=== PATIENT | male | born 1940 | race Caucasian/White ===

== ENCOUNTER 2023-07-23 10:38 | Emergency (ER) | payer OTHER, SELFPAY ==
[2023-07-23 10:42] VITALS: BP 151/62; PULSE 104; RESP 18; TEMP 36.2; O2SAT 94; BMI 27.4
[2023-07-23 11:00] VITALS: O2SAT 95
--- NOTE | 2023-07-23 11:00 | XR_ITS ---
Patient: PAULO DUBOIS Facility:?[facility] Patient ID:?[id number] Site Patient ID:?[id number]. Site :?[id number] Study:?XRay-Chest CHEST XR 2 VIEWS-07/23/2023 11:23:29 AM Ordering Physician:CORY Final Report: Indication: Shortness of breath Technique: Chest 2 views Comparison: None Findings/Impression: Cardiovascular and mediastinum: Borderline heart size with atherosclerotic calcification. Lungs and pleural spaces: No pleural effusion or pneumothorax. Mild hyperinflation with basilar discoid atelectasis, greater on the left. Bones and soft tissues: No significant findings. Dictated by Yohan Rocha MD @ 07/23/2023 11:47:05 AM Signed by:?Yohan Rocha MD @07/23/2023 11:47:05 AM (Electronic Signature)
[2023-07-23 11:17] LABS: Lactate* 1.7 mmol/L (0.5-1.9)
[2023-07-23 11:23] LABS: Basophils Absolute Auto 0.03 K/uL (0.00-0.30); Basophils Percent Auto 0.4 % (0.0-3.0); Eosinophils Absolute Auto 0.09 K/uL (0.00-0.50); Eosinophils Percent Auto 1.2 % (0.0-7.0); Hematocrit 47.9 % (37.0-53.0); Hemoglobin* 15.7 gm/dL (13.5-17.5); Immature Granulocytes Abs Auto 0.02 K/uL (0.00-0.30); Immature Granulocytes Pct Auto 0.3 %; Lymphocytes Percent Auto 19.9 % (20-44); Mean Corpuscular HGB Conc 33 gm/dL (32-36); Mean Corpuscular Hemoglobin 31 pg (26-34); Mean Corpuscular Volume 94 fL (80-100); Monocytes Percent Auto 7.9 % (0.0-11.0); Neutrophils Absolute Auto 5.49 K/uL (1.7-7.0); Neutrophils Percent Auto 70.3 % (42.0-72.0); Platelet Count* 233 K/uL (140-440); RDW Coefficient of Variation % 14.5 % (11.5-15.5); Red Blood Count 5.08 m/uL (4.30-5.90)
[2023-07-23 11:26] LABS: Slide Review Reflex No
[2023-07-23] MEDS: METOPROLOL TARTRATE 1 MG/ML inj 5 MG IVP (11:33)
--- NOTE | 2023-07-23 11:35 | ED_ITS ---
HPI - General Adult General Chief complaint: Arrhythmia/Palpitations Stated complaint: afib Time Seen by Provider: 07/23/23 10:44 Source: patient Mode of arrival: ambulatory Limitations: no limitations History of Present Illness HPI narrative: 82-year-old male coming in today or shortness of breath. Patient was diagnosed with atrial fibrillation about a week ago. He was placed on Eliquis and metoprolol 12.5 mg p.o. b.i.d.. He is not sure what his pulse has been but he does state that he has been short of breath for several weeks now and in the last 1 week or so it has gotten worse. He feels short of breath at rest and with activity. He denies any chest pain, nausea or vomiting. No fevers or chills. No dizziness or diaphoresis. He was getting an echocardiogram today when he mentioned that he felt short of breath and he was sent to the ER for evaluation. Per the reproduction technician, pulse ranged between 110 and 150. Patient denies any chest pain. 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 - Carcinoma in situ of bladder (ICD-10) Surgical History History of bladder surgery ?Z98.890 - Other specified postprocedural states (ICD-10) History of prostatectomy ?Z90.79 - Acquired absence of other genital organ(s) (ICD-10) History of tonsillectomy (02/04/13) ?Z90.89 - Acquired absence of other organs (ICD-10) History of colonoscopy ?Z98.890 - Other specified postprocedural states (ICD-10) History of appendectomy ?Z90.49 - Acquired absence of other specified parts of digestive tract (ICD- 10) Family History Mother Breast cancer Endogenous hypertriglyceridemia Other Stroke Social History Narrative: Has 3 children Smoking Status: Never smoker Do you use any of these nicotine containing products: None How often do you have a drink containing alcohol: never AUDIT-C Alcohol total score: 0 Exam Narrative: Exam Narrative: Well-nourished well-developed patient in no acute distress. Alert and oriented. Answers questions appropriately. Mood and affect are appropriate. Thoughts are goal oriented and rational. No tangential or magical thinking noted. Patient speaks in full sentences without needing to catch his breath. HEENT: Normocephalic atraumatic. Pupils are equally round reactive to light. Extraocular muscles are intact. Conjunctivae are moist without any icterus noted. Moist mucous membranes. Neck is soft. Cardiovascular: Tachycardic, irregularly irregular. Lungs: Clear to auscultation bilaterally no wheezes rhonchi or rales are appreciated. Patient takes deep breaths without any discomfort. Abdomen: Soft and nontender nondistended with normal bowel sounds. No guarding or rebound. Extremities: Bilateral lower extremities are without edema. Skin: Well perfused without any obvious rashes. Const: Vital Signs, click to edit/add: Vital Signs - 24 hr 07/23/23 10:42 Temperature 97.2 F L Pulse Rate [Pulse Oximeter] 104 H Respiratory Rate 18 Blood Pressure [Le ft Upper Arm] 151/62 H Pulse Oximetry 94 Oxygen Delivery Me thod Room Air Course Course ED Course: EKG, read by me, shows atrial fibrillation with RVR, pulse is 124. IV is established patient received 5 mg of IV metoprolol. Pulse came down to the 90s. Oxygen saturation remained around 95% at rest, 94 95% with ambulation. Blood work was unremarkable, including troponin and D-dimer. Chest x-ray, read by me, did not show any concerning pathology. Patient is given another 12.5 mg of oral metoprolol prior to discharge. Will increase his daily doses 25 mg p.o. b.i.d.. Vital Signs Vital signs: Initial Vital Signs Respiratory Effort Normal, Spontaneous, Labored, SOB at Exertion 07/23/23 10:40 Respiratory Depth Normal 07/23/23 10:40 Vital Signs Temperature 97.2 F L 07/23/23 10:42 Pulse Rate 104 H 07/23/23 10:42 Respiratory Rate 18 07/23/23 10:42 Blood Pressure 151/62 H 07/23/23 10:42 Pulse Oximetry 94 07/23/23 10:42 Oxygen Delivery Method Room Air 07/23/23 10:42 Temperature 97.2 F L 07/23/23 10:42 Pulse Rate 104 H 07/23/23 10:42 Respiratory Rate 18 07/23/23 10:42 Blood Pressure 151/62 H 07/23/23 10:42 Pulse Oximetry 94 07/23/23 10:42 Oxygen Delivery Method Room Air 07/23/23 10:42 Medications Administered Medications: Discontinued Medications Generic Name Dose Route Start Last Admin Trade Name Freq PRN Reason Stop Dose Admin Metoprolol Tartrate 5 mg 07/23/23 11:00 07/23/23 11:33 Metoprolol Tartrate 1 Mg/Ml Inj IVP 07/23/23 11:01 5 mg ONCE ONE Administration Medical Decision Making MDM Narrative Medical decision making narrative: 82-year-old male with shortness of breath for several weeks, new onset atrial fibrillation not properly rate controlled at this time. He is anticoagulated. We will increase his metoprolol to 25 mg p.o. b.i.d.. Recommend follow-up with his primary care provider this week. Medical Records Medical records reviewed: Yes I reviewed the patient's medical records Lab Data Lab results reviewed: Yes I reviewed the patient's lab results Labs: Lab Results 07/23/23 07/23/23 Range/Units 11:01 11:08 WBC 7.80 (4.50-11.00) K/uL RBC 5.08 (4.30-5.90) m/uL Hgb 15.7 (13.5-17.5) gm/dL Hct 47.9 (37.0-53.0) % MCV 94 (80-100) fL MCH 31 (26-34) pg MCHC 33 (32-36) gm/dL RDW Coeff of Mima 14.5 (11.5-15.5) % Plt Count 233 (140-440) K/uL Neut % (Auto) 70.3 (42.0-72.0) % Lymph % (Auto) 19.9 L (20-44) % [place] % (Auto) 7.9 (0.0-11.0) % Eos % (Auto) 1.2 (0.0-7.0) % Baso % (Auto) 0.4 (0.0-3.0) % Neut # (Auto) 5.49 (1.7-7.0) K/uL Lymph # (Auto) 1.60 (0.90-2.90) K/uL [place] # (Auto) 0.60 (0.00-0.90) K/UL Eos # (Auto) 0.09 (0.00-0.50) K/uL Baso # (Auto) 0.03 (0.00-0.30) K/uL Abs Immat Gran (auto) 0.02 (0.00-0.30) K/uL Imm/Tot Granulo (auto) 0.3 % D-Dimer Quant (PE/DVT) 0.44 (0.00-0.50) ug/ml Sodium 141 (135-149) mmol/L Potassium 4.3 (3.6-5.1) mmol/L Chloride 109 (96-114) mmol/L Carbon Dioxide 23 (20-32) mmol/L Anion Gap 9 (7-15) mEq/L BUN 23 (7-30) mg/dL Creatinine 1.0 (0.5-1.5) mg/dL Estimated Creat Clear 55.08 Estimated GFR 76 ml/min Glucose 115 (60-115) mg/dL Lactate 1.7 (0.5-1.9) mmol/L Calcium 9.4 (8.4-10.6) mg/dL Magnesium 2.0 (1.5-2.6) mg/dL Total Bilirubin 1.0 (0.1-1.5) mg/dL Direct Bilirubin 0.3 (0.0-0.5) mg/dL AST 35 (12-35) U/L ALT 25 (4-50) U/L Alkaline Phosphatase 74 (40-150) U/L Troponin I 0.02 (0.01-0.04) ng/mL C-Reactive Protein < 0.5 L (0.5-1.0) mg/dL Total Protein 7.9 (6.0-8.3) g/dL Albumin 4.4 (3.3-5.0) g/dL POC Troponin I 0.00 L (0.01-0.04) ng/ml Imaging Data Chest x-ray: Attestation: I have reviewed the pertinent imaging results. Radiologist's impression: Shortness of breath Technique: Chest 2 views Comparison: None Findings/Impression: Cardiovascular and mediastinum: Borderline heart size with atherosclerotic calcification. Lungs and pleural spaces: No pleural effusion or pneumothorax. Mild hyperinflation with basilar discoid atelectasis, greater on the left. Bones and soft tissues: No significant findings. Discharge Plan Discharge Clinical Impression: Atrial fibrillation with rapid ventricular response Patient Disposition: Home, Self-Care Condition: Stable Additional Instructions: Increase metoprolol to 25 mg twice daily. Follow-up with your primary care provider in the next 48-72 hours. Prescriptions: No Action metoprolol succinate 25 mg tablet extended release 24 hr 12.5 mg PO QDAY Qty: 30 0RF Eliquis 2.5 mg tablet 2.5 mg PO BID Qty: 60 1RF Follow Up/Referrals: Sara Laureano PA-C [Primary Care Provider] - Stand Alone Forms: Datapipe Info Instructions
[2023-07-23 11:37] LABS: Albumin* 4.4 g/dL (3.3-5.0)
[2023-07-23 11:38] LABS: Chloride* 109 mmol/L (96-114); Potassium* 4.3 mmol/L (3.6-5.1); Sodium* 141 mmol/L (135-149)
[2023-07-23 11:40] LABS: Aspartate Amino Transferase* 35 U/L (12-35); Bilirubin Direct* 0.3 mg/dL (0.0-0.5); Total Protein* 7.9 g/dL (6.0-8.3)
[2023-07-23 11:41] LABS: Alanine Aminotransferase* 25 U/L (4-50); Alkaline Phosphatase* 74 U/L (40-150); Est. Creatinine Clearance* 55.08; Estimated Glomerular Filt Rate 76 ml/min
[2023-07-23 11:42] LABS: Anion Gap 9 mEq/L (7-15); Blood Urea Nitrogen* 23 mg/dL (7-30); Calcium* 9.4 mg/dL (8.4-10.6); Carbon Dioxide* 23 mmol/L (20-32); Glucose* 115 mg/dL (60-115)
[2023-07-23 11:44] LABS: D Dimer Quantitative* 0.44 ug/ml (0.00-0.50)
[2023-07-23 11:53] LABS: Troponin I* 0.02 ng/mL (0.01-0.04)
[2023-07-23 11:56] LABS: C Reactive Protein* < 0.5 mg/dL (0.5-1.0)
[2023-07-23 12:45] VITALS: BP 122/80; PULSE 89; RESP 18; O2SAT 95
== END 2023-07-23 12:48 | disposition home or self-care (01) ==
PROVIDERS: Emergency Provider Family Medicine; PCP Physician Assistant Medical
DX: I48.20 Chronic atrial fibrillation, unspecified (principal)
CPT/HCPCS: 36415; 71046; 80048; 80076; 83605; 83735; 84484; 85025; 85379; 86140; 93005; 93306; 94761; 99284; 99285

== ENCOUNTER 2023-08-07 09:59 | Outpatient (CLI) | payer OTHER, SELFPAY | END 2023-08-07 10:00 | disposition home or self-care (01) | LOC: FRMREF 09:59 | PROVIDERS: PCP Physician Assistant Medical; Visit Provider Physician Assistant Medical | DX: I50.20 Unspecified systolic (congestive) heart failure (principal) | CPT/HCPCS: 80061 ==

== ENCOUNTER 2023-08-13 09:35 | Outpatient (CLI) | payer OTHER, SELFPAY ==
--- NOTE | 2023-08-13 10:00 | CT_ITS ---
Patient: PAULO DUBOIS Facility:?[facility] Patient ID:?[id number] Site Patient ID:?[id number]. Site :?1940 Study:?CT-Chest LUNG SCREENING-08/13/2023 11:09:35 AM Ordering Physician:?SEBASTIÁN CRAWFORD Final Report: INDICATION: Lung cancer screening. Significant smoking history. TECHNIQUE: Low-dose volumetric helical scanning of the thorax was performed without IV contrast material. Coronal and sagittal reconstructions were obtained. COMPARISON: Chest x-ray of 07/23/2023 FINDINGS: A noncalcified 7 mm right lower lobe base nodule is noted on image 103 of series 3 and a noncalcified 6 mm right upper lobe nodule is demonstrated on image 40. Centrilobular emphysema is demonstrated. No infiltrate is noted. There is no significant airway abnormality. No pleural effusion is demonstrated. Several mildly enlarged mediastinal lymph nodes are demonstrated. No hilar adenopathy is demonstrated. The heart size is normal. Calcified coronary arterial plaque is demonstrated. Images of the upper abdomen demonstrate a 1.5 cm left renal cyst. IMPRESSION: 1. Noncalcified 7 mm right lower lobe nodule and 6 mm right upper lobe nodule. Lung-RADS CATEGORY 3: PROBABLY BENIGN: 6-month follow up low-dose chest CT recommended. 2. Centrilobular emphysema. Please note that all CT scans at this facility use dose modulation, iterative reconstruction, and/or weight-based dosing when appropriate to reduce radiation dose to as low as reasonably achievable. Dictated by Harshad Pino MD @ 08/13/2023 4:47:03 PM Signed by:?Harshad Pino MD @08/13/2023 4:47:03 PM (Electronic Signature)
--- NOTE | 2023-08-13 11:00 | US_ITS ---
Patient: PAULO DUBOIS Facility:?[facility] Patient ID:?[id number] Site Patient ID:?[id number] Site :?[id number] Study:?US-Abdomen AAA SCREENING-08/13/2023 10:16:21 AM Ordering Physician:MARGI LOWERY Final Report: INDICATION: Screening for abdominal aortic aneurysm. History of nicotine dependence. TECHNIQUE: Conventional two-dimensional grayscale, color-flow and pulsed Doppler ultrasound examination of the abdominal aorta and the common iliac arteries. COMPARISON: None. FINDINGS: Mild atherosclerotic disease is demonstrated, but the abdominal aorta is normal in caliber at 2.4 cm in maximal cross-sectional dimension above the level of the renal artery origins and 2.6 cm below the level of the renal arteries. The common iliac arteries are also normal in caliber. The right measures 1.4 cm in maximal cross-sectional dimension and the left 1.3 cm. IMPRESSION: Negative abdominal aortic ultrasound except for mild atherosclerosis. Dictated by Harshad Pino MD @ 08/13/2023 2:58:54 PM Signed by:?Harshad Pino MD @08/13/2023 2:58:54 PM (Electronic Signature)
== END 2023-08-13 09:36 | disposition home or self-care (01) ==
LOC: CT 09:36
PROVIDERS: PCP Physician Assistant Medical; Visit Provider Family Medicine
DX: Z12.2 Encounter for screening for malignant neoplasm of respiratory organs (principal); R91.8 Other nonspecific abnormal finding of lung field; J43.8 Other emphysema; Z87.891 Personal history of nicotine dependence
CPT/HCPCS: 71271; 76706

== ENCOUNTER 2023-09-25 09:22 | Outpatient (CLI) | payer OTHER, SELFPAY ==
--- NOTE | 2023-10-10 08:26 | W.PM.SLEEP ---
Sleep Study Details Details Interpreting Provider: Viktoriya Date of Sleep Study: 09/25/23 Sleep Study Details: STUDY TYPE:? Home unattended ? BMI: Not recorded ORDERING PROVIDER:? Viktoriya INDICATION:? Concerns about sleep apnea ? SLEEP SUMMARY:? 177 minutes monitored RESPIRATORY SUMMARY:? AHI 21.4 per CMS guideline nearly 1/2 of the apneas were central Low oxygen 87 19.7% of study oxygen less than 90% snoring 336 minutes PERIODIC LIMB MOVEMENTS OF SLEEP:? Not recorded CARDIAC:? Range 43-61, mean 50.5 IMPRESSION:? 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 Patient may require ASV. If possible an echocardiogram should be done prior to determine ejection fraction.
== END 2023-09-25 09:23 | disposition home or self-care (01) ==
LOC: SLEEP 09:23
PROVIDERS: PCP Physician Assistant Medical; Visit Provider Otolaryngology
DX: G47.33 Obstructive sleep apnea (adult) (pediatric) (principal)
CPT/HCPCS: 95806

== ENCOUNTER 2023-11-13 19:55 | Outpatient (CLI) | payer OTHER, SELFPAY ==
--- OUTSIDE RECORDS SUMMARY | 2023-11-13 19:58 | XMS_ITS ---
Author Organization [facility] Address [address] [place] [id number] Care Team Providers Care Watch Dial Printer Name Role Phone Pilo Cameron Primary Care Provider + [phone] Weight, Kiran Valdes MD Unavailable Active Problems Problem Noted Date Diagnosed Date Ventral hernia 12/02/2015 Vitamin B12 deficiency without anemia 10/07/2014 Overview: Diagnosis updated by automated process. Provider to review and confirm. Bladder cancer 01/24/2013 CA - bladder cancer 09/23/2012 Overview: Problem list name updated by automated process. Provider to review and confirm Bladder tumor 08/14/2012 Gross hematuria 08/14/2012 Current Oncology Plans No current plan information found. Past Plans INFUSION Plan Name Start Date Discontinue Date Treatment Medications Discontinue Reason Plan Provider VASCULAR ACCESS DEVICE MANAGEMENT - ADULT 12/26/2018 06/28/2020 No medications scheduled. Therapy Complete Manoj Bee MD GENERIC INFUSION 12/31/2017 12/26/2018 No medications scheduled. Therapy Complete - GENERIC INFUSION 11/26/2017 11/29/2017 No medications scheduled. Change in Level of Care - GENERIC INFUSION 06/03/2015 11/15/2017 No medications scheduled. Change in Level of Care - ONCOLOGY TREATMENT Plan Name Start Date Discontinue Date Treatment Medications Discontinue Reason Plan Provider Cycles OP ONC Bladder Cancer Gemcitabine / CISplatin 3 12/29/2016 CISplatin (PLATINOL) infusiongemcitabine (GEMZAR) infusion Therapy Complete Chris Armstrong MD 4 of 4 cycles started Radiation Treatments * No radiation treatments are documented for this patient in [facility]. Treatments may have been administered in another system.
--- OUTSIDE RECORDS SUMMARY | 2023-11-13 19:58 | XMS_ITS | Clinical Summary ---
Author Organization [facility] Address [address] [place] [address] Care Team Providers Care Operational Assistant Name Role Phone Pilo Cameron Primary Care Provider + [phone] Weight, Kiran Valdes MD Unavailable Allergies Active Allergy Reactions Criticality Noted Date Comments Menthol (Topical Analgesic) Rash Low 08/13/19 13 Medications Medication Sig Dispensed Refills Start Date End Date Status Cyanocobalamin (VITAMIN B-12) 2500 MCG tabletIndication s:Malignant neoplasm of urinary bladder, unspecified site (H),Vitamin B12 deficiency (non anaemic) Place 2,500 mcg under the tongue daily 30 tablet 6 10/07/2014 Active Additional Information Patient taking differently: 5,000 mcgSublingual DAILY, Reported on 08/07/2016 NO ACTIVE MEDICATIONS 12/12/19 13 Discontinued( Stopped Prior to Admission or erroneus entry) Active Problems Problem Noted Date Diagnosed Date Ventral hernia 12/02/2015 Vitamin B12 deficiency without anemia 10/07/2014 Overview: Diagnosis updated by automated process. Provider to review and confirm. Bladder cancer 01/24/2013 CA - bladder cancer 09/23/2012 Overview: Problem list name updated by automated process. Provider to review and confirm Bladder tumor 08/14/2012 Gross hematuria 08/14/2012 Immunizations Name Administration Dates Next Due COVID-19 Monovalent 18+ (Moderna) 07/27/2020 Family History Medical History Relation Comments Cancer Brother Cerebrovascular Disease Father Breast Cancer Mother Cerebrovascular Disease Mother Colon Cancer No family hx of Relation Status Comments Brother Father Mother Social History Tobacco Use Types Packs/Day Years Used Date Smoking Tobacco: Former Cigarettes 0.5 50 0 10/22/1962 - 10/22/2012 Smokeless Tobacco: Never Alcohol Use Standard Drinks/Week Comments Yes 0 (1 standard drink = 0.6 oz pur e alcohol) 4 beers daily PHQ-2 Answer Date Recorded PHQ-2 Score 0 02/10/2021 Adolescent Education Answer Date Record ed Getting School Help Needed Not on file 01/22 Sex and Gender Information Value Date Recorded Sex Assigned at Not on file Gender Identity Not on file Sexual Orientation Not on file Last Filed Vital Signs Vital Sign Reading Time Taken Comments Blood Pressure 165/91 02/10/2021 9:50 AM CDT Pulse 90 02/10/2021 9:50 AM CDT Temperature 36.4 ??C (97.5 ??F) 05/21/2019 10:[address] Respiratory Rate 16 05/21/2019 10:56 AM SKIDDER OPERATOR Oxygen Saturation 95% 05/21/2019 10:56 AM SKIDDER OPERATOR Inhaled Oxygen Concentration - - Weight 79.4 kg (175 lb) 02/10/2021 9:50 AM CDT Height 170.2 cm (5' 7) 02/10/2021 9:50 AM CDT Body Mass Index 27.41 02/10/2021 9:50 AM CDT Plan of Treatment Health Maintenance Due Date Last Done Comments ADVANCE CARE PLANNING 1940 ANNUAL REVIEW OF HM ORDERS 1940 DTAP/TDAP/TD IMMUNIZATION (1 - Tdap) 10/14/1967 ZOSTER IMMUNIZATION (1 of 2) 1992 RSV VACCINE ( & 60+) (1 - 1-dose 60+ series) 2002 FALL RISK ASSESSMENT 10/14/2007 MEDICARE ANNUAL WELLNESS VISIT 10/14/2007 Pneumococcal Vaccine: 65+ Years (1 of 1 - PCV) 10/14/2007 COVID-19 Vaccine (3 - season) 2022 07/27/2020, 06/30/2020 PHQ-2 (once per calendar year) 2023 02/10/2021, 08/07/2016, 02/07/2016, Additional history exists INFLUENZA VACCINE (#1) 2023 COLONOSCOPY Discontinued 03/29/2017, 11/21, 09/18/2012, Additional history exists COLORECTAL CANCER SCREENING Discontinued LUNG CANCER SCREENING Discontinued 02/04/2018 , 02/05/2017, 08/02/2015, Additional history exists CT COLONOGRAPHY Discontinued FIT Discontinued FLEX SIG Discontinued HPV IMMUNIZATION Aged Out No longer e ligible based on patient's age to complete this topic IPV IMMUNIZATION Aged Out No longer e ligible based on patient's age to complete this topic MENINGITIS IMMUNIZATION Aged Out No l onger eligible based on patient's age to complete this topic RSV MONOCLONAL ANTIBODY Aged Out No l onger eligible based on patient's age to complete this topic sDNA (Cologuard) Discontinued Medical Devices Implanted Type Area Operations Expert Device Identifier Shelf Expiration Date Model / Serial / Lot Parietex Composite Parastomal Mesh Implanted:Qty: 1 on 12/02/2015 by Rocky Sands MD at [facility] Mesh N/A: Abdomen COVIDIEN 08/20/2018 [id number] / / [id number] Stent Ureteral Dbl Pigtail Inlay [id number] Implanted:Qty: 1 on 08/14/2012 by Salvador Yoo MD at [facility] Left: Ureter [employer] 04/21/2017 [id number] / / [id number] Stent Urinary Diversion Percflex Set [id number] W/Gw Implanted:Qty: 1 on 01/24/2013 by Ana Madrid MD at [facility] [employer] 10/20/2016 160-210 / / [id number] Mesh Symbotex Composite Stex Round 12cm Sym12 Implanted:Qty: 1 on 12/02/2015 by Rocky Sands MD at [facility] N/A: Abdomen COVIDIEN 01/21/2020 [id number] / / [id number] Description:RInsed mesh impl ant per Covidien Rep recommendations: sterile 0.9% normal saline from 1177-5544 hours. Saline lot: [id number], expiration date: 10/20/2018. This implant is NOT tissue. Procedures Procedure Name Priority Date/Time Associated Diagnosis Comments CT CHEST ABDOMEN PELVIS W/O CONTRAST Routine 02/04/2018 9:22 AM CDT Bladder tumor COLONOSCOPY Routine 03/29/2017 12:52 PM SKIDDER OPERATOR from Last 3 Months or Most Recently Relevant to Health Maintenance Results * CT Chest Abdomen Pelvis w/o Contrast (02/04/2018 9:22 AM CDT) Anatomical Region Laterality Modality Abdomen/Pelvis, SUBRAD CT ZULEMA DY, UMP CT CHEST, UMP CT ABDOMEN PELVIS, Chest, RAD CT Computed Tomography Impressions 02/04/2018 9:51 AM CDT IMPRESSION: 1. No significant interval change. No evidence of recurrent or metastatic disease. 2. Stable bilateral adrenal gland nodularity. 3. Stable small lung nodules. ANAM DIAZ MD Narrative 02/04/2018 9:[address] CHEST, ABDOMEN AND PELVIS WITHOUT CONTRAST ??02/04/2018 9:22 AM HISTORY: ??Follow up bladder cancer. Bladder tumor. TECHNIQUE: CT scan obtained of the chest, abdomen, and pelvis without IV contrast. Radiation dose for this scan was reduced using automated exposure control, adjustment of the mA and/or kV according to patient size, or iterative reconstruction technique. COMPARISON: ??02/05/2017. FINDINGS: Chest: There is again a 0.3 cm nodule in the right upper lobe posteriorly. 0.5 cm nodule at the right lung base laterally is stable. Slight nodularity along the right major and minor fissures is stable and of doubtful significance. Mild scarring in the inferior lingula and right middle lobe. Mild scarring in the posterior lung bases. No pneumothorax or pleural effusion. No lymph node enlargement. The heart size is normal. Right chest wall port. Abdomen: Evaluation of the solid abdominal organs is limited by the lack of intravenous contrast. The liver, spleen, gallbladder, pancreas and kidneys are normal in appearance. A 1.2 cm left adrenal gland nodule and nodular thickening of both adrenal glands is stable. There is no abdominal or pelvic lymph node enlargement. There is atherosclerotic calcification of the aorta and its branches. No aneurysm. Pelvis: The urinary bladder is absent. There is a right lower quadrant ileal loop. There are colonic diverticula without acute diverticulitis. No bowel obstruction or inflammation. No free intraperitoneal gas or fluid. Degenerative disease in the spine. Procedure Note Anam Diaz MD - 02/04/2018 CT CHEST, ABDOMEN AND PELVIS WITHOUT CONTRAST 02/04/2018 9:22 AM HISTORY: Follow up bladder cancer. Bladder tumor. TECHNIQUE: CT scan obtained of the chest, abdomen, and pelvis without IV contrast. Radiation dose for this scan was reduced using automated exposure control, adjustment of the mA and/or kV according to patient size, or iterative reconstruction technique. COMPARISON: 02/05/2017. FINDINGS: Chest: There is again a 0.3 cm nodule in the right upper lobe posteriorly. 0.5 cm nodule at the right lung base laterally is stable. Slight nodularity along the right major and minor fissures is stable and of doubtful significance. Mild scarring in the inferior lingula and right middle lobe. Mild scarring in the posterior lung bases. No pneumothorax or pleural effusion. No lymph node enlargement. The heart size is normal. Right chest wall port. Abdomen: Evaluation of the solid abdominal organs is limited by the lack of intravenous contrast. The liver, spleen, gallbladder, pancreas and kidneys are normal in appearance. A 1.2 cm left adrenal gland nodule and nodular thickening of both adrenal glands is stable. There is no abdominal or pelvic lymph node enlargement. There is atherosclerotic calcification of the aorta and its branches. No aneurysm. Pelvis: The urinary bladder is absent. There is a right lower quadrant ileal loop. There are colonic diverticula without acute diverticulitis. No bowel obstruction or inflammation. No free intraperitoneal gas or fluid. Degenerative disease in the spine. IMPRESSION: 1. No significant interval change. No evidence of recurrent or metastatic disease. 2. Stable bilateral adrenal gland nodularity. 3. Stable small lung nodules. ANAM DIAZ MD Elder Thorpe MD [facility] [place]LES * COLONOSCOPY (03/29/2017 12:52 PM SKIDDER OPERATOR) COLONOSCOPY [facility] Patient Name: Alis Greg Mcguire ?Procedure Date: 03/29/2017 12:52 PM ? Date of : 1940 ?Admit Type: Outpatient Age: 76 ? Gender: Male Attending MD: Ever Motley MD ?Total Sedation Time: Instrument Name: 122 ? Procedure: ?Colonoscopy Indications: ?High risk colon cancer surveillance: Personal ?history of colonic polyps Providers: ?Ever Motley MD (Doctor) Referring MD: ? Pilo Cameron MD (Referring MD) Medicines: ?Midazolam 2 mg IV, Fentanyl 150 micrograms IV. The ?MD provided 19 minutes of 1:1 continuous bedside ?monitoring. Complications: ?No immediate complications. Procedure: ?Pre-Anesthesia Assessment: ?- Prior to the procedure, a History and Physical ?was performed, and patient medications and ?allergies were reviewed. The patient is competent. ?The risks and benefits of the procedure and the ?sedation options and risks were discussed with the ?patient. All questions were answered and informed ?consent was obtained. Patient identification and ?proposed procedure were verified by the physician ?in the endoscopy suite. Mental Status Examination: ?alert and oriented. Airway Examination: normal ?oropharyngeal airway and neck mobility. Respiratory ?Examination: clear to auscultation. CV Examination: ?normal. Prophylactic Antibiotics: The patient does ?not require prophylactic antibiotics. Prior ?Anticoagulants: The patient has taken no previous ?anticoagulant or antiplatelet agents. ASA Grade ?Assessment: II - A patient with mild systemic ?disease. After reviewing the risks and benefits, ?the patient was deemed in satisfactory condition to ?undergo the procedure. The anesthesia plan was to ?use moderate sedation / analgesia (conscious ?sedation). Immediately prior to administration of ?medications, the patient was re-assessed for ?adequacy to receive sedatives. The heart rate, ?respiratory rate, oxygen saturations, blood ?pressure, adequacy of pulmonary ventilation, and ?response to care were monitored throughout the ?procedure. The physical status of the patient was ?re-assessed after the procedure. ?After obtaining informed consent, the colonoscope ?was passed under direct vision. Throughout the ?procedure, the patient's blood pressure, pulse, and ?oxygen saturations were monitored continuously. The ?Olympus Adult Colonoscope Model #CF-BO054C, ?Endora#122, SN#[id number] was introduced through the ?anus and advanced to the cecum, identified by ?appendiceal orifice and ileocecal valve. The ?colonoscopy was performed with difficulty due to ?restricted mobility of the colon. Successful ?completion of the procedure was aided by increasing ?the dose of sedation medication and applying ?abdominal pressure. The patient tolerated the ?procedure well. The quality of the bowel ?preparation was good. ? Findings: ? The perianal and digital rectal examinations were normal. Pertinent ? negatives include normal sphincter tone and no palpable rectal lesions. ? A 5 mm polyp was found in the transverse colon. The polyp was sessile. ? The polyp was removed with a cold snare. Resection and retrieval were ? complete. ? Multiple small and large-mouthed diverticula were found in the sigmoid ? colon and descending colon. There was no evidence of diverticular ? bleeding. ? The exam was otherwise without abnormality on direct and retroflexion ? views. ? Impression: ? - One 5 mm polyp in the transverse colon, removed ?with a cold snare. Resected and retrieved. ?- Diverticulosis in the sigmoid colon and in the ?descending colon. There was no evidence of ?diverticular bleeding. ?- The examination was otherwise normal on direct ?and retroflexion views. Recommendation: ? - Await pathology results. ?- Repeat colonoscopy in 5 years for surveillance. ? Procedure Code(s): ? --- Professional --- ? 66603, Colonoscopy, flexible; with removal of tumor(s), polyp(s), or ? other lesion(s) by snare technique Diagnosis Code(s): ? --- Professional --- ? 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 Z86.010, Personal history of colonic polyps ? K57.30, Diverticulosis of large intestine without perforation or abscess ? without bleeding CPT copyright 2016 [employer]. All rights reserved. The codes documented in this report are preliminary and upon lead business systems analyst review may be revised to meet current compliance requirements. _ Ever Motley MD 03/29/2017 2:35:40 PM I was physically present for the entire viewing portion of the exam. Ever Motley MD Number of Addenda: 0 Note Initiated On: 03/29/2017 12:52 PM MRN: ?[id number] Procedure Date: ? 03/29/2017 12:52:56 PM Scope Withdrawal Time: 0 hours 7 minutes 45 seconds Total Procedure Duration: 0 hours 17 minutes 46 seconds Estimated Blood Loss: ? Scope In: 2:06:33 PM Scope Out: 2:24:19 PM RADIOLOGY RESULTS 03/29/2017 12:5 2 PM SKIDDER OPERATOR Pilo Cameron PROCEDURES RADIOLOGY RESULTS from Last 3 Months or Most Recently Relevant to Health Maintenance Advance Directives For more information, please contact: [phone] * Full Code (Latest Code Status on File) Date Activated Date Inactivated Comments 01/24/2013 7:26 PM 01/30/2013 9:10 PM * Full Code Date Activated Date Inactivated Comments 08/14/2012 6:44 PM 08/16/2012 3:20 PM * Full Code Date Activated Date Inactivated Comments 08/14/2012 5:40 PM 08/14/2012 6:44 PM Care Teams Operational Assistant Relationship Specialty Start Date End Date Pilo Cameron [address] [address] PCP - General Family Practice 02/05/13 Weight, Kiran Valdes MD [address] [place] [address] Urology 10/13/14
--- OUTSIDE RECORDS SUMMARY | 2023-11-13 19:58 | XMS_ITS | Referral Summary ---
Author Organization [facility] Address [address] [place] [address] Care Team Providers Care Nitric Acid Concentrator Operator Name Role Phone Pilo Cameron Primary Care Provider + [phone] Weight, Kiran Valdes MD Unavailable Allergies Active [...] Next Due COVID-19 Monovalent 18+ (Moderna) 07/27/2020 Social History Tobacco Use Types Packs/Day Years [...] ST Respiratory Rate 16 05/21/2019 10:56 AM MAILING SECTION CLERK Oxygen Saturation 95% 05/21/2019 10:56 AM MAILING SECTION CLERK Inhaled Oxygen Concentration - - Weight 79.4 kg (175 lb) 02/10/2021 9:50 AM CDT Height 170.2 cm (5' 7) 02/10/2021 9:50 AM CDT Body Mass Index 27.41 02/10/2021 9:50 AM CDT Plan of Treatment Not on file Medical Devices Implanted Type Area Boat Hoist Operator Device Identifier Shelf Expiration Date Model / Serial / Lot Parietex Composite Parastomal Mesh Implanted:Qty: 1 on 12/02/2015 by Rocky Sands MD at [facility] Mesh N/A: Abdomen COVIDIEN 08/20/2018 PCOPM20 / / [id number] Stent Ureteral Dbl Pigtail Inlay [id number] Implanted:Qty: 1 on 08/14/2012 by Salvador Yoo MD at [facility] Left: Ureter [employer] 04/21/2017 [id number] / / [id number] Stent Urinary Diversion Percflex Set [id number] W/Gw Implanted:Qty: 1 on 01/24/2013 by Ana Madrid MD at [facility] [employer] 10/20/2016 160-210 / / [id number] Mesh Symbotex Composite Stex Round 12cm Sym12 Implanted:Qty: 1 on 12/02/2015 by Rocky Sands MD at [facility] N/A: Abdomen COVIDIEN 01/21/2020 SYM12 / / [id number] Description:RInsed mesh impl ant per Covidien Rep recommendations: sterile 0.9% normal saline from 0624-6738 hours. Saline lot: [id number], expiration date: 10/20/2018. This implant is NOT tissue. Procedures Procedure Name Priority Date/Time Associated Diagnosis Comments CT CHEST ABDOMEN PELVIS W/O CONTRAST Routine 02/04/2018 9:22 AM CDT Bladder tumor COLONOSCOPY Routine 03/29/2017 12:52 PM MAILING SECTION CLERK from Last 3 Months or Most Recently [...] nodules. ANAM DIAZ MD Elder Thorpe MD IMG CT ORDERABLES * COLONOSCOPY (03/29/2017 12:52 PM MAILING SECTION CLERK) COLONOSCOPY [facility] Patient Name: Alis Mcguire ?Procedure Date: 03/29/2017 12:52 PM ? [...] monitored continuously. The ?Olympus Adult Colonoscope Model #CF-LU217V, ?Endora#122, SN#[id number] was introduced through the ?anus and advanced [...] Procedure Code(s): ? --- Professional --- ? 48007, Colonoscopy, flexible; with removal of tumor(s), polyp(s), or ? other lesion(s) by snare technique Diagnosis Code(s): ? --- Professional --- ? 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 Z86.010, Personal history of colonic polyps ? K57.30, Diverticulosis of large intestine without perforation or abscess ? without bleeding CPT copyright 2016 [employer]. All rights reserved. The codes documented in this report are preliminary and upon sampler radioactive waste review may be revised to meet current compliance requirements. _ Ever Motley MD 03/29/2017 2:35:40 PM I was physically present for the entire viewing portion of the exam. Ever Motley MD Number of Addenda: 0 Note Initiated On: 03/29/2017 12:52 PM MRN: [id number] Procedure Date: ? 03/29/2017 12:52:56 PM Scope Withdrawal Time: 0 hours 7 minutes 45 seconds Total Procedure Duration: 0 hours 17 minutes 46 seconds Estimated Blood Loss: ? Scope In: 2:06:33 PM Scope Out: 2:24:19 PM RADIOLOGY RESULTS 03/29/2017 12:5 2 PM MAILING SECTION CLERK Pilo Cameron PROCEDURES RADIOLOGY RESULTS from Last 3 Months or Most Recently Relevant to Health Maintenance Advance Directives For more information, please contact: [phone] * Full Code (Latest Code Status on File) Date Activated Date Inactivated Comments 01/24/2013 7:26 PM 01/30/2013 9:10 PM * Full Code Date Activated Date Inactivated Comments 08/14/2012 6:44 PM 08/16/2012 3:20 PM * Full Code Date Activated Date Inactivated Comments 08/14/2012 5:40 PM 08/14/2012 6:44 PM Care Teams Nitric Acid Concentrator Operator Relationship Specialty Start Date End Date Pilo Cameron [address] [address] PCP - General Family Practice 02/05/13 Weight, Kiran Valdes MD [address] [place] [address] Urology 10/13/14
--- OUTSIDE RECORDS SUMMARY | 2023-11-13 19:59 | XMS_ITS | Encounter Summary ---
Author Organization [facility] Address [address] [place] [address] Care Team Providers Care Ice Cream Vendor Name Role Phone Pilo Cameron Primary Care Provider + [phone] Elder Thorpe MD Unavailable Unavailable Weight, Kiran Valdes MD Unavailable Duyen Santoro Unavailable [phone] Encounter Details Date Type Department Care Team (Late st Contact Info) Description 07/28/2020 Documentation Only INTERFACED REPORT Unknown, Provider Social History Tobacco Use Types Packs/Day Years Used Date Smoking Tobacco: Former Cigarettes 0.5 50 0 10/22/1962 - 10/22/2012 Smokeless Tobacco: Never Alcohol Use Standard Drinks/Week Comments Yes 0 (1 standard drink = 0.6 oz pur e alcohol) 4 beers daily PHQ-2 Answer Date Recorded PHQ-2 Score 0 05/07/2018 Sex and Gender Information Value Date Recorded Sex Assigned at Not on file Gender Identity Not on file Sexual Orientation Not on file documented as of this encounter Plan of Treatment Not on file documented as of this encounter Visit Diagnoses Not on filedocumented in this encounter Care Teams Ice Cream Vendor Relationship Specialty Start Date End Date Pilo Cameron [place] [address] [employer] [place], [place] [id number] PCP - General Family Practice 02/05/13 Elder Thorpe MD [address] [address] Referring Physician Oncology 10/13/14 08/04/20 Weight, Kiran Valdes MD [address] [place], [place] [address] Urology 10/13/14 Duyen Santoro PA 9 [facility] [place], [place] [address] Assigned Surgical Provider 02/20/21 08/11/22 documented as of this encounter
--- OUTSIDE RECORDS SUMMARY | 2023-11-13 19:59 | XMS_ITS | Encounter Summary ---
Author Organization [facility] Address [address] [place] [address] Care Team Providers Care Email Designer Name Role Phone [facility], [place] Primary Care Provider Pilo Cameron Primary Care Provider [phone] Kristel Hull RN Unavailable Unavailable Elder Thorpe MD Unavailable Unavailable Weight, Kiran Valdes MD Unavailable Maggy Lindsey RN Unavailable Eliecer Aceves RN Unavailable [phone] Elder Thorpe MD Unavailable Unavailable Elder Thorpe MD Unavailable Unavailable Duyen Santoro Unavailable [phone] Encounter Details Date Type Department Care Team (Late st Contact Info) Description 09/19/2012 External Order Results [address] [place] [id number] Abstract, Provider Social History Tobacco Use Types Packs/Day Years Used Date Smoking Tobacco: Every Day Cigarettes 0.5 50 Smokeless Tobacco: Never Alcohol Use Standard Drinks/Week Comments Yes 0 (1 standard drink = 0.6 oz pur e alcohol) 4 beers daily Sex and Gender Information Value Date Recorded Sex Assigned at Not on file Gender Identity Not on file Sexual Orientation Not on file documented as of this encounter Plan of Treatment Not on file documented as of this encounter Procedures Procedure Name Priority Date/Time Associated Diagnosis Comments COLONOSCOPY Routine 08/22/2012 documented in this encounter Results * COLONOSCOPY (08/22/2012) Provider Abstract PROCEDURES documented in this encounter Visit Diagnoses Not on filedocumented in this encounter Care Teams Email Designer Relationship Specialty Start Date End Date [facility], [facility] [address] [place] [address] PCP - General 01/24/13 02/04/13 Pilo Cameron [facility] [address] [place] [id number] PCP - General Family Practice 02/05/13 Elder Thorpe MD NO INFO AVAILABLE 03/13/2022 PCP - Assigned PCP 03/29/14 06/25/18 Kristel Hull RN [employer] F[employer] Tool Operator 10/09/14 11/09/15 Elder Thorpe MD Referring Physician Oncology 10/13/14 08/04/20 Kiran Lee MD [address] [place] [id number] Urology 10/13/14 Maggy Lindsey, RN Registered Nurse 11/10/15 03/28/17 Eliecer Aceves, RN Registered Nurse 03/29/17 06/19/18 Elder Thorpe MD NO INFO AVAILABLE 03/13/2022 Assigned PCP 03/29/14 11/09/18 Duyen Santoro PA 9 [facility] [place] [address] Assigned Surgical Provider 02/20/21 08/11/22 documented as of this encounter
--- OUTSIDE RECORDS SUMMARY | 2023-11-13 19:59 | XMS_ITS | Encounter Summary ---
Author Organization [facility] Address [address] [place] [address] Care Team Providers Care Seconds Grader Name Role Phone [facility], Lupillo Colby Primary Care Provider Pilo Cameron Primary Care Provider [phone] Kristel Hull RN Unavailable Unavailable Elder Thrope MD Unavailable Unavailable Weight, Kiran Valdes MD Unavailable Maggy Lindsey RN Unavailable [phone] Eliecer Aceves RN Unavailable [phone] Elder Thorpe MD Unavailable Unavailable Elder Thorpe MD Unavailable Unavailable Duyen Santoro Unavailable Encounter Details Date Type Department Care Team (Late st Contact Info) Description 09/24/2012 External Order Results [address] [place] [id number] Abstract, Provider Social History Tobacco Use Types [...] Procedure Name Priority Date/Time Associated Diagnosis Comments [facility] HEARING SCREENING Routine 09/24/2012 documented in this encounter Results * HEARING SCREENING (09/24/2012) Provider Abstract PROCEDURES documented in this encounter Visit Diagnoses Not on filedocumented in this encounter Care Teams Seconds Grader Relationship Specialty Start Date End Date Clinic, [facility] [address] [place], [place] [id number] PCP - General 01/24/13 02/04/13 Pilo Cameron [facility] [address] [place] [address] PCP - General Family Practice 02/05/13 Elder Thorpe MD NO INFO AVAILABLE 03/13/2022 PCP - Assigned PCP 03/29/14 06/25/18 Kristel Hull RN Continuity Burling And Joining Supervisor 10/09/14 11/09/15 Elder Thorpe MD Referring Physician Oncology 10/13/14 08/04/20 Kiran Lee MD [address] [place], [place] [id number] Urology 10/13/14 Maggy Lindsey, RN Registered Nurse 11/10/15 03/28/17 Eliecer Acevse, RN Registered Nurse 03/29/17 06/19/18 Elder Thorpe MD NO INFO AVAILABLE 03/13/2022 Assigned PCP 03/29/14 11/09/18 Duyen Santoro PA [address] [place] [address] Urology [place], [place] [address] Assigned Surgical Provider 02/20/21 08/11/22 documented as of this encounter
--- OUTSIDE RECORDS SUMMARY | 2023-11-13 19:59 | XMS_ITS | Encounter Summary ---
Author Organization [facility] Address [address] [place] [address]. [place] [address] Care Team Providers Care Guest Service Supervisor Name Role Phone Pilo Cameron Primary Care Provider [phone] Kristel Hull RN Unavailable Unavailable Elder Thorpe MD Unavailable Unavailable Weight, Kiran Valdes MD Unavailable [phone] Maggy Lindsey RN Unavailable [phone] Eliecer Aceves RN Unavailable [phone] Elder Thorpe MD Unavailable Unavailable Elder Thorpe MD Unavailable Unavailable Duyen Santoro Unavailable Encounter Details Date Type Department Care Team (Late st Contact Info) Description 09/26/2013 External Order Results [facility] [place] [address], [address] [facility] [place] [id number] Shaista Farr MD [address] [place] [address] Social History Tobacco Use Types Packs/Day Years [...] on filedocumented in this encounter Care Teams Guest Service Supervisor Relationship Specialty Start Date End Date Pilo Cameron [address] [place] [address] PCP - General Family Practice 02/05/13 Elder Thorpe MD NO INFO AVAILABLE 03/13/2022 PCP - Assigned PCP 03/29/14 06/25/18 Kristel Hull RN Continuity Cut Out Worker 10/09/14 11/09/15 Elder Thorpe MD Referring Physician Oncology 10/13/14 08/04/20 Jesus, Kiran Valdes MD [address] [place] [id number] Urology 10/13/14 Maggy Lindsey, RN Registered Nurse 11/10/15 03/28/17 Eliecer Aceves, RN Registered Nurse 03/29/17 06/19/18 Elder Thorpe MD NO INFO AVAILABLE 03/13/2022 Assigned PCP 03/29/14 11/09/18 Duyen Santoro PA [address] [facility] Urology [place], [place] [id number] Assigned Surgical Provider 02/20/21 08/11/22 documented as of this encounter
--- OUTSIDE RECORDS SUMMARY | 2023-11-13 19:59 | XMS_ITS | Encounter Summary ---
Author Organization [facility] Address [address] [place] [address]. [place] [address] Care Team Providers Care Cheese Pancake Roller Name Role Phone [facility], Lupillo Sapphire Primary Care Provider Pilo Cameron Primary Care Provider [phone] Kristel Hull RN Unavailable Unavailable Elder Thorpe MD Unavailable Unavailable Weight, Kiran Valdes MD Unavailable Maggy Linsdey RN Unavailable Eliecer Aceves RN Unavailable Elder Thorpe MD Unavailable Unavailable Elder Thorpe MD Unavailable Unavailable Duyen Santoro Unavailable Reason for Visit * Reason Onset Date Comments Other 09/12/2012 Encounter Details Date Type Department Care Team ([facility] st Contact Info) Description 09/12/2012 Telephone [id number] [facility] [address] [place] [id number] Chris Armstrong MD [address] [place] [address] Other Social History Tobacco Use Types Packs/Day Years [...] on file documented as of this encounter Miscellaneous Notes * Telephone Encounter - Chris Armstrong MD - 09/24/2012 12:48 PM CDT hes done with is colo * Telephone Encounter - Erika España RN - 09/23/2012 11:00 AM CDT This is [facility] patient. Message routed to Jolene Retana RN. * Telephone Encounter - Noreen Salinas RN - 09/12/2012 12:57 PM CDT Will route to Dr. Armstrong. * Telephone Encounter - Nicole Rocha - 09/12/2012 12:[address] Grewal called to say that the Colonoscopy might not get done as soon as she would like would like to talk to her about that.[phone] documented in this encounter Plan of Treatment Not on file documented as of this encounter Visit Diagnoses Not on filedocumented in this encounter Care Teams Cheese Pancake Roller Relationship Specialty Start Date End Date [facility], [facility] [address] [place] [address] PCP - General 01/24/13 02/04/13 Pilo Cameron [address] [address] PCP - General Family Practice 02/05/13 Elder Thorpe MD NO INFO AVAILABLE 03/13/2022 PCP - Assigned PCP 03/29/14 06/25/18 Kristel Hull, RN Continuity Reservations Agent 10/09/14 11/09/15 Elder Thorpe MD Referring Physician Oncology 10/13/14 08/04/20 Jesus, Kiran Valdes MD [address] [place] [address] Urology 10/13/14 Maggy Lindsey, RN Registered Nurse 11/10/15 03/28/17 Eliecer Aceves, RN Registered Nurse 03/29/17 06/19/18 Elder Thorpe MD NO INFO AVAILABLE 03/13/2022 Assigned PCP 03/29/14 11/09/18 Duyen Santoro PA [address] [facility] Urology [place], [place] [address] Assigned Surgical Provider 02/20/21 08/11/22 documented as of this encounter
--- OUTSIDE RECORDS SUMMARY | 2023-11-13 19:59 | XMS_ITS | Clinical Summary ---
Author Organization [facility] Address [place], [place] [address] Care Team Providers Care Journeyman Press Operator Name Role Phone Sara Laureano PA-C Primary Care Provider [phone] Allergies Active Allergy Reactions Criticality Noted Date Comments Cyclobenzaprine *Unknown 08/30/2023 Menthol Rash Low 08/12/2012 Topical Medications Medication Sig Dispensed Refills Start Date End Date Status cyanocobalamin, vitamin B-12, (VITAMIN B-12 ORAL) Take 1 Tablet by mouth once daily if needed (when remembers). Active amiodarone (CORDARONE) 200 mg tabletIndications: Atrial flutter with rapid ventricular response (HC),HFrEF (heart failure with reduced ejection fraction) (HC) Take 1 Tablet (200 mg) by mouth once daily. 180 Tablet 09/25/2023 Active metoprolol succinate (TOPROL XL) 50 mg sustained-release tabletIndications: Persistent atrial fibrillation (HC),Essential hypertension,Chron ic systolic heart failure (HC) Take 1 Tablet (50 mg) by mouth once daily. 90 Tablet 1 10/22/2023 Active sacubitril-valsart an (ENTRESTO) 24-26 mg tabletIndications: HFrEF (heart failure with reduced ejection fraction) (HC) Take 1 Tablet by mouth two times daily. 180 Tablet 1 10/22/2023 Active spironolactone (ALDACTONE) 25 mg tabletIndications: HFrEF (heart failure with reduced ejection fraction) (HC) Take 0.5 Tablets (12.5 mg) by mouth once daily in the morning. 45 Tablet 1 10/22/2023 Active apixaban (Eliquis) 5 mg tabletIndications: Atrial flutter with rapid ventricular response (HC) Take 1 Tablet (5 mg) by mouth two times daily. 180 Tablet 1 10/22/2023 Active metoprolol succinate (TOPROL XL) 50 mg sustained-release tabletIndications: Persistent atrial fibrillation (HC),Essential hypertension,Chron ic systolic heart failure (HC) Take 1 Tablet (50 mg) by mouth once daily. 90 Tablet 09/13/2023 10/22/2023 Discontinued (Reorder (E-cancel not sent)) apixaban (Eliquis) 5 mg tabletIndications: Atrial flutter with rapid ventricular response (HC) Take 1 Tablet (5 mg) by mouth two times daily. 60 Tablet 2 09/25/2023 10/22/2023 Discontinued (Reorder (E-cancel not sent)) spironolactone (ALDACTONE) 25 mg tabletIndications: HFrEF (heart failure with reduced ejection fraction) (HC) Take 0.5 Tablets (12.5 mg) by mouth once daily in the morning. 30 Tablet 09/25/2023 10/22/2023 Discontinued (Reorder (E-cancel not sent)) sacubitril-valsart an (ENTRESTO) 24-26 mg tabletIndications: HFrEF (heart failure with reduced ejection fraction) (HC) Take 1 Tablet by mouth two times daily. 60 Tablet 09/25/2023 10/22/2023 Discontinued (Reorder (E-cancel not sent)) Active Problems Problem Noted Date Diagnosed Date Atrial fibrillation with RVR 08/30/2023 HFrEF (heart failure with reduced ejection fract ion) 08/30/2023 History of bladder cancer 08/30/2023 Encounters Date Type Department Care Team Description 10/22/2023 Telephone [facility] [address] [facility] [address] [phone] Arturo Acosta MD Refill Request 10/04/2023 3:00 PM CDT Office Visit [facility] [address] [place] [address] Arturo Acosta MD 10/01/2023 Telephone [facility] [address] [phone] Cordell Aceves MD Refill Request 09/24/2023 Telephone [facility] [address] [phone] Cordell Aceves MD Medication Management 09/20/2023 Orders Only [address] Castillo [address] [place] [address] Maria Del Carmen Jacobson 1 scan: (1-Ord) ekg 09/13/2023 3:00 PM CDT Office Visit [address] Castillo [address] [place] [address] Cordell Aceves MD Consult (Initial consult , STAT referral for Afib w/ RVR in hospital , ) 09/13/2023 Telephone [facility] [address] [phone] Cordell Aceves MD Medication Management (Test Claim Dronedarone) 09/07/2023 Orders Only [facility] [address] [place] [address] Paty Jimenes 1 scan: (1-Ord) Final 09/05/2023 12:38 PM CDT - 09/05/2023 4:43 PM CDT Emergency [facility] [address] [place] [address] aHyes Ramirez MD Urinary tract infection without hematuria, site unspecified (Primary Dx); Flank pain Discharge Disposition: Home Self Care 09/05/2023 Travel 08/31/2023 3:17 PM CDT Anesthesia Event [facility] [address] [place] [address] Charly Bo MD 08/30/2023 1:19 PM CDT - 09/02/2023 1:15 PM CDT Hospital Encounter [facility] [address] [place] [address] Lucio Dillard MD Awnuur-Ibrahim, Hodan, RN [facility], [facility] Of Brent Rios MD Residents, [address], MD Arvind Marrero Samantha K, MD Atrial flutter with rapid ventricular response (HC) (Primary Dx); HFrEF (heart failure with reduced ejection fraction) (HC); Shortness of breath; On apixaban therapy; Elevated blood pressure reading; Hypoxia; Atrial fibrillation with RVR (HC); History of cardioversion Discharge Disposition: Home Self Care 08/30/2023 10:30 AM CDT Office Visit [facility] [address] [address] Rios Flood MD 08/30/2023 Travel 08/30/2023 [facility] [address] [place] [address] [address] [place] [address] Rios Flood MD Health Maintenance Update 08/27/2023 Orders Only [facility] Scanner 1 scan: (1-Ord) FEMIStarr AMRIKO XT FINAL REPORT, 08/27/2023 from Last 3 Months Family History Medical History Relation Name Comments Arrhythmia Daughter Hypertension Father Relation Name Status Comments Daughter Alive Father Mother Son 1 Alive Son 2 Alive Social History Tobacco Use Types Packs/Day Years Used Date Smoking Tobacco: Former Cigarettes Smokeless Tobacco: Never Tobacco Cessation:Counseling Given: Not Answered Alcohol Use Standard Drinks/Week Comments Not Currently 0 (1 standard drink = 0.6 oz pur e alcohol) None currently Social Connections Answer Date Recorded Frequency of Communication with Friends and Fami ly 0 08/30/2023 Financial Resource Strain Answer Date R ecorded Difficulty of Paying Living Expenses 3 08/31/2023 Difficulty of Paying Living Expenses Not on file 08/31/2023 Food Insecurity Answer Date Recorded Worried About Running Out of Food in the Last Ye ar 1 08/30/2023 Transportation Needs Answer Date Record ed Lack of Transportation (Medical) 1 08/30/2023 Housing Stability Answer Date Recorded Unable to Pay for Housing in the Last Year 1 08/30/2023 Sex and Gender Information Value Date Recorded Sex Assigned at Not on file Gender Identity Not on file Sexual Orientation Not on file Obstetrics History Last Filed Vital Signs Vital Sign Reading Time Taken Comments Blood Pressure 138/80 09/13/2023 2:52 PM CDT Pulse 49 09/13/2023 2:52 PM CDT Temperature 36.4 ??C (97.6 ??F) 09/05/2023 12:30 PM C DT Respiratory Rate 18 09/05/2023 3:30 PM CDT Oxygen Saturation 96% 09/13/2023 2:52 PM CDT Inhaled Oxygen Concentration - - Weight 81.6 kg (180 lb) 09/13/2023 2:52 PM CDT Height 170.2 cm (5' 7) 09/13/2023 2:52 PM CDT Body Mass Index 28.19 09/13/2023 2:52 PM CDT Plan of Treatment Upcoming Encounters Date Type Department Care Team (Late st Contact Info) Description 11/21/2023 1:00 PM CDT Orders Only [address] Castillo [address] [place] [phone] 11/21/2023 2:00 PM CDT Office Visit [address] Castillo [address] [place] [address] Faye Vasquez PA [address] [facility] [address] [place] [address] Health Maintenance Due Date Last Done Comments Pneumococcal series for age 65+ (1 of 2 - PCV) 1948 Tdap 1953 Depression screening for age 12+ 1954 Tetanus booster 1962 Zoster (shingles) series for age 50+ (1 of 2) 1992 Medicare Wellness for age 65+ 10/14/2007 COVID-19 vaccine series ( season) 2022 03/23/2021, 07/27/2020, 06/30/2020 Influenza for age 65+ 12/23/2023 BMI (ht and wt on same day) for age 18+ 09/12/2024 09/13/2023 Procedures Procedure Name Priority Date/Time Associated Diagnosis Comments EKG 12 LEAD Routine 09/20/2023 Persistent atrial fibrillation (HC) Essential hypertension Chronic systolic heart failure (HC) EKG 12 LEAD Routine 09/13/2023 Persistent atrial fibrillation (HC) EXTENDED HOLTER Routine 09/07/2023 Other persistent atrial fibrillation (HC) TROPONIN T (HS) ONE TIME Timed 09/05/2023 3:22 PM CDT CTA CHEST ABDOMEN PELVIS AORTIC DISSECTION W STAT 09/05/2023 2:22 PM CDT URINALYSIS MICROSCOPIC STAT 09/05/2023 1:43 PM CDT UA W/ SEDIMENT EXAM REFLEXED PER CRITERIA STAT 09/05/2023 1:43 PM CDT CBC WITH AUTO DIFFERENTIAL STAT 09/05/2023 12:56 PM CDT CBC WITH AUTO DIFFERENTIAL STAT 09/05/2023 12:56 PM CDT EXTRA TUBE BLUE Today 09/05/2023 12:55 PM CDT PRO-BNP MATTHEW 09/05/2023 12:55 PM CDT BASIC METABOLIC PANEL STAT 09/05/2023 12:55 PM CDT TROPONIN T (HS) ACUTE W/2HR REFLEX STAT 09/05/2023 12:55 PM CDT EKG 12 LEAD STAT 09/05/2023 12:[address] CARDIAC CORONARY ARTERIES DUAL READ Routine 09/02/2023 9:04 AM CDT POTASSIUM Timed 09/01/2023 8:21 PM CDT SCAN-CARDIAC STRIP 09/01/2023 7: 50 PM CDT EKG 12 LEAD Routine 09/01/2023 10:36 AM CDT SCAN-CARDIAC STRIP 09/01/2023 7: 24 AM CDT CREATININE Early AM 09/01/2023 6:12 AM CDT POTASSIUM Early AM 09/01/2023 6:12 AM CDT MAGNESIUM Early AM 09/01/2023 6:12 AM CDT SCAN-CARDIAC STRIP 08/31/2023 8: 10 PM CDT SCAN-CARDIAC STRIP 08/31/2023 5: 30 PM CDT ECHO KAMAR WO CONTRAST W COLOR W LTD DOPPLER Routine 08/31/2023 3:35 PM CDT EP OTHER PROCEDURE Routine 08/31/2023 3: 30 PM CDT EKG 12 LEAD Routine 08/31/2023 3:17 PM CDT Persistent atrial fibrillation (HC) SCAN-CARDIAC STRIP 08/31/2023 10 :44 AM CDT SCAN-CARDIAC STRIP 08/31/2023 10 :44 AM CDT HEPATIC FUNCTION PANEL MATTHEW 08/31/2023 6:40 AM CDT MAGNESIUM Early AM 08/31/2023 6:40 AM CDT CREATININE Early AM 08/31/2023 6:40 AM CDT ELECTROLYTE PANEL Early AM 08/31/2023 6:4 0 AM CDT SCAN-CARDIAC STRIP 08/30/2023 5: 21 PM CDT POTASSIUM STAT 08/30/2023 3:08 PM CDT XR CHEST 2 VIEWS PA AND LATERAL STAT 08/30/2023 2:18 PM CDT PRO-BNP MATTHEW 08/30/2023 1:46 PM CDT CBC W PLT NO DIFF STAT 08/30/2023 1:4 6 PM CDT TSH STAT 08/30/2023 1:46 PM CDT MAGNESIUM STAT 08/30/2023 1:46 PM CDT BASIC METABOLIC PANEL STAT 08/30/2023 1:46 PM CDT EKG 12 LEAD STAT 08/30/2023 1:17 PM CDT SCAN-CARDIAC STRIP 08/30/2023 12 :00 AM CDT SCAN-EVENT MONITOR 08/27/2023 12 :00 AM CDT from Last 3 Months Results * EKG 12 LEAD (09/20/2023) Only the most recent of6 resultswithin the time period is included. Cordell Aceves MD EKG ORD * EXTENDED HOLTER (09/07/2023) Paty Jimenes [facility] ORD * TROPONIN T (HS) ONE TIME (09/05/2023 3:22 PM CDT) TROPONIN T HS 14 6-15 ng/L ng/L 09/05/2023 4:31 PM CDT [facility] Blood BLOOD SPECIMEN / Unknown Venipuncture / Unknown 09/05/2023 3:22 PM CDT 09/05/2023 3:52 PM CDT Anw Ed T[facility] [address] [place] [id number], * CTA CHEST ABDOMEN PELVIS AORTIC DISSECTION W (09/05/2023 2:22 PM CDT) Anatomical Region Laterality Modality CHEST, Abdomen, Pelvis, AORTA, THORAX, HEART Computed Tomography 09/05/2023 3:06 PM CDT Impressions 09/05/2023 3:06 PM CDT 1. No evidence of acute aortic syndrome (aortic dissection, intramural hematoma or penetrating atherosclerotic ulcer) to explain the patient`s symptoms. 2. Diffuse atherosclerotic disease of the aorta and its branches in the chest, abdomen and pelvis including mild to moderate stenosis of the proximal left subclavian artery just beyond its origin associated with an ulcerated noncalcified atherosclerotic plaque, a small infrarenal abdominal aortic ulcerated atherosclerotic plaque or small penetrating ulcer (described in detail above) and moderate stenosis of the proximal SMA due to noncalcified atherosclerotic plaque. 3. Incidental findings described above including chronic obstructive airways disease and moderate emphysema. Please note that all CT scans at this facility use dose modulation, iterative reconstruction, and/or weight-based dosing when appropriate to reduce radiation dose to as low as reasonably achievable. Dictated by Arturo Mclean MD @ 09/05/2023 3:06:36 PM (Electronically Signed) Narrative 09/05/2023 3:06 PM CDT For Patients: ??As a result of the Century Cures Act, medical imaging exams and procedure reports are released immediately into your electronic medical record. ??You may view this report before your referring provider. ??If you have questions, please contact your health care provider. INDICATION: Severe mid back pain. COMPARISON: None available. TECHNIQUE: CT of the chest prior to and following IV contrast administration, with post contrast imaging of the abdomen and pelvis following administration of 100 cc of Omnipaque 350 intravenous contrast. ?? Please note that all CT scans at this facility use dose modulation, iterative reconstruction, and/or weight-based dosing when appropriate to reduce radiation dose to as low as reasonably achievable. FINDINGS: CHEST Thoracic Aorta: No aneurysm, intramural hematoma, penetrating atherosclerotic ulcer, or dissection. [id number] stenosis of the proximal left subclavian artery is noted, measuring on the order of 45 percent. Narrowing is due to an ulcerated noncalcified atherosclerotic plaque (series 606; image 69). Visualized Lower Neck: No lower cervical adenopathy. Mediastinum: Thoracic aorta and pulmonary trunk are normal in caliber. Cardiomegaly. Trachea and esophagus are normal in appearance. There is no mediastinal lymphadenopathy. Lungs and Pleura: Increased lung volumes consistent with chronic obstructive airways disease. Moderate emphysema. Bibasilar pleural-based band opacities consistent with nonspecific fibrosis. No pleural effusion. No pneumothorax. ABDOMEN NB: Timing of imaging relative to contrast bolus administration limits assessment of the abdominopelvic viscera and venous vasculature on this arterial phase CT angiogram. Abdominal Aorta: No aneurysm, intramural hematoma or dissection. Ulcerated atherosclerotic plaque or small incidental penetrating atherosclerotic ulcer of the left lateral infra-abdominal aorta (series 6; image 311) measuring 5 mm in depth and 10 mm in craniocaudad length (606; 62). Caliber of the abdominal aorta at this level is 2.4 cm (transverse on series 6; image 310). Otherwise, there is moderate diffuse calcified and noncalcified atherosclerotic mural plaque of the abdominal aorta and its branches. Moderate stenosis on the order of 60 percent is noted involving the proximal SMA (6; 251). Liver: Normal hepatic attenuation. ??No suspicious focal hepatic lesion. No intrahepatic biliary ductal dilatation. Gallbladder: Normal gallbladder size. Normal common duct caliber. No pericholecystic inflammatory changes. Pancreas: Normal pancreatic attenuation. No focal lesion. Normal duct caliber. No peripancreatic inflammatory changes. Spleen: Normal splenic attenuation. No suspicious focal lesion. Adrenal Glands: Symmetrical adrenal glands. No focal lesion of significance. Kidneys: Normal bilateral renal attenuation. No suspicious focal lesion. No obstructing nephrolith or dilatation of the upper urinary tracts. Right lower quadrant ileal conduit. Gastrointestinal tract: No acute findings. 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 Sigmoid diverticulosis without associated inflammatory changes. Normal mesentery. Vascular: Limited assessment of the venous vasculature on this arterial phase CT angiogram. Additional findings: No incidental adenopathy. No significant ascites, free fluid or pneumoperitoneum. PELVIS Cystoprostatectomy. No abnormal free fluid. No incidental adenopathy. SKELETON AND BODY WALL No acute or suspicious incidental findings. Procedure Note Arturo Mclean MD - 09/05/2023 For Patients: As a result of the Cures Act, medical imagingexams and procedure reports are released immediately into your electronicmedical record. You may view this report before your referring provider.If you have questions, please contact your health care provider. INDICATION: Severe mid back pain. COMPARISON: None available. TECHNIQUE: CT of the chest prior to and following IV contrast administration, withpost contrast imaging of the abdomen and pelvis following administrationof 100 cc of Omnipaque 350 intravenous contrast. Please note that all CTscans at this facility use dose modulation, iterative reconstruction,and/or weight-based dosing when appropriate to reduce radiation dose to aslow as reasonably achievable. FINDINGS: CHEST Thoracic Aorta: No aneurysm, intramural hematoma, penetratingatherosclerotic ulcer, or dissection. Nque-fa-frlmezgn stenosis of theproximal left subclavian artery is noted, measuring on the order of 45percent. Narrowing is due to an ulcerated noncalcified atheroscleroticplaque (series 606; image 69). Visualized Lower Neck: No lower cervical adenopathy. Mediastinum: Thoracic aorta and pulmonary trunk are normal in caliber.Cardiomegaly. Trachea and esophagus are normal in appearance. There is nomediastinal lymphadenopathy. Lungs and Pleura: Increased lung volumes consistent with chronicobstructive airways disease. Moderate emphysema. Bibasilar pleural-basedband opacities consistent with nonspecific fibrosis. No pleural effusion.No pneumothorax. ABDOMEN NB: Timing of imaging relative to contrast bolus administration limitsassessment of the abdominopelvic viscera and venous vasculature on thisarterial phase CT angiogram. Abdominal Aorta: No aneurysm, intramural hematoma or dissection. Ulceratedatherosclerotic plaque or small incidental penetrating atheroscleroticulcer of the left lateral infra-abdominal aorta (series 6; image 311)measuring 5 mm in depth and 10 mm in craniocaudad length (606; 62).Caliber of the abdominal aorta at this level is 2.4 cm (transverse onseries 6; image 310). Otherwise, there is moderate diffuse calcified and noncalcifiedatherosclerotic mural plaque of the abdominal aorta and its branches.Moderate stenosis on the order of 60 percent is noted involving theproximal SMA (6; 251). Liver: Normal hepatic attenuation. No suspicious focal hepatic lesion. Nointrahepatic biliary ductal dilatation. Gallbladder: Normal gallbladder size. Normal common duct caliber. Nopericholecystic inflammatory changes. Pancreas: Normal pancreatic attenuation. No focal lesion. Normal ductcaliber. No peripancreatic inflammatory changes. Spleen: Normal splenic attenuation. No suspicious focal lesion. Adrenal Glands: Symmetrical adrenal glands. No focal lesion ofsignificance. Kidneys: Normal bilateral renal attenuation. No suspicious focal lesion.No obstructing nephrolith or dilatation of the upper urinary tracts. Rightlower quadrant ileal conduit. Gastrointestinal tract: No acute findings. Dilatation of the small bowelat the enteroenteric anastomosis in this patient who is status post ilealconduit urinary diversion is consistent with a surgical blind pouch.Sigmoid diverticulosis without associated inflammatory changes. Normalmesentery. Vascular: Limited assessment of the venous vasculature on this arterialphase CT angiogram. Additional findings: No incidental adenopathy. No significant ascites,free fluid or pneumoperitoneum. PELVIS Cystoprostatectomy. No abnormal free fluid. No incidental adenopathy. SKELETON AND BODY WALL No acute or suspicious incidental findings. IMPRESSION: 1. No evidence of acute aortic syndrome (aortic dissection, intramuralhematoma or penetrating atherosclerotic ulcer) to explain the patient`ssymptoms. 2. Diffuse atherosclerotic disease of the aorta and its branches in thechest, abdomen and pelvis including mild to moderate stenosis of theproximal left subclavian artery just beyond its origin associated with anulcerated noncalcified atherosclerotic plaque, a small infrarenalabdominal aortic ulcerated atherosclerotic plaque or small penetratingulcer (described in detail above) and moderate stenosis of the proximalSMA due to noncalcified atherosclerotic plaque. 3. Incidental findings described above including chronic obstructiveairways disease and moderate emphysema. Please note that all CT scans at this facility use dose modulation,iterative reconstruction, and/or weight-based dosing when appropriate toreduce radiation dose to as low as reasonably achievable. Dictated by Arturo Mclean MD @ 09/05/2023 3:06:36 PM (Electronically Signed) Hayes Ramirez MD CT * (ABNORMAL) URINALYSIS MICROSCOPIC (09/05/2023 1:43 PM CDT) RBC 03-17(A) 0-2, None Seen /HPF 09/05/2023 2:56 PM CDT [facility] WBC 11-25(A) 0-2, 3-5, None Seen /HPF 09/05/2023 2:56 PM CDT [facility] BACTERIA Many(A) None Seen, Rare, Few Bacteria/ HPF 09/05/2023 2:56 PM CDT [facility] EPITHELIAL CELLS None Seen None Seen, Few Epi/HPF 09/05/2023 2:56 PM CDT [facility] HYALINE CASTS 3-5 0-2, 3-5 /LPF 09/05/2023 2:56 PM CDT [facility] Urine URINE SPECIMEN / Unknown Non-Blood / Unknown 09/05/2023 1:43 PM CDT 09/05/2023 1:52 PM CDT Hayes Ramirez MD URINE [facility] [address] [place] [address], [place] * (ABNORMAL) URINALYSIS W REFLEX MICROSCOPIC IF POSITIVE (09/05/2023 1:43 PM CDT) COLOR Yellow Yellow Color 09/05/2023 2:56 PM CDT [facility] CLARITY Clear Clear Clarity 09/05/2023 2:56 PM CDT [facility] SPECIFIC GRAVITY,URINE 1.010 1.010, 1.015, 1.020, 1.025 09/05/2023 2:56 PM CDT [facility] PH,URINE 6.5 6.0, 7.0, 8.0, 5.5, 6.5, 7.5, 8.5 09/05/2023 2:56 PM CDT [facility] UROBILINOGEN, QUALITATIVE Normal Normal EU/dl 09/05/2023 2:56 PM CDT [facility] PROTEIN, URINE Negative Negative mg/dL 09/05/2023 2:56 PM CDT [facility] GLUCOSE, URINE Negative Negative mg/dL 09/05/2023 2:56 PM CDT [facility] KETONES,URINE Negative Negative mg/dL 09/05/2023 2:56 PM CDT [facility] BILIRUBIN,URI NE Negative Negative 09/05/2023 2:56 PM CDT [facility] OCCULT BLOOD,URINE Moderate(A) Negative 09/05/2023 2:56 PM CDT [facility] NITRITE Positive(A) Negative 09/05/2023 2:56 PM CDT [facility] LEUKOCYTE ESTERASE Moderate(A) Negative 09/05/2023 2:56 PM CDT [facility] Urine URINE SPECIMEN / Unknown Non-Blood / Unknown 09/05/2023 1:43 PM CDT 09/05/2023 1:52 PM CDT Hayes Ramirez MD URINE [facility] [address] [place] [address], [place] * CBC WITH AUTO DIFFERENTIAL (09/05/2023 12:56 PM CDT) WHITE BLOOD COUNT 8.7 4.5 - 11.0 thou/cu mm 09/05/2023 1:20 PM CDT [facility] RED BLOOD COUNT 5.46 4.30 - 5.90 mil/cu mm 09/05/2023 1:20 PM CDT [facility] HEMOGLOBIN 17.0 13.5 - 17.5 g/dL 09/05/2023 1:20 PM CDT [facility] HEMATOCRIT 49.7 37.0 - 53.0 % 09/05/2023 1:20 PM CDT [facility] MCV 91 80 - 100 fL 09/05/2023 1:20 PM CDT [facility] MCH 31.1 26.0 - 34.0 pg 09/05/2023 1:20 PM CDT [facility] MCHC 34.2 32.0 - 36.0 g/dL 09/05/2023 1:20 PM CDT [facility] RDW 13.2 11.5 - 15.5 % 09/05/2023 1:20 PM [facility] PLATELET COUNT 276 140 - 440 thou/cu mm 09/05/2023 1:20 PM [facility] MPV 10.0 6.5 - 11.0 fL 09/05/2023 1:20 PM [facility] NRBC 0.0 % 09/05/2023 [facility] ABS NRBC 0.0 thou /cu mm 09/05/2023 1:20 PM T [facility] TRAL LABORATORY % NEUT 69.5 % 09/05/2023 1:20 PM [facility] % LYMPH 19.5 % 09/05/2023 1:20 PM [facility] % MONO 8.2 % 09/05/2023 1:20 PM [facility] % EOS 1.8 % 09/05/2023 1:20 PM [facility] % BASO 0.5 % 09/05/2023 1:20 PM [facility] % IMMATURE GRAN (METAS,MYELOS,DE OS) 0.5 % 09/05/2023 1:20 PM CDT [facility] TRAL LABORATORY ABSOLUTE NEUTROPHILS 6.0 1.7 - 7.0 thou/cu mm 09/05/2023 1:20 PM [facility] ABSOLUTE LYMPHOCYTES 1.7 0.9 - 2.9 thou/cu mm 09/05/2023 1:20 PM T [facility] TRAL LABORATORY ABSOLUTE MONOCYTES 0.7 <0.9 thou/cu mm 09/05/2023 1:20 PM [facility] ABSOLUTE EOSINOPHILS 0.2 <0.5 thou/cu mm 09/05/2023 1:20 PM [facility] ABSOLUTE BASOPHILS 0.0 <0.3 thou/cu mm 09/05/2023 1:20 PM T [facility] TRAL LABORATORY ABSOLUTE IMMATURE GRANULOCYTES(MET ,MYELOS,PROS) 0.0 <0.3 thou/cu mm 09/05/2023 1:20 PM CDT [facility] TRAL LABORATORY Blood BLOOD SPECIMEN / Unknown Non-Lab Venipuncture / Unknown 09/05/2023 12:56 PM CDT 09/05/2023 1:06 PM CDT Anw Ed Triage [facility] [address] [place] [address], * (ABNORMAL) TROPONIN T (HS) ACUTE W/2HR REFLEX (09/05/2023 12:55 PM CDT) TROPONIN T HS 16(H) 6-15 ng/L ng/L 09/05/2023 1:47 PM CDT [facility] Blood BLOOD SPECIMEN / Unknown Butterfly / Unknown 09/05/2023 12:55 PM CDT 09/05/2023 1:06 PM CDT Narrative [facility] - 09/05/2023 1:47 PM CDT hs-cTnT (Elecsys Troponin T Gen 5) concentration (s) above the sex-specific 99th percentile (16 ng/L or greater for males or 11 ng/L or greater for females) are indicative of myocardial injury. If initial hs-cTnT <=100 ng/L at presentation, a 0h/2h ABSOLUTE (ng/L) delta change (rising or falling) of >=10 ng/L suggests a significant change, whereas a 0h/2h delta change <=3 ng/L suggests no significant change. If initial hs-cTnT >100 ng/L at presentation, a 0h/2h/ RELATIVE (percent, %) delta change of 20% is suggested to distinguish patients with acute vs. chronic myocardial injury. There are multiple etiologies that can cause hs-cTnT increases above the 99th percentile (myocardial injury) other than acute myocardial infarction. Clinical context and careful clinical evaluation are critical for diagnosis and risk-stratification. The diagnosis of acute myocardial infarction requires a rising and/or falling pattern in hs-cTnT concentrations with at least one value above the sex-specific 99th percentile PLUS at least one of the following clinical criteria: ischemic symptoms, new or presumed new significant ST-T wave changes or new LBBB, development of pathological Q waves, imaging evidence of new loss of viable myocardium or new regional wall motion abnormality, or identification of intracoronary atherothrombosis or an acute angiographic culprit on coronary angiography. In appropriate low-risk patients with a non-ischemic electrocardiogram without active chest pain with a symptom onset >3-hours without recurrence, a single initial hs-cTnT<6 ng/L identifies patient with a very low risk in emergency department patient population. Anw Ed Triage CHEMISTRY Performing Organization Address [facility] de Phone Number [facility] [employer] [address] [address], [place] * EXTRA TUBE BLUE (09/05/2023 12:55 PM CDT) Blood BLOOD SPECIMEN / Unknown Non-Lab Venipuncture / Unknown 09/05/2023 12:55 PM CDT 09/05/2023 1:07 PM CDT Doctor Unknown LABORATORY Performing Organization Address [facility] de Phone Number [facility] [employer] [address] [address], [place] * (ABNORMAL) PRO-BNP (09/05/2023 12:55 PM CDT) Only the most recent of2 resultswithin the time period is included. [facility] Signature PRO-BNP 838(H) <450 pg/mL 09/05/2023 1:48 PM CDT [facility] [employer] LABORAT[facility] Blood BLOOD SPECIMEN / Unknown Butterfly / Unknown 09/05/2023 12:55 PM CDT 09/05/2023 1:06 PM CDT Narrative [facility] [employer] - 09/05/2023 1:48 PM CDT The following cut-points have been suggested for the use of proBNP for the diagnostic evaluation of heart failure (HF) in patient with acute dyspnea. Patients with eGFR >= 60 Diagnosis (rule in CHF) ? <50 Years Old ?450 pg/mL 50 - 75 Years Old ?900 pg/mL >75 Years Old ? 1800 pg/mL Exclusion (rule out CHF) Age Independent ?300 pg/mL A cutoff of 1200 pg/mL for patients with an eGFR <60 yields a diagnostic sensitivity of 89% and specificity of 72% for acute congestive heart failure. ? Hayes Ramirez MD SEND OU TS [facility] LABORATORY [address] [place] [address], * (ABNORMAL) BASIC METABOLIC PANEL (09/05/2023 12:55 PM CDT) Only the most recent of2 resultswithin the time period is included. SODIUM 137 136 - 145 mmol/L 09/05/2023 1:48 PM CDT [facility] TRAL LABORATORY POTASSIUM 5.1 3.5 - 5.1 mmol/L 09/05/2023 1:48 PM CDT [facility] TRAL LABORATORY CHLORIDE 107 98 - 107 mmol/L 09/05/2023 1:48 PM CDT [facility] TRAL LABORATORY CO2,TOTAL 19(L) 22 - 29 mmol/L 09/05/2023 1:48 PM CDT [facility] TRAL LABORATORY ANION GAP 11 5 - 18 09/05/2023 1:48 PM CDT [facility] TRAL LABORATORY GLUCOSE 103(H) 70 - 99 mg/dL 09/05/2023 1:48 PM CDT [facility] TRAL LABORATORY CALCIUM 9.1 8.8 - 10.2 mg/dL 09/05/2023 1:48 PM CDT [facility] BUN 30(H) 8 - 23 mg/dL 09/05/2023 1:48 PM CDT [facility] CREATININE 1.17 0.70 - 1.20 mg/dL 09/05/2023 1:48 PM CDT [facility] TR[facility] BUN/CREAT RATIO 26(H) 10 - 20 1:48 PM CDT [facility] eGFR 63(L) >90 mL/min/1.7 3m2 09/05/2023 1:48 PM CDT [facility] Comment:As of 2021, eG FR is calculated by the CKD-EPI creatinine equation without race adjustment. ??eGFR can be influenced by muscle mass, exercise, and diet. ??The reported eGFR is an estimation only and is only applicable if the renal function is stable. Blood BLOOD SPECIMEN / Unknown Butterfly / Unknown 09/05/2023 12:55 PM CDT 09/05/2023 1:06 PM CDT Anw Ed Triage CHEMISTRY [facility]ORY[facility]AL LABORATORY [address] [place] [address], * CT CARDIAC CORONARY ARTERIES DUAL READ (09/02/2023 9:04 AM CDT) Anatomical Region Laterality Modality HEART Computed Tomogra phy 09/02/2023 9:06 AM CDT Narrative 09/03/2023 11:19 AM CDT ?[facility] ? Cardiac CT Report ??MRN: ? [id number] ?Name: ? ALIS MCGUIRE ?: ?1940- ?Scan Date: ?Accession Number: ? [id number] ?Status: ? Final ? Electronically signed by Mary Kate Liu 09:53:27 VITALS HEIGHT: 67 in ?(170 cm) WEIGHT: 173 lbs ?(78 kgs) BSA: 1.90 m^2 BMI: 27 kg/m^2 BP: 106 / 63 mmHg BASELINE HR: 54 BPM HEART RHYTHM: Normal Sinus Rhythm FINAL IMPRESSION 1. 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 2. Total coronary artery calcium score 137. TURNER percentile based on age, gender, and race is 29. No evidence of epicardial coronary artery disease to explain patient's symptoms/cardiomyopathy. Please see radiology section at end of report for noncardiac findings. RECOMMENDATIONS: Consider potential noncoronary causes of patient? s symptoms/cardiomyopathy. STUDY QUALITY: Study quality is good. CAD-RADS: CAD-RADS Classification 1 (<25% stenosis). CALCIUM SCORING: Total coronary artery calcium score 137. TURNER percentile based on age, gender, and race is 29. DOMINANCE: Right dominant coronary artery system. LM: The LM has calcified atherosclerosis. There is a <25% LM stenosis. LAD: The LAD is normal. D1: The first diagonal is normal. D2: The second diagonal is normal. D3: The third diagonal is normal. LCX: The LCx is normal. OM1: The first obtuse marginal is normal. OM2: The second obtuse marginal is normal. LEFT PLB: The left posterolateral branch is normal. RCA: The RCA is normal. RIGHT PDA: The right PDA is normal. OTHER FINDINGS: Thoracic aorta: ??Aortic sinus maximum cusp-cusp: 38 x 37 x 36 mm. ??Ascending aorta maximum diameters: 34 x 34 mm. Pericardium: No effusion. Left atrium: Incomplete contrast opacification. Atrial septum: No evidence of shunt. Pulmonary veins: Normal anatomy. Pulmonary trunk: 29 x 27 mm. CALCIUM SCORING TABLE . . ? Number of Lesions Pattern of Calcium Volume Total Score +-------+ + +--------+ + LM ? 0 ? 137 LAD ? 0 ? 0 LCx ? 0 ? 0 RCA ? 0 ? 0 Ramus ? 0 ? 0 '-------+ + +--------+ ' SCAN INFO TEST TYPE: ??Calcium score, Coronary CT Angiography SCANNER CARBIDE OPERATOR: ??Indicative Software SCANNER MODEL: ??Appurify DOSE REDUCTION ALGORITHM: ??Helical with dose modulation PHASE UNITS: ??% START PHASE: ??65 % END PHASE: ??75 % EKG GATED: ??Yes PRE-CONTRAST: ??Yes POST-CONTRAST: ??Yes 3D RECONSTRUCTION: ??Yes GENERAL ?CONTRAST AGENT ?CONTRAST AGENT USED?: ??Yes ?TYPE: ??Omnipaque 350 ?DOSE: ??100 ml ?RATE: ??6.5 ml/s ?ROUTE: ??IV ?ARM: ??Right ?BOLUS TECHNIQUE: ??Biphasic ?SERUM CREATININE: ??1.1 mg/dL ?CREATININE DATE: ??2023- ?CT CONTRAST REACTION: ??None ?MEDICATION ADMINISTERED DURING SCAN ?TYPE: ??Nitroglycerin, sublingual ?NITROGLYCERIN, TOTAL DOSE: ??0.4 mg ?RADIATION DOSE ?DLP: ??363 ?KV: ??100 ?SETUP ?PATIENT TYPE: ??Inpatient ?REASON(S) FOR SCAN: ??Other... ?OTHER, SPECIFY:: ??HF workup ?ATTENDING PHYSICIAN: ??BRENT RIOS ?TECHNOLOGIST: ??Jen Abel BILLMARTIN Patient Account ?[id number] Report generated by [employer], a product of [employer] For Patients: As a result of the Century Cures Act, medical imaging exams and procedure reports are released immediately into your electronic medical record. ??You may view this report before your referring provider. ?? If you have questions, please contact your health care provider. OVER-READ ??OVER-READ ??OVER-READ OVER-READ: DETAILED RADIOLOGY EXTRACARDIAC OVER-READ OF CARDIAC CT 09/02/2023 TECHNIQUE: ??Please see cardiology report for technical information. ??100 cc Omnipaque-350 intravenous contrast. ?? This exam is being performed in conjunction with the services provided by the [facility] ([facility]). CLINICAL HISTORY: ??Cardiac over-read. FINDINGS: Extracardiac findings: Visualized lungs and pleural spaces: Unremarkable. Visualized mediastinum: Unremarkable. Other abnormalities: None. Impression: No acute or significant extracardiac findings. Please note that all CT scans at this facility use dose modulation, iterative reconstruction, and/or weight-based dosing when appropriate to reduce radiation dose to as low as reasonably achievable. Dictated by: Harpreet Sue MD @ 09/02/2023 09:54:15 Vito Nuñez MD CT * POTASSIUM (09/01/2023 8:21 PM CDT) Only the most recent of3 resultswithin the time period is included. Pathologist [facility] POTASSIUM 3.8 3.5 - 5.1 mmol/L 09/01/2023 8:54 PM CDT [facility] [employer] LABORATORY-[facility] LABORAT[facility] Blood BLOOD SPECIMEN / Unknown Venipuncture / Unknown 09/01/2023 8:21 PM CDT 09/01/2023 8:30 PM CDT Brent Riso MD [facility] [address] [place] [address], * SCAN-CARDIAC STRIP (09/01/2023 7:50 PM CDT) Scanner OTHER * SCAN-CARDIAC STRIP (09/01/2023 7:24 AM CDT) Scanner OTHER * (ABNORMAL) Creatinine AM (09/01/2023 6:12 AM CDT) Only the most recent of2 resultswithin the time period is included. eGFR 68(L) >90 mL/min/1.7 3m2 09/01/2023 6:57 AM CDT [facility] Comment:As of 2021, eG FR is calculated by the CKD-EPI creatinine equation without race adjustment. ??eGFR can be influenced by muscle mass, exercise, and diet. ??The reported eGFR is an estimation only and is only applicable if the renal function is stable. CREATININE 1.10 0.70 - 1.20 mg/dL 09/01/2023 6:57 AM CDT [facility] LAB[facility] Blood BLOOD SPECIMEN / Unknown Venipuncture / Unknown 09/01/2023 6:12 AM CDT 09/01/2023 6:26 AM CDT Agustina Valero MD CHEMISTRY Performing Organization Address City/[facility]/ZIP Co de Phone Number [facility] [address] [place] [address], * Magnesium AM (09/01/2023 6:12 AM CDT) Only the most recent of3 resultswithin the time period is included. MAGNESIUM 1.9 1.6 - 2.4 mg/dL 09/01/2023 6:57 AM CDT [facility] LABORATORY Blood BLOOD SPECIMEN / Unknown Venipuncture / Unknown 09/01/2023 6:12 AM CDT 09/01/2023 6:26 AM CDT Agustina Valero MD CHEMISTRY Performing Organization Address City/[facility]/ZIP Co de Phone Number [facility] [address] [place] [address], * SCAN-CARDIAC STRIP (08/31/2023 8:10 PM CDT) Scanner OTHER * SCAN-CARDIAC STRIP (08/31/2023 5:30 PM CDT) Scanner OTHER * ECHO KAMAR WO CONTRAST W COLOR W LTD DOPPLER (08/31/2023 3:35 PM CDT) EJECTION FRACTION 30 - 35% Anatomical Region Laterality Modality Ultrasound 08/31/2023 2:17 PM CDT Narrative 08/31/2023 4:17 PM CDT TRANSESOPHAGEAL ECHOCARDIOGRAM ARVID Mer MCGUIRE ? Accession#: ?? [id number] : ?1940 82 years Study Date: ?? 08/31/2023 2:17:05 PM Gender: M ?BP: ? 143/98 mmHg Height: 170.00 cm ?BSA: ?1.94 m? ? ? Weight: 82.00 kg ? Tech: ? MKS ? Referring MD: VITO NUÑEZ Site: ? [facility] Reading Location: [facility] Patient Location: Inpatient. Procedure: KAMAR, Color Doppler and Limited Spectral Doppler. Indication for study: DCCV Cardiac Rhythm: Atrial fibrillation.Study quality: Excellent. Final Impressions: 1. No evidence of thrombus present in the left atrial appendage. 2. Normal left ventricular size, moderate decreased global systolic function with an estimated EF of 30 - 35%. 3. Right ventricular cavity size is not well visualized, global systolic RV function is not well visualized. 4. Moderately enlarged left atrium. 5. The mitral valve is normal, mild mitral regurgitation. 6. Moderate plaque in the throacic aorta. Procedure comments: Indications, goals, risks and alternatives of the procedure were discussed with the patient and informed consent was obtained. The patient received oral Lidocaine to anesthetized the posterior oropharynx, sedation of intravenous Propofol and general anesthesia. See procedural record for anesthesia details. Prior to performance of procedure, time out was called to accurately identify the patient and procedure. The Delta probe was passed without difficulty. KAMAR, Color Doppler and Limited Spectral Doppler was performed. The patient developed no apparent complications during the procedure. Estimated Blood Loss: 0 ml Versed: Specimen Collected: ?Proceduralist: Rios Flood MD Chamber Sizes and Function Normal left ventricular size, moderate decreased global systolic function with an estimated EF of 30 - 35%. No definite resting regional wall motion abnormality seen. Left atrial size is moderately enlarged. The left atrial appendage is well visualized and there is no evidence of thrombus present. Decreased left atrial appendage flow velocities. Right ventricular cavity size is not well visualized, global systolic RV function is not well visualized. The right atrium is not well visualized. The pulmonary artery is not well visualized. The sinus of Valsalva is normal sized. The ascending aorta is not well visualized. Aortic arch is normal sized with moderate plaque visualized. Descending aorta is normal sized with moderate plaque visualized. Valves, RV Pressures and Diastolic Function The aortic valve is normal in structure and trileaflet, no stenosis and no regurgitation. The mitral valve is normal in structure, mild mitral regurgitation. The tricuspid valve is normal in structure. Tricuspid regurgitation is trace regurgitation. The pulmonic valve is normal. No pulmonary regurgitation. Masses, Effusion, Shunts There is no pericardial effusion. Atrial septum is intact. Agitated saline injection not done. MEASUREMENTS AND CALCULATIONS 2-D Measurements and LV Function: HR 160 bpm . This study was interpreted by an [facility] accredited facility. ??Final ?? Procedure Note Rios Flood MD - 08/31/2023 TRANSESOPHAGEAL ECHOCARDIOGRAM ALIS MCGUIRE : 1940 82 years Study Date: 08/31/2023 2:17:05 PM Gender: M BP: 143/98 mmHg Height: 170.00 cm BSA: 1.94 m? ? ? Weight: 82.00 kg Tech: Leroy Referring MD: VITO NUÑEZ Site: [facility] Reading Location: [facility] Patient Location: Inpatient. Procedure: KAMAR, Color Doppler and Limited Spectral Doppler. Indication for study: DCCV Cardiac Rhythm: Atrial fibrillation.Study quality: Excellent. Final Impressions: 1. No evidence of thrombus present in the left atrial appendage. 2. Normal left ventricular size, moderate decreased global systolicfunction with an estimated EF of 30 - 35%. 3. Right ventricular cavity size is not well visualized, global systolicRV function is not well visualized. 4. Moderately enlarged left atrium. 5. The mitral valve is normal, mild mitral regurgitation. 6. Moderate plaque in the throacic aorta. Procedure comments: Indications, goals, risks and alternatives of theprocedure were discussed with the patient and informed consent wasobtained. The patient received oral Lidocaine to anesthetized theposterior oropharynx, sedation of intravenous Propofol and generalanesthesia. See procedural record for anesthesia details. Prior toperformance of procedure, time out was called to accurately identify thepatient and procedure. The Delta probe was passed without difficulty. KAMAR,Color Doppler and Limited Spectral Doppler was performed. The patientdeveloped no apparent complications during the procedure. Estimated Blood Loss: 0 ml Versed: Specimen Collected: Proceduralist: Rios Flood MD Chamber Sizes and Function Normal left ventricular size, moderate decreased global systolic functionwith an estimated EF of 30 - 35%. No definite resting regional wall motionabnormality seen. Left atrial size is moderately enlarged. The left atrialappendage is well visualized and there is no evidence of thrombus present.Decreased left atrial appendage flow velocities. Right ventricular cavitysize is not well visualized, global systolic RV function is not wellvisualized. The right atrium is not well visualized. The pulmonary arteryis not well visualized. The sinus of Valsalva is normal sized. Theascending aorta is not well visualized. Aortic arch is normal sized withmoderate plaque visualized. Descending aorta is normal sized with moderateplaque visualized. Valves, RV Pressures and Diastolic Function The aortic valve is normal in structure and trileaflet, no stenosis and noregurgitation. The mitral valve is normal in structure, mild mitralregurgitation. The tricuspid valve is normal in structure. Tricuspidregurgitation is trace regurgitation. The pulmonic valve is normal. Nopulmonary regurgitation. Masses, Effusion, Shunts There is no pericardial effusion. Atrial septum is intact. Agitated salineinjection not done. MEASUREMENTS AND CALCULATIONS 2-D Measurements and LV Function: HR 160 bpm . This study was interpreted by an [facility] accredited facility. Final Vito Nuñez MD ECHO ORD * EP OTHER PROCEDURE (08/31/2023 3:30 PM CDT) Anatomical Region Laterality Modality Other Narrative 08/31/2023 3:30 PM CDT Rios Flood MD ? 08/31/2023 ??3:30 PM [facility] Cardiac Electrophysiology Procedure Note DOS: 08/31/2023 Procedure type: cardioversion Preoperative diagnosis: AFRVR Indications, goals, risks, and alternatives of transesophageal echocardiography and cardioversion were reviewed with the patient and informed consent obtained. The patient is therapeutically anticoagulated on apixaban. Procedure Description: ??Time out was called. ??Brief general anesthesia by anesthesia service. ??Cardioversion patches were placed in an anterior/posterior position. ??KAMAR 08/31/2023 without evidence of left atrial appendage thrombus. ??See separate KAMAR report for details of findings. ??One 200 joules synchronized shock delivered with no change in underlying rhythm. A second synchronized shock at 360 J was delivered with return to SR. ?? Complications: ??No acute complications. ?? Rios Flood MD Vasyl Mao MD CV IMAGING * SCAN-CARDIAC STRIP (08/31/2023 10:44 AM CDT) Scanner OTHER * SCAN-CARDIAC STRIP (08/31/2023 10:44 AM CDT) Scanner OTHER * HEPATIC FUNCTION PANEL (08/31/2023 6:40 AM CDT) ALBUMIN 4.4 4.0 - 4.9 g/dL 08/31/2023 7:37 AM CDT [facility] TRAL LABORATORY PROTEIN,TOTAL 7.9 6.0 - 8.0 g/dL 08/31/2023 7:37 AM CDT [facility] TRA LABORATORY BILIRUBIN,TOTAL 0.6 0.0 - 1.2 mg/dL 08/31/2023 7:37 AM CDT [facility] LABORAT[facility] BILIRUBIN,DIRECT <0.2 0.0 - 0.3 mg/dL 08/31/2023 7:37 AM CDT [facility] LABORAT[facility] BILIRUBIN,INDIRE CT 08/31/2023 7:37 AM CDT [facility] TRA LABORATORY Comment:Unable to calculate, Direct Bili <0.2 ALK PHOSPHATASE 81 40 - 129 IU/L 08/31/2023 7:37 AM CDT [facility] ALT (SGPT) 19 10 - 50 IU/L 08/31/2023 7:37 AM CDT [facility] AST (SGOT) 24 10 - 50 IU/L 08/31/2023 7:37 AM T [facility] Blood BLOOD SPECIMEN / Unknown Non-Lab Venipuncture / Unknown 08/31/2023 6:40 AM CDT 08/31/2023 6:57 AM CDT Vito Nuñez MD CHEMISTRY [facility] [address] [place] [address], * (ABNORMAL) Electrolyte panel AM (08/31/2023 6:40 AM CDT) SODIUM 142 136 - 145 mmol/L 08/31/2023 7:37 AM CDT [facility] POTASSIUM 4.1 3.5 - 5.1 mmol/L 08/31/2023 7:37 AM CDT [facility] CHLORIDE 108(H) 98 - 107 mmol/L 08/31/2023 7:37 AM CDT [facility] CO2,TOTAL 22 22 - 29 mmol/L 08/31/2023 7:37 AM CDT [facility] ANION GAP 12 5 - 18 08/31/2023 7:37 AM CDT [facility] Blood BLOOD SPECIMEN / Unknown Non-Lab Venipuncture / Unknown 08/31/2023 6:40 AM CDT 08/31/2023 6:57 AM CDT Agustina Valero MD CHEMISTRY [facility] LAB[facility]ATORY [address] [place] [address], * SCAN-CARDIAC STRIP (08/30/2023 5:21 PM CDT) Scanner OTHER * XR CHEST 2 VIEWS PA AND LATERAL (08/30/2023 2:18 PM CDT) Anatomical Region Laterality Modality CHEST, THORAX, Lung, HEART Digit al Radiography 08/30/2023 2:36 PM CDT Narrative 08/30/2023 2:36 PM CDT For Patients: ??As a result of the Cures Act, medical imaging exams and procedure reports are released immediately into your electronic medical record. ??You may view this report before your referring provider. ??If you have questions, please contact your health care provider. Indication: Shortness of breath Technique: Chest 2 views Comparison: None Findings/Impression: Cardiovascular and mediastinum: Borderline heart size with atherosclerotic calcification. Lungs and pleural spaces: ??No pleural effusion or pneumothorax. Mild flattening of the hemidiaphragms suggesting hyperinflation. Trace basilar discoid atelectasis. Bones and soft tissues: ??No significant findings. Dictated by Yohan Rocha MD @ May ??2023 ??2:36PM (Electronically Signed) [email or web address] Procedure Note Yohan Rocha MD - 08/30/2023 For Patients: As a result of the Cures Act, medical imagingexams and procedure reports are released immediately into your electronicmedical record. You may view this report before your referring provider.If you have questions, please contact your health care provider. Indication: Shortness of breath Technique: Chest 2 views Comparison: None Findings/Impression: Cardiovascular and mediastinum: Borderline heart size with atheroscleroticcalcification. Lungs and pleural spaces: No pleural effusion or pneumothorax. Mildflattening of the hemidiaphragms suggesting hyperinflation. Trace basilardiscoid atelectasis. Bones and soft tissues: No significant findings. Dictated by Yohan Rocha MD @ Aug 30 2023 2:36PM (Electronically Signed) [email or web address] Lucio Dillard MD GENERAL IMAGI NG * TSH (08/30/2023 1:46 PM CDT) Pathologist [facility] TSH 2.36 0.27 - 4.20 uIU/mL 08/30/2023 2:40 PM CDT [facility] Blood BLOOD SPECIMEN / Unknown Venipuncture / Unknown 08/30/2023 1:46 PM CDT 08/30/2023 1:53 PM CDT [facility] - 08/30/2023 2:40 PM CDT In Adults, TSH values between 5.00 and 10.00 uIU/ml do not necessarily indicate the presence of Hypothyroidism. Correlation with clinical findings such as presence of goiter and/or Thyroperoxidase (TPO) Antibody may be helpful. For more information please refer to HOWARD 2004; 291: 228-238. Lucio Dillard MD CHEMISTRY [facility] [address] [place] [address], * CBC W PLT NO DIFF (08/30/2023 1:46 PM CDT) WHITE BLOOD COUNT 6.9 4.5 - 11.0 thou/cu mm 08/30/2023 2:14 PM CDT [facility] RED BLOOD COUNT 5.25 4.30 - 5.90 mil/cu mm 08/30/2023 2:14 PM CDT [facility] HEMOGLOBIN 16.1 13.5 - 17.5 g/dL 08/30/2023 2:14 PM CDT [facility] HEMATOCRIT 48.0 37.0 - 53.0 % 08/30/2023 2:14 PM CDT [facility] MCV 91 80 - 100 fL 08/30/2023 2:14 PM CDT [facility] MCH 30.7 26.0 - 34.0 pg 08/30/2023 2:14 PM CDT [facility] MCHC 33.5 32.0 - 36.0 g/dL 08/30/2023 2:14 PM CDT [facility] RDW 13.1 11.5 - 15.5 % 08/30/2023 2:14 PM CDT [facility] PLATELET COUNT 238 140 - 440 thou/cu mm 08/30/2023 2:14 PM CDT [facility] MPV 9.9 6.5 - 11.0 fL 08/30/2023 2:14 PM CDT [facility] NRBC 0.0 % 08/30/2023 2:14 PM CDT [facility] ABS NRBC 0.0 thou /cu mm 08/30/2023 2:14 PM CDT [facility] Blood BLOOD SPECIMEN / Unknown Venipuncture / Unknown 08/30/2023 1:46 PM CDT 08/30/2023 1:53 PM CDT Lucio Dillard MD HEMATOLOGY Performing Organization Address City/State/[facility] Co de Phone Number [facility] [address] [place] [id number] * SCAN-CARDIAC STRIP (08/30/2023 12:00 AM CDT) Narrative 08/30/2023 12:00 AM CDT Ordered by an unspecified provider. Other Clinical Staff OTHER * SCAN-EVENT MONITOR (08/27/2023 12:00 AM CDT) Scanner OTHER from Last 3 Months Advance Directives * Full Code (Latest Code Status on File) Date Activated Date Inactivated Comments 08/30/2023 3:14 PM 09/02/2023 3:34 PM Question Answer Comments Code Status Discussion: Reviewed Preferences Care Teams Journeyman Press Operator Relationship Specialty Start Date End Date Sara Laureano, LETICIA [address] [place] [address] PCP - General Physician Cell Efficiency Supervisor 08/30/23
--- OUTSIDE RECORDS SUMMARY | 2023-11-13 19:59 | XMS_ITS | Encounter Summary ---
Author Organization [place] Address [address] [place] [address] Care Team Providers Care Fur Operator Name Role Phone [facility], Lupillo [place] Primary Care Provider Pilo Cameron Primary Care Provider [phone] Kristel Hull RN Unavailable Unavailable Elder Thorpe MD Unavailable Unavailable Weight, Kiran Valdes MD Unavailable Maggy Lindsey RN Unavailable [phone] Eliecer Aceves RN Unavailable [phone] Elder Thorpe MD Unavailable Unavailable Elder Thorpe MD Unavailable Unavailable Duyen Santoro Unavailable [phone] Encounter Details Date Type Department Care Team (Late st Contact Info) Description 10/02/2012 External Order Results [address] [place] [id number] Abstract, Provider Social History Tobacco Use Types [...] Procedure Name Priority Date/Time Associated Diagnosis Comments [facility] GROUP AUDIOMETRIC TESTING Routine 09/24/2012 documented in this encounter Results * GROUP AUDIOMETRIC TESTING (09/24/2012) Provider Abstract PROCEDURES documented in this encounter Visit Diagnoses Not on filedocumented in this encounter Care Teams Fur Operator Relationship Specialty Start Date End Date Clinic, [facility] [address] [place] [address] PCP - General 01/24/13 02/04/13 Pilo Cameron [address] [address] PCP - General Family Practice 02/05/13 Elder Thorpe MD NO INFO AVAILABLE 03/13/2022 PCP - Assigned PCP 03/29/14 06/25/18 Kristel Hull RN Continuity Student Union Consultant 10/09/14 11/09/15 Elder Thorpe MD Referring Physician Oncology 10/13/14 08/04/20 Kiran Lee MD [address] [place] [id number] Urology 10/13/14 Maggy Lindsey, RN Registered Nurse 11/10/15 03/28/17 Eliecer Aceves, RN Registered Nurse 03/29/17 06/19/18 Elder Thorpe MD NO INFO AVAILABLE 03/13/2022 Assigned PCP 03/29/14 11/09/18 Duyen Santoro PA [address] [place] [address] [place] [address] Assigned Surgical Provider 02/20/21 08/11/22 documented as of this encounter
--- OUTSIDE RECORDS SUMMARY | 2023-11-13 19:59 | XMS_ITS | Encounter Summary ---
Author Organization [place] Address [address] [place] [address] Care Team Providers Care Social Security Benefits Interviewer Name Role Phone [facility], Lupillo [place] Primary Care Provider Pilo Cameron Primary Care Provider [phone] Kristel Hull RN Unavailable Unavailable Elder Thorpe MD Unavailable Unavailable Weight, Kiran Valdes MD Unavailable Maggy Lindsey RN Unavailable Eliecer Aceves RN Unavailable Elder Thorpe MD Unavailable Unavailable Elder Thorpe MD Unavailable Unavailable Duyen Santoro Unavailable [phone] Encounter Details Date Type Department Care Team (Late st Contact Info) Description 09/13/[address] [place] [address] Chris Armstrong MD [address] [place] [address] Social History Tobacco Use Types Packs/Day Years [...] encounter Miscellaneous Notes * Telephone Encounter - Justine Swain - 09/13/2012 12:59 PM CDT Pts was able to get Arvid in for a audiogram test on September 24. She will have them fax results to me . documented in this encounter Plan of Treatment Not on file documented as of this encounter Visit Diagnoses Not on filedocumented in this encounter Care Teams Social Security Benefits Interviewer Relationship Specialty Start Date End Date Clinic, [facility] [address] [place] [address] PCP - General 01/24/13 02/04/13 Pilo Cameron [address] [id number] PCP - General Family Practice 02/05/13 Elder Thorpe MD NO INFO AVAILABLE 03/13/2022 PCP - Assigned PCP 03/29/14 06/25/18 Kristel Hull RN Continuity Roofing Applicator 10/09/14 11/09/15 Elder Thorpe MD Referring Physician Oncology 10/13/14 08/04/20 Jesus, Kiran Valdes MD [address] [place] [address] Urology 10/13/14 Maggy Lindsey, RN Registered Nurse 11/10/15 03/28/17 Eliecer Aceves, RN Registered Nurse 03/29/17 06/19/18 Elder Thorpe MD NO INFO AVAILABLE 03/13/2022 Assigned PCP 03/29/14 11/09/18 Duyen Santoro PA [address] [facility] [place] [address] Assigned Surgical Provider 02/20/21 08/11/22 documented as of this encounter
--- NOTE | 2023-12-18 08:56 | W.PM.SLEEP ---
Sleep Study Details Details Interpreting Provider: Viktoriya Date of Sleep Study: 11/13/23 Sleep Study Details: STUDY TYPE:? Hospital-based, attended with CPAP titration ? BMI:? 28.5 ORDERING PROVIDER:? Viktoriya INDICATION:? Previous positive sleep study ? SLEEP SUMMARY:? And 248 minutes total sleep time RESPIRATORY SUMMARY:? Overall AHI during this study was 24.9 per CMS guideline. Patient was titrated on CPAP up to a pressure of 9 decreasing AHI to 16.2 and including REM stage sleep in the nonsupine position. The titration was marred by frequent central apneas. PERIODIC LIMB MOVEMENTS OF SLEEP:? Index 35.3, index with arousal 2.7 CARDIAC:? Awake 56, asleep 54. No arrhythmias noted IMPRESSION:? Obstructive sleep apnea with incomplete titration due to emergence of central apneas. RECOMMENDATION: Would recommend a repeat titration for bilevel. If that is not effective he will need an echocardiogram an ASV titration.
== END 2023-11-13 19:56 | disposition home or self-care (01) ==
LOC: SLEEP 19:56
PROVIDERS: PCP Physician Assistant Medical; Visit Provider Otolaryngology
DX: G47.33 Obstructive sleep apnea (adult) (pediatric) (principal)
CPT/HCPCS: 95811

== ENCOUNTER 2023-12-20 22:37 | Outpatient (REF) | payer OTHER, SELFPAY ==
--- OUTSIDE RECORDS SUMMARY | 2023-12-20 22:40 | XMS_ITS | Encounter Summary ---
Author Organization [place] Address [address] [place] [address] Care Team Providers Care Metallurgical Or Materials Technician Name Role Phone Pilo Cameron Primary Care Provider [phone] Elder Thorpe MD Unavailable Unavailable Weight, Kiran Valdes MD Unavailable Duyen Santoro Unavailable [phone] Encounter Details Date Type Department Care Team [...] on filedocumented in this encounter Care Teams Metallurgical Or Materials Technician Relationship Specialty Start Date End Date Pilo Cameron [place] [address] [employer] [place], [place] [id number] PCP - General Family Practice 02/05/13 Elder Thorpe MD [address] [address] Referring Physician Oncology 10/13/14 08/04/20 Weight, Kiran Valdes MD [address] [place], [place] [address] Urology 10/13/14 Duyen Santoro PA [address] [facility] [place] [place], [place] [address] Assigned Surgical Provider 02/20/21 08/11/22 documented as of this encounter
--- OUTSIDE RECORDS SUMMARY | 2023-12-20 22:40 | XMS_ITS | Referral Summary ---
Author Organization [place] Address [address] [place] [address] Care Team Providers Care Aircraft Armorer Name Role Phone Pilo Cameron Primary Care Provider + [phone] Weight, Kiran Valdes MD Unavailable Allergies Active [...] ST Respiratory Rate 16 05/21/2019 10:56 AM PREVENTION COORDINATOR Oxygen Saturation 95% 05/21/2019 10:56 AM PREVENTION COORDINATOR Inhaled Oxygen Concentration - - Weight 79.4 kg (175 lb) 02/10/2021 9:50 AM CDT Height 170.2 cm (5' 7) 02/10/2021 9:50 AM CDT Body Mass Index 27.41 02/10/2021 9:50 AM CDT Plan of Treatment Not on file Medical Devices Implanted Type Area Lumber Driver Device Identifier Shelf Expiration Date Model / Serial / Lot Parietex Composite Parastomal Mesh Implanted:Qty: 1 on 12/02/2015 by Rocky Sands MD at [facility] Mesh N/A: Abdomen COVIDIEN 08/20/2018 PCOPM20 / / [id number] Stent Ureteral Dbl Pigtail Inlay [id number] Implanted:Qty: 1 on 08/14/2012 by Salvador Yoo MD at [facility] Left: Ureter [employer] 04/21/2017 [id number] / / [id number] Stent Urinary Diversion Percflex Set [id number] W/Gw Implanted:Qty: 1 on 01/24/2013 by Ana Madrid MD at [facility] [employer] 10/20/2016 160-210 / / [id number] Mesh Symbotex Composite Stex Round 12cm Sym12 Implanted:Qty: 1 on 12/02/2015 by Rocky Sands MD at [facility] N/A: Abdomen COVIDIEN 01/21/2020 [id number] / / [id number] Description:RInsed mesh impl ant per Covidien Rep recommendations: sterile 0.9% normal saline from 5480-2403 hours. Saline lot: [id number], expiration date: 10/20/2018. This implant is NOT tissue. Procedures Procedure Name Priority Date/Time Associated Diagnosis Comments CT CHEST ABDOMEN PELVIS W/O CONTRAST Routine 02/04/2018 9:22 AM CDT Bladder tumor COLONOSCOPY Routine 03/29/2017 12:52 PM PREVENTION COORDINATOR from Last 3 Months or Most Recently [...] CT ORDERABLES * COLONOSCOPY (03/29/2017 12:52 PM PREVENTION COORDINATOR) COLONOSCOPY [facility] Patient Name: Alis Mcguire ?Procedure Date: [...] monitored continuously. The ?Olympus Adult Colonoscope Model #CF-VG627S, ?Endora#122, SN#[id number] was introduced through the ?anus and advanced [...] Procedure Code(s): ? --- Professional --- ? 87463, Colonoscopy, flexible; with removal of tumor(s), polyp(s), or ? other lesion(s) by snare technique Diagnosis Code(s): ? --- Professional --- ? 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 Z86.010, Personal history of colonic polyps ? K57.30, Diverticulosis of large intestine without perforation or abscess ? without bleeding CPT copyright 2016 [employer]. All rights reserved. The codes documented in this report are preliminary and upon death surveys coder review may be revised to meet current compliance requirements. _ Ever Motley MD 03/29/2017 2:35:40 PM I was physically present for the entire viewing portion of the exam. Ever Motley MD Number of Addenda: 0 Note Initiated On: 03/29/2017 12:52 PM MRN: ?[id number] Procedure Date: ? 03/29/2017 12:52:56 PM Scope Withdrawal Time: 0 hours 7 minutes 45 seconds Total Procedure Duration: 0 hours 17 minutes 46 seconds Estimated Blood Loss: ? Scope In: 2:06:33 PM Scope Out: 2:24:19 PM RADIOLOGY RESULTS 03/29/2017 12:5 2 PM PREVENTION COORDINATOR Pilo Cameron PROCEDURES RADIOLOGY RESULTS from Last 3 Months or Most Recently Relevant to Health Maintenance Advance Directives For more information, please contact: [phone] * Full Code (Latest Code Status on File) Date Activated Date Inactivated Comments 01/24/2013 7:26 PM 01/30/2013 9:10 PM * Full Code Date Activated Date Inactivated Comments 08/14/2012 6:44 PM 08/16/2012 3:20 PM * Full Code Date Activated Date Inactivated Comments 08/14/2012 5:40 PM 08/14/2012 6:44 PM Care Teams Aircraft Armorer Relationship Specialty Start Date End Date Pilo Cameron [address] [address] PCP - General Family Practice 02/05/13 Weight, Kiran Valdes MD [address] [place] [address] Urology 10/13/14
--- OUTSIDE RECORDS SUMMARY | 2023-12-20 22:40 | XMS_ITS | Clinical Summary ---
Author Organization [place] Address [address] [place] [address] Care Team Providers Care Appeals Court Associate Justice Name Role Phone Pilo Cameron Primary Care Provider + [phone] Weight, Kiran Valdes MD Unavailable Allergies Active [...] ST Respiratory Rate 16 05/21/2019 10:56 AM PULP HOUSE SUPERVISOR Oxygen Saturation 95% 05/21/2019 10:56 AM PULP HOUSE SUPERVISOR Inhaled Oxygen Concentration - - Weight 79.4 [...] IMMUNIZATION (1 of 2) 1992 RSV VACCINE (1 - 1-dose 60+ series) 2002 FALL RISK ASSESSMENT 10/14/2007 MEDICARE ANNUAL WELLNESS VISIT 10/14/2007 Pneumococcal Vaccine: 65+ Years (1 of 1 - PCV) 10/14/2007 COVID-19 Vaccine (3 - 2022- season) 2022 07/27/2020, 06/30/2020 PHQ-2 (once per [...] (Cologuard) Discontinued Medical Devices Implanted Type Area Director Of Safety And Security Device Identifier Shelf Expiration Date Model / Serial / Lot Parietex Composite Parastomal Mesh Implanted:Qty: 1 on 12/02/2015 by Rocky Sands MD at [facility] Mesh N/A: Abdomen COVIDIEN 08/20/2018 PCOPM20 / / [id number] Stent Ureteral Dbl Pigtail Inlay [id number] Implanted:Qty: 1 on 08/14/2012 by Salvador Yoo MD at [facility] Left: Ureter [employer] 04/21/2017 [id number] / / [id number] Stent Urinary Diversion Percflex Set [id number] W/Gw Implanted:Qty: 1 on 01/24/2013 by Ana Madrid MD at [facility] [employer] 10/20/2016 160-210 / / [id number] Mesh Symbotex Composite Stex Round 12cm Sym12 Implanted:Qty: 1 on 12/02/2015 by Rocky Sands MD at [facility] N/A: Abdomen COVIDIEN 01/21/2020 SYM12 / / [id number] Description:RInsed mesh impl ant per Covidien Rep recommendations: sterile 0.9% normal saline from 2796-2141 hours. Saline lot: [id number], expiration date: 10/20/2018. This implant is NOT tissue. Procedures Procedure Name Priority Date/Time Associated Diagnosis Comments CT CHEST ABDOMEN PELVIS W/O CONTRAST Routine 02/04/2018 9:22 AM CDT Bladder tumor COLONOSCOPY Routine 03/29/2017 12:52 PM PULP HOUSE SUPERVISOR from Last 3 Months or Most Recently [...] nodules. ANAM DIAZ MD Elder Thorpe MD [facility] CT ORDERABLES * COLONOSCOPY (03/29/2017 12:52 PM PULP HOUSE SUPERVISOR) COLONOSCOPY [facility] Patient Name: Alis Garza Maynor ?Procedure Date: 03/29/2017 12:52 PM ? Date [...] monitored continuously. The ?Olympus Adult Colonoscope Model #CF-MH674O, ?Endora#122, SN#[id number] was introduced through the ?anus and advanced [...] Procedure Code(s): ? --- Professional --- ? 57836, Colonoscopy, flexible; with removal of tumor(s), polyp(s), or ? other lesion(s) by snare technique Diagnosis Code(s): ? --- Professional --- ? 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 Z86.010, Personal history of colonic polyps ? K57.30, Diverticulosis of large intestine without perforation or abscess ? without bleeding CPT copyright 2016 [employer]. All rights reserved. The codes documented in this report are preliminary and upon electric powerline examiner review may be revised to meet current compliance requirements. _ Ever Motley MD 03/29/2017 2:35:40 PM I was physically present for the entire viewing portion of the exam. Ever Motley MD Number of Addenda: 0 Note Initiated On: 03/29/2017 12:52 PM MRN: ?[id number] Procedure Date: ? 03/29/2017 12:52:56 PM Scope Withdrawal Time: 0 hours 7 minutes 45 seconds Total Procedure Duration: 0 hours 17 minutes 46 seconds Estimated Blood Loss: ? Scope In: 2:06:33 PM Scope Out: 2:24:19 PM RADIOLOGY RESULTS 03/29/2017 12:5 2 PM PULP HOUSE SUPERVISOR Pilo Cameron PROCEDURES RADIOLOGY RESULTS from Last 3 Months or Most Recently Relevant to Health Maintenance Advance Directives For more information, please contact: [phone] * Full Code (Latest Code Status on File) Date Activated Date Inactivated Comments 01/24/2013 7:26 PM 01/30/2013 9:10 PM * Full Code Date Activated Date Inactivated Comments 08/14/2012 6:44 PM 08/16/2012 3:20 PM * Full Code Date Activated Date Inactivated Comments 08/14/2012 5:40 PM 08/14/2012 6:[address] Associate Justice Relationship Specialty Start Date End Date Pilo Cameron [address] [address] PCP - General Family Practice 02/05/13 Weight, Kiran Valdes MD [address] [place], [place] [address] Urology 10/13/14
--- OUTSIDE RECORDS SUMMARY | 2023-12-20 22:40 | XMS_ITS | Encounter Summary ---
Author Organization [place] Address [address] [place] [address] Care Team Providers Care Sales Incentive Analyst Name Role Phone [facility], Lupillo [place] Primary Care Provider Pilo Cameron Primary Care Provider [phone] Kristel Hull RN Unavailable Unavailable Elder Thorpe MD Unavailable Unavailable Weight, Kiran Valdes MD Unavailable [phone] Maggy Lindsey RN Unavailable Eliecer Aceves RN Unavailable [phone] Elder Thorpe MD Unavailable Unavailable Elder Thorpe MD Unavailable Unavailable Duyen Santoro Unavailable [phone] Encounter Details Date Type Department Care Team (Late st Contact Info) Description 10/02/2012 External Order Results [address] [place] [address] Abstract, Provider Social History Tobacco Use Types [...] Procedure Name Priority Date/Time Associated Diagnosis Comments [facility] GROUP AUDIOMETRIC TESTING Routine 09/24/2012 documented in this encounter Results * GROUP AUDIOMETRIC TESTING (09/24/2012) Provider Abstract PROCEDURES documented in this encounter Visit Diagnoses Not on filedocumented in this encounter Care Teams Sales Incentive Analyst Relationship Specialty Start Date End Date Clinic, [facility] [address] [place] [address] PCP - General 01/24/13 02/04/13 Pilo Cameron [address] [address] PCP - General Family Practice 02/05/13 Elder Thorpe MD NO INFO AVAILABLE 03/13/2022 PCP - Assigned PCP 03/29/14 06/25/18 Kristel Hull RN Continuity Open Hearth Furnace Laborer 10/09/14 11/09/15 Elder Thorpe MD Referring Physician Oncology 10/13/14 08/04/20 Kiran Lee MD [address] [place] [address] Urology 10/13/14 Maggy Lnidsey, RN Registered Nurse 11/10/15 03/28/17 Eliecer Aceves, RN Registered Nurse 03/29/17 06/19/18 Elder Thorpe MD NO INFO AVAILABLE 03/13/2022 Assigned PCP 03/29/14 11/09/18 Duyen Santoro PA [address] [place] [address] [place] [address] Assigned Surgical Provider 02/20/21 08/11/22 documented as of this encounter
--- OUTSIDE RECORDS SUMMARY | 2023-12-20 22:40 | XMS_ITS | Encounter Summary ---
Author Organization [place] Address [address] [place] [address] Care Team Providers Care Asphalt Spreader Name Role Phone [facility], Lupillo [place] Primary Care Provider Pilo Cameron Primary Care Provider [phone] Kristel Hull RN Unavailable Unavailable Elder Thorpe MD Unavailable Unavailable Weight, Kiran Valdes MD Unavailable Maggy Lindsey RN Unavailable Eliecer Aceves RN Unavailable [phone] Elder Thorpe MD Unavailable Unavailable Elder Thorpe MD Unavailable Unavailable Duyen Santoro Unavailable Encounter Details Date Type Department Care Team (Late st Contact Info) Description 09/24/2012 External Order Results [address] [place] [address] Abstract, Provider Social History Tobacco Use Types [...] Procedure Name Priority Date/Time Associated Diagnosis Comments [facility] HEARING SCREENING Routine 09/24/2012 documented in this encounter Results * HEARING SCREENING (09/24/2012) Provider Abstract PROCEDURES documented in this encounter Visit Diagnoses Not on filedocumented in this encounter Care Teams Asphalt Spreader Relationship Specialty Start Date End Date Clinic, [facility] [address] [place], [place] [phone] PCP - General 01/24/13 02/04/13 Pilo Cameron [facility] [address] [place] [address] PCP - General Family Practice 02/05/13 Elder Thorpe MD NO INFO AVAILABLE 03/13/2022 PCP - Assigned PCP 03/29/14 06/25/18 Kristel Hull RN Continuity Day Care Home Provider 10/09/14 11/09/15 Elder Thorpe MD Referring Physician Oncology 10/13/14 08/04/20 Kiran Lee MD [address] [place], [place] [address] Urology 10/13/14 Maggy Lindsey, RN Registered Nurse 11/10/15 03/28/17 Eliecer Aceves, RN Registered Nurse 03/29/17 06/19/18 Elder Thorpe MD NO INFO AVAILABLE 03/13/2022 Assigned PCP 03/29/14 11/09/18 Duyen Santoro PA [address] [place] [address] Urology [place], [place] [address] Assigned Surgical Provider 02/20/21 08/11/22 documented as of this encounter
--- OUTSIDE RECORDS SUMMARY | 2023-12-20 22:40 | XMS_ITS | Encounter Summary ---
Author Organization [place] Address [address] [place] [address] Care Team Providers Care Contact Center Director Name Role Phone [facility] [place] Primary Care Provider Pilo Cameron Primary Care Provider [phone] Kristel Hull RN Unavailable Unavailable Elder Thorpe MD Unavailable Unavailable Weight, Kiran Valdes MD Unavailable [phone] Maggy Lindsey RN Unavailable Eliecer Aceves RN Unavailable [phone] Elder Thorpe MD Unavailable Unavailable Elder Thorpe MD Unavailable Unavailable Duyen Santoro Unavailable [phone] Encounter Details Date Type Department Care Team (Late st Contact Info) Description 09/19/2012 External Order Results [address] [place] [id number] Abstract, Provider Social History Tobacco Use Types [...] on filedocumented in this encounter Care Teams Contact Center Director Relationship Specialty Start Date End Date [facility] [address] [place] [address] PCP - General 01/24/13 02/04/13 Pilo Cameron [facility] [address] [place] [address] [id number] PCP - General Family Practice 02/05/13 Elder Thorpe MD NO INFO AVAILABLE 03/13/2022 PCP - Assigned PCP 03/29/14 06/25/18 Kristel Hull RN Continuity Clinical Research Monitor 10/09/14 11/09/15 Elder Thorpe MD Referring Physician Oncology 10/13/14 08/04/20 Kiran Lee MD [address] [place] [address] [id number] Urology 10/13/14 Maggy Lindsey, RN Registered Nurse 11/10/15 03/28/17 Eliecer Aceves, RN Registered Nurse 03/29/17 06/19/18 Elder Thorpe MD NO INFO AVAILABLE 03/13/2022 Assigned PCP 03/29/14 11/09/18 Duyen Santoro PA 9 [facility] Urology [place], [place] [address] Assigned Surgical Provider 02/20/21 08/11/22 documented as of this encounter
--- OUTSIDE RECORDS SUMMARY | 2023-12-20 22:40 | XMS_ITS ---
Author Organization [place] Address [address] [place] [address] Care Team Providers Care Pluck Trimmer Name Role Phone Pilo Cameron Primary Care Provider + [phone] Weight, Kiran Valdes MD Unavailable Active Problems [...] treatments are documented for this patient in [facility]. Treatments may have been administered in another system.
--- OUTSIDE RECORDS SUMMARY | 2023-12-20 22:40 | XMS_ITS | Encounter Summary ---
Author Organization [place] Address [address] [place] [address]. [place] [address] Care Team Providers Care Social Science Research Assistant Name Role Phone Pilo Cameron Primary Care Provider [phone] Kristel Hull RN Unavailable Unavailable Elder Thorpe MD Unavailable Unavailable Weight, Kiran Valdes MD Unavailable Maggy Lindsey RN Unavailable Eliecer Aceves RN Unavailable [phone] Elder Thorpe MD Unavailable Unavailable Elder Thorpe MD Unavailable Unavailable Duyen Santoro Unavailable Encounter Details Date Type Department Care Team (Late st Contact Info) Description 09/26/2013 External Order Results [facility] [address], RYAN [address] [facility] [place] [phone] Shaista Farr MD [address] [place] [address] Social History Tobacco Use Types Packs/Day Years [...] filedocumented in this encounter Care Teams Social Science Research Assistant Relationship Specialty Start Date End Date Pilo Cameron [address] [place] [address] PCP - General Family Practice 02/05/13 Elder Thorpe MD NO INFO AVAILABLE 03/13/2022 PCP - Assigned PCP 03/29/14 06/25/18 Kristel Hull RN Continuity Cured Meat Packing Supervisor 10/09/14 11/09/15 Elder Thorpe MD Referring Physician Oncology 10/13/14 08/04/20 Jesus, Kiran Valdes MD [address] [place] [address] [id number] Urology 10/13/14 Maggy Lindsey, RN Registered Nurse 11/10/15 03/28/17 Eliecre Aceves, RN Registered Nurse 03/29/17 06/19/18 Elder Thorpe MD NO INFO AVAILABLE 03/13/2022 Assigned PCP 03/29/14 11/09/18 Duyen Santoro PA 9 [facility] Urology [place], [place] [address] Assigned Surgical Provider 02/20/21 08/11/22 documented as of this encounter
--- OUTSIDE RECORDS SUMMARY | 2023-12-20 22:41 | XMS_ITS | Clinical Summary ---
Author Organization [employer] Address [place], [place] [address] Care Team Providers Care Accounts Manager Name Role Phone Sara Laureano PA-C Primary Care Provider [phone] Allergies Active Allergy Reactions Criticality Noted Date Comments Cyclobenzaprine *Unknown 08/30/2023 Menthol Rash Low 08/12/2012 Topical Medications Medication Sig Dispensed Refills Start Date End Date Status cyanocobalamin, vitamin B-12, (VITAMIN B-12 ORAL) Take 1 Tablet by mouth once daily if needed (when remembers). Active metoprolol succinate (TOPROL XL) 50 mg [...] times daily. 180 Tablet 1 10/22/2023 Active amiodarone (CORDARONE) 200 mg tabletIndications: Atrial flutter with rapid ventricular response (HC),HFrEF (heart failure with reduced ejection fraction) (HC) Take 1 Tablet (200 mg) by mouth once daily. 180 Tablet 09/25/2023 11/22/2023 Discontinued (*Med complete/Reg imen complete/Lev el of care change) Active Problems Problem Noted Date Diagnosed Date Atrial fibrillation with RVR 08/30/2023 HFrEF (heart failure with reduced ejection fract ion) 08/30/2023 History of bladder cancer 08/30/2023 Encounters Date Type Department Care Team Description 12/06/2023 [place] [facility] [address] [address] Cordell Aceves MD Medication Management 11/22/2023 Tele[place] [facility] [address] [address] Cordell Aceves MD Medication Management (Multaq griffin check.) 11/21/2023 2:00 PM CDT Office Visit [address] Castillo [address] [place] [address] Faye Vasquez PA Follow Up (2 month f/u echo prior) 11/21/2023 1:00 PM CDT Orders Only [address] Castillo [address] [place] [address] 1 scan: (1-Ord) ECHO TTE LIMITED WO CONTRAST W COLOR W LTD DOPPLER ([id number]) 11/21/2023 Orders Only [address] Castillo [address] [place] [address] Raf Shen 1 scan: (1-Ord) [facility] WH: EKG final signed 11/21/23 11/21/2023 Travel 10/22/2023 Telephone [facility] [address] [facility] [address] [place] [phone] Arturo Acosta MD Refill Request 10/04/2023 3:00 PM CDT Office Visit [facility] [address] [place] [address] Arturo Acosta MD 10/01/2023 Telephone [facility] [place] [address] [facility] [address] [place] [address] Cordell Aceves MD Refill Request 09/24/2023 Telephone [facility] [address] [facility] [address] [place] [address] Cordell Aceves MD Medication Management 09/20/2023 Orders Only [place] [id number] [place] [address] Maria Del Carmen Jacobson 1 scan: (1-Ord) ekg from Last 3 Months Family History Medical [...] drink = 0.6 oz pur e alcohol) very rare Social Connections Answer Date Recorded Frequency of [...] Sign Reading Time Taken Comments Blood Pressure 114/68 11/21/2023 1:49 PM CDT Pulse 55 11/21/2023 1:49 PM CDT Temperature 36.4 ??C (97.6 ??F) 09/05/2023 12:30 PM C DT Respiratory Rate 18 09/05/2023 3:30 PM CDT Oxygen Saturation 96% 09/13/2023 2:52 PM CDT Inhaled Oxygen Concentration - - Weight 78.9 kg (174 lb) 11/21/2023 1:49 PM CDT Height 170.2 cm (5' 7) 11/21/2023 1:49 PM CDT Body Mass Index 27.25 11/21/2023 1:49 PM CDT Plan of Treatment Health Maintenance Due [...] wt on same day) for age 18+ 11/20/2024 11/21/2023, 09/13/2023 Procedures Procedure Name Priority Date/Time Associated Diagnosis Comments ECHO TTE LIMITED WO CONTRAST W COLOR W LTD DOPPLER Routine 11/21/2023 12:56 PM CDT Persistent atrial fibrillation (HC) Essential hypertension Chronic systolic heart failure (HC) EKG 12 LEAD Routine 11/21/2023 Atrial flutter with rapid ventricular response (HC) EKG 12 LEAD Routine 09/20/2023 Persistent atrial fibrillation (HC) Essential hypertension Chronic systolic heart failure (HC) from Last 3 Months Results * ECHO TTE LIMITED WO CONTRAST W COLOR W LTD DOPPLER (11/21/2023 12:56 PM CDT) EJECTION FRACTION 63 % PEAK TR VELOCITY 2.7 m/s LVEDD 4.4 cm Anatomical Region Laterality Modality Ultrasound 11/21/2023 12:5 2 PM CDT Narrative 11/21/2023 4:29 PM CDT ECHOCARDIOGRAM ARVMCKENZIE MCGUIRE ? Accession#: ?? [id number] : ?1940 83 years Study Date: ?? 11/21/2023 12:52:45 PM Gender: M ?BP: ? 130/80 mmHg Height: 170.00 cm ?BSA: ?1.94 m? ? ? Weight: 82.00 kg ? Tech: ? NWA ? Referring MD: CORDELL ACEVES Site: ? [facility] Reading Location: [facility] Patient Location: Procedure: Limited 2D , Color Doppler and Limited Spectral Doppler. Indication for study: Presistent Afib, HTN, CHF Cardiac Rhythm: Regular.Study quality: Fair. Final Impressions: Limited Echocardiogram performed 1. Normal left ventricular size, mildly increased wall thickness, normal global systolic function, calculated EF of 63 %. 2. Mildly enlarged left atrium. 3. The aortic valve is trileaflet and sclerotic, no stenosis and no regurgitation. Comparison Compared to prior exam report: - The left ventricular function has increased. - Mitral regurgitation has decreased. Chamber Sizes and Function Normal left ventricular size, mildly increased wall thickness, normal global systolic function, calculated EF of 63 %. Left atrial size is mildly enlarged. Right ventricular cavity size is normal, global systolic RV function is normal. RV wall thickness is normal. The right atrium is normal. Right atrial volume index is 14 ml/m? ? ?. Right atrial area is 12 cm? ? ?. The pulmonary artery is of normal size and origin. The sinus of Valsalva is normal sized. The ascending aorta is normal sized. Valves, RV Pressures and Diastolic Function The aortic valve is trileaflet and sclerotic, no stenosis and no regurgitation. The mitral valve is normal in structure, mild mitral regurgitation. The tricuspid valve is normal in structure. Tricuspid regurgitation is trace. The tricuspid regurgitant velocity is 2.7 m/s, the estimated right ventricular systolic pressure is 29 mmHg plus right atrial pressure. There is normal estimated pulmonary pressure by tricuspid regurgitation velocity and right atrial pressure. The pulmonic valve is normal. No pulmonic regurgitation is present on color flow. Masses, Effusion, Shunts There is no pericardial effusion. The inferior vena cava is normal sized, respiratory size variation greater than 50%. MEASUREMENTS AND CALCULATIONS 2-D Measurements and LV Function: LVID (d) 4.4 cm Planimetered EF 63 % LVID (s) 2.7 cm LV FS% (2D) ? 39 % IVS (d) ??1.2 cm HR ?55 bpm LVPW (d) 1.3 cm LA Vol index ?24 ml/m2 Ao Sinus 3.6 cm RA Vol index ?14 ml/m2 Asc Ao ?? 3.7 cm RA area ? 12 cm? ? ? LA ? 4.2 cm RV Max 4C (d) ?? 2.6 cm Diastology: Mitral E Peak 0.68 m/s A Peak 1.20 m/s E/A ?0.6 DT ? 310 msec Aortic Valve: Vmax 1.3 m/s Max PG 7 mmHg Mitral Valve: MVA ?2.4 cm? ? ? MV P 1/2 90 msec Tricuspid Valve and estimated PA pressures: TR Vmax 2.7 m/s TR maxG 29 mmHg . This study was interpreted by an [facility] accredited facility. ??Final ?? Procedure Note Sergei Bryant MD - 11/21/2023 ECHOCARDIOGRAM ARVID Mer MCGUIRE : 1940 83 years Study Date: 11/21/2023 12:52:45 PM Gender: M BP: 130/80 mmHg Height: 170.00 cm BSA: 1.94 m? ? ? Weight: 82.00 kg Tech: HCLOÉ Referring MD: CORDELL ACEVES Site: [facility] Reading Location: [facility] Patient Location: Procedure: Limited 2D , Color Doppler and Limited Spectral Doppler. Indication for study: Presistent Afib, HTN, CHF Cardiac Rhythm: Regular.Study quality: Fair. Final Impressions: Limited Echocardiogram performed 1. Normal left ventricular size, mildly increased wall thickness, normalglobal systolic function, calculated EF of 63 %. 2. Mildly enlarged left atrium. 3. The aortic valve is trileaflet and sclerotic, no stenosis and noregurgitation. Comparison Compared to prior exam report: - The left ventricular function has increased. - Mitral regurgitation has decreased. Chamber Sizes and Function Normal left ventricular size, mildly increased wall thickness, normalglobal systolic function, calculated EF of 63 %. Left atrial size ismildly enlarged. Right ventricular cavity size is normal, global systolicRV function is normal. RV wall thickness is normal. The right atrium isnormal. Right atrial volume index is 14 ml/m? ? ?. Right atrial area is 12cm? ? ?. The pulmonary artery is of normal size and origin. The sinus ofValsalva is normal sized. The ascending aorta is normal sized. Valves, RV Pressures and Diastolic Function The aortic valve is trileaflet and sclerotic, no stenosis and noregurgitation. The mitral valve is normal in structure, mild mitralregurgitation. The tricuspid valve is normal in structure. Tricuspidregurgitation is trace. The tricuspid regurgitant velocity is 2.7 m/s, theestimated right ventricular systolic pressure is 29 mmHg plus right atrialpressure. There is normal estimated pulmonary pressure by tricuspidregurgitation velocity and right atrial pressure. The pulmonic valve isnormal. No pulmonic regurgitation is present on color flow. Masses, Effusion, Shunts There is no pericardial effusion. The inferior vena cava is normal sized,respiratory size variation greater than 50%. MEASUREMENTS AND CALCULATIONS 2-D Measurements and LV Function: LVID (d) 4.4 cm Planimetered EF 63 % LVID (s) 2.7 cm LV FS% (2D) 39 % IVS (d) 1.2 cm HR 55 bpm LVPW (d) 1.3 cm LA Vol index 24 ml/m2 Ao Sinus 3.6 cm RA Vol index 14 ml/m2 Asc Ao 3.7 cm RA area 12 cm? ? ? LA 4.2 cm RV Max 4C (d) 2.6 cm Diastology: Mitral E Peak 0.68 m/s A Peak 1.20 m/s E/A 0.6 DT 310 msec Aortic Valve: Vmax 1.3 m/s Max PG 7 mmHg Mitral Valve: MVA 2.4 cm? ? ? MV P 1/2 90 msec Tricuspid Valve and estimated PA pressures: TR Vmax 2.7 m/s TR maxG 29 mmHg . This study was interpreted by an [facility] accredited facility. Final Cordell Aceves MD ECHO ORD * EKG 12 LEAD (11/21/2023) Only the most recent of2 resultswithin the time period is included. Faye SANTOS EKG ORD from Last 3 Months Advance Directives * Full Code (Latest Code Status on File) Date Activated Date Inactivated Comments 08/30/2023 3:14 PM 09/02/2023 3:34 PM Question Answer Comments Code Status Discussion: Reviewed Preferences Care Teams Accounts Manager Relationship Specialty Start Date End Date Sara Laureano, PAKamilahC [address] [place] [address] PCP - General Physician Button Sewer Hand 08/30/23
--- OUTSIDE RECORDS SUMMARY | 2023-12-20 22:41 | XMS_ITS | Encounter Summary ---
Author Organization [place] Address [address] [place] [address]. [place] [address] Care Team Providers Care Hydrogen Treater Name Role Phone [facility], [place] Primary Care Provider Pilo Cameron Primary Care Provider [phone] Kristel Hull RN Unavailable Unavailable Elder Thorpe MD Unavailable Unavailable Weight, Kiran Valdes MD Unavailable Maggy Lindsey RN Unavailable Eliecer Aceves RN Unavailable Elder Thorpe MD Unavailable Unavailable Elder Thorpe MD Unavailable Unavailable Duyen Santoro Unavailable Reason for Visit * Reason Onset Date Comments Other 09/12/2012 Encounter Details Date Type Department Care Team ([facility] st Contact Info) Description 09/12/2012 Telephone [phone] [facility] Medical Oncology [address] [place] [id number] Chris Armstrong MD [address] [place] [address] Other Social History Tobacco Use Types [...] would like to talk to her about [phone] documented in this encounter Plan of Treatment Not on file documented as of this encounter Visit Diagnoses Not on filedocumented in this encounter Care Teams Hydrogen Treater Relationship Specialty Start Date End Date [facility], [facility] [address] [place] [address] PCP - General 01/24/13 02/04/13 Pilo Cameron [address] [address] PCP - General Family Practice 02/05/13 Elder Thorpe MD NO INFO AVAILABLE 03/13/2022 PCP - Assigned PCP 03/29/14 06/25/18 Kristel Hull, RN Continuity Pile Driving Superintendent 10/09/14 11/09/15 Elder Thorpe MD Referring Physician Oncology 10/13/14 08/04/20 Jesus, Kiran Valdes MD 9[address] [place] [address] Urology 10/13/14 Maggy Lindsey, RN Registered Nurse 11/10/15 03/28/17 Eliecer Aceves, RN Registered Nurse 03/29/17 06/19/18 Elder Thorpe MD NO INFO AVAILABLE 03/13/2022 Assigned PCP 03/29/14 11/09/18 Duyen Santoro PA 909 [facility] Urology [place], [place] [address] Assigned Surgical Provider 02/20/21 08/11/22 documented as of this encounter
--- OUTSIDE RECORDS SUMMARY | 2023-12-20 22:41 | XMS_ITS | Encounter Summary ---
Author Organization [place] Address [address] [place] [address] Care Team Providers Care Meteorology Professor Name Role Phone [facility], [place] [place] Primary Care Provider Pilo Cameron Primary Care Provider [phone] Kristel Hull RN Unavailable Unavailable Elder Thorpe MD Unavailable Unavailable Weight, Kiran Valdes MD Unavailable Maggy Lindsey RN Unavailable [phone] Eliecer Aceves RN Unavailable [phone] Elder Thorpe MD Unavailable Unavailable Elder Thorpe MD Unavailable Unavailable Duyen Santoro Unavailable Encounter Details Date Type Department Care Team (Late st Contact Info) Description 09/13/[address] [place] [address] Chris Armstrong MD [address] [place] [address] Social History Tobacco Use Types Packs/Day [...] on filedocumented in this encounter Care Teams Meteorology Professor Relationship Specialty Start Date End Date Clinic, [facility] [address] [place] [address] PCP - General 01/24/13 02/04/13 Pilo Cameron [address] [id number] PCP - General Family Practice 02/05/13 Elder Thorpe MD NO INFO AVAILABLE 03/13/2022 PCP - Assigned PCP 03/29/14 06/25/18 Kristel Hull RN Continuity Diet Technician Registered 10/09/14 11/09/15 Elder Thorpe MD Referring Physician Oncology 10/13/14 08/04/20 Jesus, Kiran Valdes MD 9 [place] [address] Urology 10/13/14 Maggy Lindsey, RN Registered Nurse 11/10/15 03/28/17 Eliecer Aceves, RN Registered Nurse 03/29/17 06/19/18 Elder Thorpe MD NO INFO AVAILABLE 03/13/2022 Assigned PCP 03/29/14 11/09/18 Duyen Santoro PA 909 [facility] [place] [address] Assigned Surgical Provider 02/20/21 08/11/22 documented as of this encounter
== END 2023-12-20 22:38 | disposition home or self-care (01) ==
LOC: NPINS 22:37
PROVIDERS: PCP Physician Assistant Medical; Visit Provider Internal Medicine Cardiovascular Disease
DX: Z51.81 Encounter for therapeutic drug level monitoring (principal)
CPT/HCPCS: 80151

== ENCOUNTER 2024-01-14 13:27 | Outpatient (CLI) | payer OTHER, SELFPAY ==
--- OUTSIDE RECORDS SUMMARY | 2024-01-14 13:29 | XMS_ITS | Encounter Summary ---
Author Organization [place] Address [address] [place] [address] Care Team Providers Care Breed To Wean Production Technician Name Role Phone [facility], [place] Primary Care Provider Pilo Cameron Primary Care Provider [phone] Kristel Hull RN Unavailable Unavailable Elder Thorpe MD Unavailable Unavailable Weight, Kiran Valdes MD Unavailable Maggy Lindsey RN Unavailable [phone] Eliecer Aceves RN Unavailable [phone] Elder Thorpe MD Unavailable Unavailable Elder Thorpe MD Unavailable Unavailable Duyen Santoro Unavailable [phone] Encounter Details Date Type Department Care Team (Late st Contact Info) Description 09/19/2012 External Order Results [address] [place] [phone] Abstract, Provider Social History Tobacco Use Types [...] on filedocumented in this encounter Care Teams Breed To Wean Production Technician Relationship Specialty Start Date End Date [facility], [facility] [address] [place] [address] PCP - General 01/24/13 02/04/13 Pilo Cameron [facility] [address] [place] [address] [id number] PCP - General Family Practice 02/05/13 Elder Thorpe MD NO INFO AVAILABLE 03/13/2022 PCP - Assigned PCP 03/29/14 06/25/18 Kristel Hull RN Continuity Mult Au Matic Operator 10/09/14 11/09/15 Elder Thorpe MD Referring Physician Oncology 10/13/14 08/04/20 Kiran Lee MD [address] [place] [id number] Urology 10/13/14 Maggy Lindsey, RN Registered Nurse 11/10/15 03/28/17 Eliecer Aceves, RN Registered Nurse 03/29/17 06/19/18 Elder Thorpe MD NO INFO AVAILABLE 03/13/2022 Assigned PCP 03/29/14 11/09/18 Duyen Santoro PA 9 [facility] Urology [place], [place] [address] Assigned Surgical Provider 02/20/21 08/11/22 documented as of this encounter
--- OUTSIDE RECORDS SUMMARY | 2024-01-14 13:29 | XMS_ITS | Encounter Summary ---
Author Organization [place] Address [address] [place] [address] Care Team Providers Care Psychological Science Professor Name Role Phone Pilo Cameron Primary Care Provider [phone] Elder Thorpe MD Unavailable Unavailable Weight, Kiran Valdes MD Unavailable Duyen Santoro Unavailable [phone] Encounter Details Date Type Department Care Team [...] on filedocumented in this encounter Care Teams Psychological Science Professor Relationship Specialty Start Date End Date Pilo Cameron [place] [address] [address] [employer] [place], [place] [phone] PCP - General Family Practice 02/05/13 Elder Thorpe MD [address] [address] Referring Physician Oncology 10/13/14 08/04/20 Weight, Kiran Valdes MD 9 [place], [place] [address] Urology 10/13/14 Duyen Santoro PA 9 [facility] Urology [place], [place] [address] Assigned Surgical Provider 02/20/21 08/11/22 documented as of this encounter
--- OUTSIDE RECORDS SUMMARY | 2024-01-14 13:29 | XMS_ITS ---
Author Organization [place] Address [address] [place] [address] Care Team Providers Care Personnel Adviser Name Role Phone Pilo Cameron Primary Care Provider [phone] Weight, Kiran Valdes MD Unavailable Active Problems [...] treatments are documented for this patient in [facility]. Treatments may have been administered in another system.
--- OUTSIDE RECORDS SUMMARY | 2024-01-14 13:29 | XMS_ITS | Clinical Summary ---
Author Organization [facility] Address [place], [place] [address] Care Team Providers Care Railway Shunter Name Role Phone Sara Laureano PA-C Primary Care Provider [phone] Allergies Active Allergy Reactions Criticality Noted Date Comments Cyclobenzaprine *Unknown 08/30/2023 Menthol Rash Low 08/12/2012 Topical Medications Medication Sig Dispensed Refills Start Date End Date Status cyanocobalamin, vitamin B-12, (VITAMIN B-12 ORAL) Take 1 Tablet by mouth once daily if needed (when remembers). Active metoprolol succinate (TOPROL XL) 50 mg sustained-release tabletIndications:Per sistent atrial fibrillation (HC),Essential hypertension,Chronic systolic heart failure (HC) Take 1 Tablet (50 mg) by mouth once daily. 90 Tablet 1 10/22/2023 Active sacubitril-valsartan (ENTRESTO) 24-26 mg tabletIndications:HFr EF (heart failure with reduced ejection fraction) (HC) Take 1 Tablet by mouth two times daily. 180 Tablet 10/22/2023 Active spironolactone (ALDACTONE) 25 mg tabletIndications:HFr EF (heart failure with reduced ejection fraction) (HC) Take 0.5 Tablets (12.5 mg) by mouth once daily in the morning. 45 Tablet 1 10/22/2023 Active apixaban (Eliquis) 5 mg tabletIndications:Atr ial flutter with rapid ventricular response (HC) Take 1 Tablet (5 mg) by mouth two times daily. 180 Tablet 1 10/22/2023 Active Active Problems Problem Noted Date Diagnosed Date Atrial fibrillation with RVR 08/30/2023 HFrEF (heart failure with reduced ejection fract ion) 08/30/2023 History of bladder cancer 08/30/2023 Encounters Date Type Department Care Team Description 12/25/2023 Telephone [facility] [address] [place] [address] Cordell Aceves MD Results (Amio level) 12/06/2023 Telephone [facility] [address] [address] Cordell Aceves MD Medication Management 11/22/2023 Telephone [facility] [address] [address] Cordell Aceves MD Medication Management (Multaq griffin check.) 11/21/2023 2:00 PM CDT Office Visit [address] [place] [id number] Faye Vasquez PA Follow Up (2 month f/u echo prior) 11/21/2023 1:00 PM CDT Orders Only [address] [place] [id number] 1 scan: (1-Ord) ECHO TTE LIMITED WO CONTRAST W COLOR W LTD DOPPLER ([id number]) 11/21/2023 Orders Only [address] [place] [id number] Raf Shen 1 scan: (1-Ord) [facility] WH: EKG final signed 11/21/23 11/21/2023 Travel 10/22/[address] [place] [id number] Arturo Acosta MD Refill Request from Last 3 Months Family History Medical [...] for age 50+ (1 of 2) 1992 RSV vaccine for adults or pr egnancy (1 - 1-dose 60+ series) 2002 Medicare Wellness for age 65+ 10/14/2007 COVID-19 vaccine series ( season) 2023 03/23/2021, 07/27/2020, 06/30/2020 Influenza for age 65+ [...] Atrial flutter with rapid ventricular response (HC) from Last 3 Months Results * ECHO TTE LIMITED WO CONTRAST W COLOR W LTD DOPPLER (11/21/2023 12:56 PM CDT) EJECTION FRACTION 63 % PEAK TR VELOCITY 2.7 m/s LVEDD 4.4 cm Anatomical Region Laterality Modality Ultrasound 11/21/2023 12:5 2 PM CDT Narrative 11/21/2023 4:29 PM CDT ECHOCARDIOGRAM ARVMCKENZIE Mer VASQUEZZabrina ? Accession#: ?? [id number] : ?1940 83 years Study Date: ?? 11/21/2023 12:52:45 PM Gender: M ?BP: ? 130/80 mmHg Height: 170.00 cm ?BSA: ?1.94 m? ? ? Weight: 82.00 kg ? Tech: ? NWA ? Referring MD: CORDELL ACEVES Site: ? [facility] - [facility] Reading Location: [facility] Patient Location: Procedure: Limited 2D , Color [...] . This study was interpreted by an [facility] accredited facility. ??Final ?? Procedure Note Sergei Bryant MD - 11/21/2023 ECHOCARDIOGRAM ALIS MCGUIRE : 1940 83 years Study Date: 11/21/2023 12:52:45 PM Gender: M BP: 130/80 mmHg Height: 170.00 cm BSA: 1.94 m? ? ? Weight: 82.00 kg Tech: TOMMYA Referring MD: CORDELL ACEVES Site: [facility] Reading Location: [facility] Patient Location: Procedure: Limited 2D , Color [...] . This study was interpreted by an [facility] accredited facility. Final Cordell Aceves MD ECHO ORD * EKG 12 LEAD (11/21/2023) Faye SANTOS EKG ORD from Last 3 Months Advance Directives * Full Code (Latest Code Status on File) Date Activated Date Inactivated Comments 08/30/2023 3:14 PM 09/02/2023 3:34 PM Question Answer Comments Code Status Discussion: Reviewed Preferences Care Teams Railway Shunter Relationship Specialty Start Date End Date Sara Laureano PA-C [address] [place], [place] [address] [address] PCP - General Physician Activities Therapist 08/30/23
--- OUTSIDE RECORDS SUMMARY | 2024-01-14 13:29 | XMS_ITS | Clinical Summary ---
Author Organization [place] Address [address] [place] [address] Care Team Providers Care City Superintendent Of Schools Name Role Phone Pilo Cameron Primary Care Provider [phone] Weight, Kiran Valdes MD Unavailable Allergies Active Allergy Reactions Criticality Noted Date Comments Menthol (Topical Analgesic) Rash Low 08/13/19 13 Medications Medication Sig Dispensed Refills Start Date End Date Status Cyanocobalamin (VITAMIN B-12) 2500 MCG tabletIndication s:Malignant neoplasm of urinary bladder, unspecified site,Vitamin B12 deficiency (non anaemic) Place 2,500 mcg [...] ST Respiratory Rate 16 05/21/2019 10:56 AM WIRE COINER Oxygen Saturation 95% 05/21/2019 10:56 AM WIRE COINER Inhaled Oxygen Concentration - - Weight 79.4 kg (175 lb) 02/10/2021 9:50 AM CDT Height 170.2 cm (5' 7) 02/10/2021 9:50 AM CDT Body Mass Index 27.41 02/10/2021 9:50 AM CDT Plan of Treatment Health Maintenance Due Date Last Done Comments ADVANCE CARE PLANNING 1940 ANNUAL REVIEW OF HM ORDERS 1940 DTAP/TDAP/TD IMMUNIZATION (1 - Tdap) 10/14/1967 ZOSTER IMMUNIZATION (1 of 2) 1992 FALL RISK ASSESSMENT 10/14/2007 MEDICARE ANNUAL WELLNESS VISIT 10/14/2007 Pneumococcal Vaccine: 65+ Years (1 of 1 - PCV) 10/14/2007 RSV VACCINE (1 - 1-dose 75+ series) 2017 PHQ-2 (once per calendar year) 2023 02/10/2021, 08/07/2016, 02/07/2016, Additional history exists COVID-19 Vaccine ( - season) 2023 07/27/2020, 06/30/2020 INFLUENZA VACCINE (#1) 2023 COLONOSCOPY Discontinued 03/29/2017, [...] (Cologuard) Discontinued Medical Devices Implanted Type Area Fish Conservationist Device Identifier Shelf Expiration Date Model / Serial / Lot Parietex Composite Parastomal Mesh Implanted:Qty: 1 on 12/02/2015 by Rocky Sands MD at [facility] Mesh N/A: Abdomen COVIDIEN 08/20/2018 PCOPM20 / / [id number] Stent Ureteral Dbl Pigtail Inlay [id number] Implanted:Qty: 1 on 08/14/2012 by Salvador Yoo MD at [facility] Left: Ureter [employer] 04/21/2017 [id number] / / [id number] Stent Urinary Diversion Percflex Set [id number] W/Gw Implanted:Qty: 1 on 01/24/2013 by Ana Madrid MD at [facility] [employer] 10/20/2016 160-210 / / [id number] Mesh Symbotex Composite Stex Round 12cm Sym12 Implanted:Qty: 1 on 12/02/2015 by Rocky Sands MD at [facility] N/A: Abdomen COVIDIEN 01/21/2020 [id number] / / [id number] Description:RInsed mesh impl ant per Covidien Rep recommendations: sterile 0.9% normal saline from 9566-4930 hours. Saline lot: [id number], expiration date: 10/20/2018. This implant is NOT tissue. Procedures Procedure Name Priority Date/Time Associated Diagnosis Comments CT CHEST ABDOMEN PELVIS W/O CONTRAST Routine 02/04/2018 9:22 AM CDT Bladder tumor COLONOSCOPY Routine 03/29/2017 12:52 PM WIRE COINER from Last 3 Months or Most Recently [...] nodules. ANAM DIAZ MD Elder Thorpe MD [facility] [place]LES * COLONOSCOPY (03/29/2017 12:52 PM WIRE COINER) COLONOSCOPY [facility] Patient Name: Alis Mcguire ?Procedure Date: 03/29/2017 [...] monitored continuously. The ?Olympus Adult Colonoscope Model #CF-QG633F, ?Endora#122, SN#[id number] was introduced through the ?anus and advanced [...] Procedure Code(s): ? --- Professional --- ? 74382, Colonoscopy, flexible; with removal of tumor(s), polyp(s), or ? other lesion(s) by snare technique Diagnosis Code(s): ? --- Professional --- ? 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 Z86.010, Personal history of colonic polyps ? K57.30, Diverticulosis of large intestine without perforation or abscess ? without bleeding CPT copyright 2016 [employer]. All rights reserved. The codes documented in this report are preliminary and upon technical training coordinator review may be revised to meet current compliance requirements. _ Ever Motley MD 03/29/2017 2:35:40 PM I was physically present for the entire viewing portion of the exam. Ever Motley MD Number of Addenda: 0 Note Initiated On: 03/29/2017 12:52 PM MRN: ?[id number] Procedure Date: ? 03/29/2017 12:52:56 PM Scope Withdrawal Time: 0 hours 7 minutes 45 seconds Total Procedure Duration: 0 hours 17 minutes 46 seconds Estimated Blood Loss: ? Scope In: 2:06:33 PM Scope Out: 2:24:19 PM RADIOLOGY RESULTS 03/29/2017 12:5 2 PM WIRE COINER Pilo Cameron PROCEDURES RADIOLOGY RESULTS from Last 3 Months or Most Recently Relevant to Health Maintenance Advance Directives For more information, please contact: [phone] * Full Code (Latest Code Status on File) Date Activated Date Inactivated Comments 01/24/2013 7:26 PM 01/30/2013 9:10 PM * Full Code Date Activated Date Inactivated Comments 08/14/2012 6:44 PM 08/16/2012 3:20 PM * Full Code Date Activated Date Inactivated Comments 08/14/2012 5:40 PM 08/14/2012 6:44 PM Care Teams City Superintendent Of Schools Relationship Specialty Start Date End Date Pilo Cameron [address] [address] PCP - General Family Practice 02/05/13 Weight, Kiran Valdes MD [address] [place], [place] [address] Urology 10/13/14
--- OUTSIDE RECORDS SUMMARY | 2024-01-14 13:29 | XMS_ITS | Referral Summary ---
Author Organization [facility] Address [address] [place] [address] Care Team Providers Care Supervisor Refining Name Role Phone Pilo Cameron Primary Care Provider + [phone] Weight, Kiran Valdes MD Unavailable [phone] Allergies Active Allergy Reactions Criticality Noted Date [...] ST Respiratory Rate 16 05/21/2019 10:56 AM GOLF COURSE MECHANIC Oxygen Saturation 95% 05/21/2019 10:56 AM GOLF COURSE MECHANIC Inhaled Oxygen Concentration - - Weight 79.4 kg (175 lb) 02/10/2021 9:50 AM CDT Height 170.2 cm (5' 7) 02/10/2021 9:50 AM CDT Body Mass Index 27.41 02/10/2021 9:50 AM CDT Plan of Treatment Not on file Medical Devices Implanted Type Area Fire Sprinkler Fitter Device Identifier Shelf Expiration Date Model / Serial / Lot Parietex Composite Parastomal Mesh Implanted:Qty: 1 on 12/02/2015 by Rocky Sands MD at [facility] Mesh N/A: Abdomen COVIDIEN 08/20/2018 PCOPM20 / / [id number] Stent Ureteral Dbl Pigtail Inlay [id number] Implanted:Qty: 1 on 08/14/2012 by Salvador Yoo MD at [facility] Left: Ureter [employer]-UROLOGIC 04/21/2017 [id number] / / [id number] Stent Urinary Diversion Percflex Set [id number] W/Gw Implanted:Qty: 1 on 01/24/2013 by Ana Madrid MD at [facility] [employer] 10/20/2016 160-210 / / [id number] Mesh Symbotex Composite Stex Round 12cm Sym12 Implanted:Qty: 1 on 12/02/2015 by Rocky Sands MD at [facility] N/A: Abdomen COVIDIEN 01/21/2020 SYM12 / / [id number] Description:RInsed mesh impl ant per Covidien Rep recommendations: sterile 0.9% normal saline from 1656-8096 hours. Saline lot: [id number], expiration date: 10/20/2018. This implant is NOT tissue. Procedures Procedure Name Priority Date/Time Associated Diagnosis Comments CT CHEST ABDOMEN PELVIS W/O CONTRAST Routine 02/04/2018 9:22 AM CDT Bladder tumor COLONOSCOPY Routine 03/29/2017 12:52 PM GOLF COURSE MECHANIC from Last 3 Months or Most Recently [...] CT ORDERABLES * COLONOSCOPY (03/29/2017 12:52 PM GOLF COURSE MECHANIC) COLONOSCOPY [facility] Patient Name: Alis Mcguire ?Procedure Date: 03/29/2017 [...] and ?oxygen saturations were monitored continuously. The ?[employer] Thin brick Adult Colonoscope Model #CF-JW435N, ?Endora#122, SN#[id number] was introduced through the ?anus and advanced [...] Procedure Code(s): ? --- Professional --- ? 44607, Colonoscopy, flexible; with removal of tumor(s), polyp(s), or ? other lesion(s) by snare technique Diagnosis Code(s): ? --- Professional --- ? 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 Z86.010, Personal history of colonic polyps ? K57.30, Diverticulosis of large intestine without perforation or abscess ? without bleeding CPT copyright 2016 [employer]. All rights reserved. The codes documented in this report are preliminary and upon licensing manager review may be revised to meet current compliance requirements. _ Ever Motley MD 03/29/2017 2:35:40 PM I was physically present for the entire viewing portion of the exam. Ever Motley MD Number of Addenda: 0 Note Initiated On: 03/29/2017 12:52 PM MRN: ?[id number] Procedure Date: ? 03/29/2017 12:52:56 PM Scope Withdrawal Time: 0 hours 7 minutes 45 seconds Total Procedure Duration: 0 hours 17 minutes 46 seconds Estimated Blood Loss: ? Scope In: 2:06:33 PM Scope Out: 2:24:19 PM RADIOLOGY RESULTS 03/29/2017 12:5 2 PM GOLF COURSE MECHANIC Pilo Cameron PROCEDURES RADIOLOGY RESULTS from Last 3 Months or Most Recently Relevant to Health Maintenance Advance Directives For more information, please contact: [phone] * Full Code (Latest Code Status on File) Date Activated Date Inactivated Comments 01/24/2013 7:26 PM 01/30/2013 9:10 PM * Full Code Date Activated Date Inactivated Comments 08/14/2012 6:44 PM 08/16/2012 3:20 PM * Full Code Date Activated Date Inactivated Comments 08/14/2012 5:40 PM 08/14/2012 6:44 PM Care Teams Supervisor Refining Relationship Specialty Start Date End Date Pilo Cameron [address] [address] PCP - General Family Practice 02/05/13 Weight, Kiran Valdes MD [address] [place] [address] Urology 10/13/14
--- OUTSIDE RECORDS SUMMARY | 2024-01-14 13:29 | XMS_ITS | Encounter Summary ---
Author Organization [place] Address [address] [place] [address] Care Team Providers Care Radio Engineer Name Role Phone [facility], [place] Primary Care Provider Pilo Cameron Primary Care Provider [phone] Kristel Hull RN Unavailable Unavailable Elder Thorpe MD Unavailable Unavailable Weight, Kiran Valdes MD Unavailable Maggy Lindsey RN Unavailable [phone] Eliecer Aceves RN Unavailable [phone] Elder Thorpe MD Unavailable Unavailable Elder Thorpe MD Unavailable Unavailable Duyen Santoro Unavailable [phone] Encounter Details Date Type Department Care Team (Late st Contact Info) Description 10/02/2012 External Order Results [address] [place] [address] Abstract, Provider Social History Tobacco Use Types [...] Procedure Name Priority Date/Time Associated Diagnosis Comments [facility] GROUP AUDIOMETRIC TESTING Routine 09/24/2012 documented in this encounter Results * GROUP AUDIOMETRIC TESTING (09/24/2012) Provider Abstract PROCEDURES documented in this encounter Visit Diagnoses Not on filedocumented in this encounter Care Teams Radio Engineer Relationship Specialty Start Date End Date Clinic, [facility] [address] [place] [address] PCP - General 01/24/13 02/04/13 Pilo Cameron [address] [address] PCP - General Family Practice 02/05/13 Elder Thorpe MD NO INFO AVAILABLE 03/13/2022 PCP - Assigned PCP 03/29/14 06/25/18 Kristel Hull RN Continuity Airconditioning Drafting Officer 10/09/14 11/09/15 Elder Thorpe MD Referring Physician Oncology 10/13/14 08/04/20 Kiran Lee MD [address] [place] [address] Urology 10/13/14 Maggy Lindsey, RN Registered Nurse 11/10/15 03/28/17 Eliecer Aceves, RN Registered Nurse 03/29/17 06/19/18 Elder Thorpe MD NO INFO AVAILABLE 03/13/2022 Assigned PCP 03/29/14 11/09/18 Duyen Santoro PA [address] [place] [address] [place] [address] Assigned Surgical Provider 02/20/21 08/11/22 documented as of this encounter
--- OUTSIDE RECORDS SUMMARY | 2024-01-14 13:29 | XMS_ITS | Encounter Summary ---
Author Organization [facility] Address [address] [place] [address]. [place] [address] Care Team Providers Care Shade Maker Name Role Phone [facility], [place] Primary Care Provider Pilo Cameron Primary Care Provider [phone] Kristel Hull RN Unavailable Unavailable Elder Thorpe MD Unavailable Unavailable Weight, Kiran Valdes MD Unavailable Maggy Lindsey RN Unavailable Eliecer Aceves RN Unavailable Elder Thorpe MD Unavailable Unavailable Elder Thorpe MD Unavailable Unavailable Duyen Santoro Unavailable Reason for Visit * Reason Onset Date Comments Other 09/12/2012 Encounter Details Date Type Department Care Team ([facility] st Contact Info) Description 09/12/2012 Telephone [id number] [facility] Medical Oncology [address] [place] [address] Chris Armstrong MD [address] [place] [address] Other Social History Tobacco Use Types [...] would like to talk to her about [phone] documented in this encounter Plan of Treatment Not on file documented as of this encounter Visit Diagnoses Not on filedocumented in this encounter Care Teams Shade Maker Relationship Specialty Start Date End Date [facility], [facility] [address] [place] [address] PCP - General 01/24/13 02/04/13 Pilo Cameron [address] [address] PCP - General Family Practice 02/05/13 Elder Thorpe MD NO INFO AVAILABLE 03/13/2022 PCP - Assigned PCP 03/29/14 06/25/18 Kristel Hull, RN Continuity Chemical Lab Technician 10/09/14 11/09/15 Elder Thorpe MD Referring Physician Oncology 10/13/14 08/04/20 Jesus, Kiran Valdes MD [address] [place] [address] Urology 10/13/14 Maggy Lindsey, RN Registered Nurse 11/10/15 03/28/17 Eliecer Aceves, RN Registered Nurse 03/29/17 06/19/18 Elder Thorpe MD NO INFO AVAILABLE 03/13/2022 Assigned PCP 03/29/14 11/09/18 Duyen Santoro PA [address] [facility] Urology [place], [place] [address] Assigned Surgical Provider 02/20/21 08/11/22 documented as of this encounter
--- OUTSIDE RECORDS SUMMARY | 2024-01-14 13:29 | XMS_ITS | Encounter Summary ---
Author Organization [facility] Address [address] [place] [address] Care Team Providers Care Stock Buyer Name Role Phone [facility], [place] Primary Care Provider Pilo Cameron Primary Care Provider [phone] Kristel Hull RN Unavailable Unavailable Elder Thorpe MD Unavailable Unavailable Weight, Kiran Valdes MD Unavailable Maggy Lindsey RN Unavailable [phone] Eliecer Aceves RN Unavailable [phone] Elder Thorpe MD Unavailable Unavailable Eldre Thorpe MD Unavailable Unavailable Duyen Santoro Unavailable Encounter Details Date Type Department Care Team (Late st Contact Info) Description 09/24/2012 External Order Results [address] [place] [address] Abstract, Provider Social History Tobacco Use Types [...] Procedure Name Priority Date/Time Associated Diagnosis Comments [facility] HEARING SCREENING Routine 09/24/2012 documented in this encounter Results * HEARING SCREENING (09/24/2012) Provider Abstract PROCEDURES documented in this encounter Visit Diagnoses Not on filedocumented in this encounter Care Teams Stock Buyer Relationship Specialty Start Date End Date Clinic, [facility] [address] [place], [place] [id number] PCP - General 01/24/13 02/04/13 Pilo Cameron [facility] [address] [place] [address] PCP - General Family Practice 02/05/13 Elder Thorpe MD NO INFO AVAILABLE 03/13/2022 PCP - Assigned PCP 03/29/14 06/25/18 Kristel Hull RN Continuity Special Education Kindergarten Teacher 10/09/14 11/09/15 Elder Thorpe MD Referring Physician Oncology 10/13/14 08/04/20 Kiran Lee MD [address] [place], [place] [address] Urology 10/13/14 Maggy Lindsey, RN Registered Nurse 11/10/15 03/28/17 Eliecer Aceves, RN Registered Nurse 03/29/17 06/19/18 Elder Thorpe MD NO INFO AVAILABLE 03/13/2022 Assigned PCP 03/29/14 11/09/18 Duyen Santoro PA [address] [place] [address] Urology [place], [place] [address] Assigned Surgical Provider 02/20/21 08/11/22 documented as of this encounter
--- OUTSIDE RECORDS SUMMARY | 2024-01-14 13:29 | XMS_ITS | Encounter Summary ---
Author Organization [place] Address [address] [place] [address] Care Team Providers Care Provider Relations Specialist Name Role Phone [facility], [place] Primary Care Provider Pilo Cameron Primary Care Provider [phone] Kristel Hull RN Unavailable Unavailable Elder Thorpe MD Unavailable Unavailable Weight, Kiran Valdes MD Unavailable Maggy Lindsey RN Unavailable Eliecer Aceves RN Unavailable Elder Thorpe MD Unavailable Unavailable Elder Thorpe MD Unavailable Unavailable Duyen Santoro Unavailable Encounter Details Date Type Department Care Team (Late st Contact Info) Description 09/13/[address] [place] [address] Chris Armstrong MD [address] [place] [address] Social History Tobacco Use Types Packs/Day [...] on filedocumented in this encounter Care Teams Provider Relations Specialist Relationship Specialty Start Date End Date Clinic, [facility] [address] [place] [address] PCP - General 01/24/13 02/04/13 Pilo Cameron [address] [id number] PCP - General Family Practice 02/05/13 Elder Thorpe MD NO INFO AVAILABLE 03/13/2022 PCP - Assigned PCP 03/29/14 06/25/18 Kristel Hull RN Continuity Falsework Builder 10/09/14 11/09/15 Elder Thorpe MD Referring Physician Oncology 10/13/14 08/04/20 Jesus, Kiran Valdes MD [address] [place] [address] Urology 10/13/14 Maggy Lindsey, RN Registered Nurse 11/10/15 03/28/17 Eliecer Aceves, RN Registered Nurse 03/29/17 06/19/18 Elder Thorpe MD NO INFO AVAILABLE 03/13/2022 Assigned PCP 03/29/14 11/09/18 Duyen Santoro PA [address] [facility] [place] [address] Assigned Surgical Provider 02/20/21 08/11/22 documented as of this encounter
--- OUTSIDE RECORDS SUMMARY | 2024-01-14 13:29 | XMS_ITS | Encounter Summary ---
Author Organization [place] Address [address] [place] [address]. [place] [address] Care Team Providers Care Industrial Truck Mechanic Name Role Phone Pilo Cameron Primary Care Provider [phone] Kristel Hull RN Unavailable Unavailable Elder Thorpe MD Unavailable Unavailable Weight, Kiran Valdes MD Unavailable [phone] Maggy Lindsey RN Unavailable [phone] Eliecer Aceves RN Unavailable [phone] Elder Thorpe MD Unavailable Unavailable Elder Thorpe MD Unavailable Unavailable Duyen Santoro Unavailable [phone] Encounter Details Date Type Department Care Team (Late st Contact Info) Description 09/26/2013 External Order Results [facility] [place] [address], [address] [facility] [place] [phone] Shaista Farr MD [address] [place] [address] Social History Tobacco Use Types Packs/Day Years [...] on filedocumented in this encounter Care Teams Industrial Truck Mechanic Relationship Specialty Start Date End Date Pilo Cameron [address] [place] [address] PCP - General Family Practice 02/05/13 Elder Thorpe MD NO INFO AVAILABLE 03/13/2022 PCP - Assigned PCP 03/29/14 06/25/18 Kristel Hull RN Continuity Pension Administrator 10/09/14 11/09/15 Edler Thorpe MD Referring Physician Oncology 10/13/14 08/04/20 Jesus, Kiran Valdes MD [address] [place] [address] Urology 10/13/14 Maggy Lindsey, RN Registered Nurse 11/10/15 03/28/17 Eliecer Aceves, RN Registered Nurse 03/29/17 06/19/18 Elder Thorpe MD NO INFO AVAILABLE 03/13/2022 Assigned PCP 03/29/14 11/09/18 Duyen Santoro PA 9 [facility] Urology [place], [place] [address] Assigned Surgical Provider 02/20/21 08/11/22 documented as of this encounter
== END 2024-01-14 13:28 | disposition home or self-care (01) ==
LOC: LAB 13:27
PROVIDERS: PCP Physician Assistant Medical; Visit Provider Internal Medicine Cardiovascular Disease
DX: I48.91 Unspecified atrial fibrillation (principal)
CPT/HCPCS: 36415; 80151

== ENCOUNTER 2024-02-18 10:52 | Outpatient (CLI) | payer OTHER, SELFPAY ==
--- OUTSIDE RECORDS SUMMARY | 2024-02-20 07:47 | XMS_ITS | Encounter Summary ---
Author Organization [facility] Address [facility] [place] [address] Care Team Providers Care Extracorporeal Technician Name Role Phone Pilo Cameron Primary Care Provider Kristel Hull RN Unavailable Unavailable Elder Thorpe MD Unavailable Unavailable Weight, Kiran Valdes MD Unavailable Maggy Lindsey RN Unavailable Eliecer Aceves RN Unavailable Elder Thorpe MD Unavailable Unavailable Elder Thorpe MD Unavailable Unavailable Duyen Santoro Unavailable Encounter Details Date Type Department Care Team (Late st Contact Info) Description 09/26/2013 External Order Results [facility] [place] [address], [address] 610 [facility] [place] [phone] Shaista Farr MD [address] [place] [address] Social History Tobacco Use Types Packs/Day Years Used Date Smoking Tobacco: Former Cigarettes 0.5 50 0 10/22/1962 - 10/22/2012 Smokeless Tobacco: Never Alcohol Use Standard Drinks/Week Comments Yes 0 (1 standard drink = 0.6 oz pur e alcohol) 4 beers daily Sex and Gender Information Value Date Recorded Sex Assigned at Not on file Legal Sex Male 3:31 AM LAST PULLER Gender Identity Not on file Sexual Orientation Not on file documented as of this encounter Plan of Treatment Not on file documented as of this encounter Visit Diagnoses Not on filedocumented in this encounter Care Teams Extracorporeal Technician Relationship Specialty Start Date End Date Pilo Cameron [address] [id number] PCP - General Family Practice 02/05/13 Elder Thorpe MD NO INFO AVAILABLE 03/13/2022 PCP - Assigned PCP 03/29/14 06/25/18 Kristel Hull RN Continuity Consumer Electronic Retail Specialist 10/09/14 11/09/15 Elder Thorpe MD Referring Physician Oncology 10/13/14 08/04/20 Jesus, Kiran Valdes MD [address] [place] [address] Urology 10/13/14 Maggy Lindsey, RN Registered Nurse 11/10/15 03/28/17 Eliecer Aceves, RN Registered Nurse 03/29/17 06/19/18 Elder Thorpe MD NO INFO AVAILABLE 03/13/2022 Assigned PCP 03/29/14 11/09/18 Duyen Santoro PA 9 [facility] Urology [place], [place] [address] Assigned Surgical Provider 02/20/21 08/11/22 documented as of this encounter
--- OUTSIDE RECORDS SUMMARY | 2024-02-20 07:47 | XMS_ITS | Encounter Summary ---
Author Organization [place] Address [address] [place] [address] Care Team Providers Care Locomotive Crane Operator Name Role Phone [facility], Lupillo Francoiston Primary Care Provider Pilo Cameron Primary Care Provider [phone] Kristel Hull RN Unavailable Unavailable Elder Thorpe MD Unavailable Unavailable Weight, Kiran Valdes MD Unavailable Maggy Lindsey RN Unavailable [phone] Eliecer Aceves RN Unavailable [phone] Elder Thorpe MD Unavailable Unavailable Elder Thorpe MD Unavailable Unavailable Duyen Santoro Unavailable [phone] Encounter Details Date Type Department Care Team (Late st Contact Info) Description 09/24/2012 External Order Results [address] [place] [address] Abstract, Provider Social History Tobacco Use Types Packs/Day Years Used Date Smoking Tobacco: Every Day Cigarettes 0.5 50 Smokeless Tobacco: Never Alcohol Use Standard Drinks/Week Comments Yes 0 (1 standard drink = 0.6 oz pur e alcohol) 4 beers daily Sex and Gender Information Value Date Recorded Sex Assigned at Not on file Legal Sex Male 3:31 AM SUPERVISOR FEED MILL Gender Identity Not on file Sexual Orientation Not on file documented as of this encounter Plan of Treatment Not on file documented as of this encounter Procedures Procedure Name Priority Date/Time Associated Diagnosis Comments [facility] HEARING SCREENING Routine 09/24/2012 documented in this encounter Results * HEARING SCREENING (09/24/2012) us Provider Abstract PROCEDURES Final Result documented in this encounter Visit Diagnoses Not on filedocumented in this encounter Care Teams Locomotive Crane Operator Relationship Specialty Start Date End Date Clinic, [facility] [address] [place], [place] [phone] PCP - General 01/24/13 02/04/13 Pilo Cameron [address] [id number] PCP - General Family Practice 02/05/13 Elder Thorpe MD NO INFO AVAILABLE 03/13/2022 PCP - Assigned PCP 03/29/14 06/25/18 Kristel Hull RN Continuity Petroleum Refinery Laborer 10/09/14 11/09/15 Elder Thorpe MD Referring Physician Oncology 10/13/14 08/04/20 Kiran Lee MD 9 [place], [place] [address] Urology 10/13/14 Maggy Lindsey, RN Registered Nurse 11/10/15 03/28/17 Eliecer Aceves, RN Registered Nurse 03/29/17 06/19/18 Elder Thorpe MD NO INFO AVAILABLE 03/13/2022 Assigned PCP 03/29/14 11/09/18 Duyen Santoro PA 9 [facility] [place] [address] Assigned Surgical Provider 02/20/21 08/11/22 documented as of this encounter
--- OUTSIDE RECORDS SUMMARY | 2024-02-20 07:47 | XMS_ITS | Encounter Summary ---
Author Organization [place] Address [facility] [place] [address] Care Team Providers Care Polisher And Sander Name Role Phone [facility], Lupillo Francoiston Primary Care Provider Pilo Cameron Primary Care Provider [phone] Kristel Hull RN Unavailable Unavailable Elder Thorpe MD Unavailable Unavailable Weight, Kiran Valdes MD Unavailable [phone] Maggy Lindsey RN Unavailable Eliecer Aceves RN Unavailable Elder Thorpe MD Unavailable Unavailable Elder Thorpe MD Unavailable Unavailable Duyen Santoro Unavailable Reason for Visit * Reason Onset Date Comments Other 09/12/2012 Encounter Details Date Type Department Care Team ([facility] st Contact Info) Description 09/12/[id number] [facility] Medical Oncology [address] [place] [id number] Chris Armstrong MD [address] [place] [address] Other Social History Tobacco Use Types Packs/Day Years Used Date Smoking Tobacco: Every Day Cigarettes 0.5 50 Smokeless Tobacco: Never Alcohol Use Standard Drinks/Week Comments Yes 0 (1 standard drink = 0.6 oz pur e alcohol) 4 beers daily Sex and Gender Information Value Date Recorded Sex Assigned at Not on file Legal Sex Male 3:31 AM TRIAGE REGISTER NURSE Gender Identity Not on file Sexual Orientation Not on file documented as of this encounter Miscellaneous Notes * Telephone Encounter - Chris Armstrong MD - 09/24/2012 12:48 PM CDT hes done with is colo * Telephone Encounter - Erika España, ERICA - 09/23/2012 11:00 AM CDT This is [...] would like to talk to her about [phone] documented in this encounter Plan of Treatment Not on file documented as of this encounter Visit Diagnoses Not on filedocumented in this encounter Care Teams Polisher And Sander Relationship Specialty Start Date End Date [facility], [facility] [address] [place] [address] PCP - General 01/24/13 02/04/13 Pilo Cameron [address] [address] PCP - General Family Practice 02/05/13 Elder Thorpe MD NO INFO AVAILABLE 03/13/2022 PCP - Assigned PCP 03/29/14 06/25/18 Kristel Hull RN Continuity Customer Data Technician 10/09/14 11/09/15 Elder Thorpe MD Referring Physician Oncology 10/13/14 08/04/20 Kiran Lee MD 9 [place], [place] [address] Urology 10/13/14 Maggy Lindsey, RN Registered Nurse 11/10/15 03/28/17 Eliecer Aceves, RN Registered Nurse 03/29/17 06/19/18 Elder Thorpe MD NO INFO AVAILABLE 03/13/2022 Assigned PCP 03/29/14 11/09/18 Duyen Santoro PA [address] [place] [address] Urology [place], [place] [address] Assigned Surgical Provider 02/20/21 08/11/22 documented as of this encounter
--- OUTSIDE RECORDS SUMMARY | 2024-02-20 07:47 | XMS_ITS ---
Author Organization [place] Address [address] [place] [address] Care Team Providers Care Rehab Consultant Name Role Phone Pilo Cameron Primary Care Provider [phone] Weight, Kiran Valdes MD Unavailable Active Problems Problem Noted Date Diagnosed Date Ventral hernia 12/02/2015 Vitamin B12 deficiency without anemia 10/07/2014 Overview (02/22/2015): Diagnosis updated by automated process. Provider to review and confirm. Bladder cancer 01/24/2013 CA - bladder cancer 09/23/2012 Overview (01/21/2013): Problem list name updated by automated process. [...] treatments are documented for this patient in [facility]. Treatments may have been administered in another system.
--- OUTSIDE RECORDS SUMMARY | 2024-02-20 07:47 | XMS_ITS | Encounter Summary ---
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 MANAGER PRIVATE Gender Identity Not on file Sexual Orientation Not on file documented as of this encounter Plan of Treatment Not on file documented as of this encounter Visit Diagnoses Not on filedocumented in this encounter Care Teams Advertising Solicitor Relationship Specialty Start Date End Date Pilo Cameron [place] [address] [address] [place], [place] [phone] PCP - General Family Practice 02/05/13 Elder Thorpe MD [place] [address] [place] [address] Referring Physician Oncology 10/13/14 08/04/20 Weight, Kiran Valdes MD 9 [place] [address] Urology 10/13/14 Duyen Santoro PA 909 [facility] [place] [address] Assigned Surgical Provider 02/20/21 08/11/22 documented as of this encounter
--- OUTSIDE RECORDS SUMMARY | 2024-02-20 07:47 | XMS_ITS | Encounter Summary ---
Author Organization [place] Address [address] [place] [address] Care Team Providers Care Secretary Administrative Assistant Name Role Phone [facility], Lupillo Francoiston Primary Care Provider Pilo Cameron Primary Care Provider [phone] Kristel Hull RN Unavailable Unavailable Elder Thorpe MD Unavailable Unavailable Weight, Kiran Valdes MD Unavailable Maggy Lindsey RN Unavailable [phone] Eliecer Aceves RN Unavailable [phone] Elder Thorpe MD Unavailable Unavailable Elder Thorpe MD Unavailable Unavailable Duyen Santoro Unavailable [phone] Encounter Details Date Type Department Care Team (Late st Contact Info) Description 10/02/2012 External Order Results [address] [place] [address] Abstract, Provider Social History Tobacco Use Types Packs/Day Years Used Date Smoking Tobacco: Every Day Cigarettes 0.5 50 Smokeless Tobacco: Never Alcohol Use Standard Drinks/Week Comments Yes 0 (1 standard drink = 0.6 oz pur e alcohol) 4 beers daily Sex and Gender Information Value Date Recorded Sex Assigned at Not on file Legal Sex Male 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 Gender Identity Not on file Sexual Orientation Not on file documented as of this encounter Plan of Treatment Not on file documented as of this encounter Procedures Procedure Name Priority Date/Time Associated Diagnosis Comments [facility] GROUP AUDIOMETRIC TESTING Routine 09/24/2012 documented in this encounter Results * GROUP AUDIOMETRIC TESTING (09/24/2012) us Provider Abstract PROCEDURES Final Result documented in this encounter Visit Diagnoses Not on filedocumented in this encounter Care Teams Secretary Administrative Assistant Relationship Specialty Start Date End Date Clinic, [facility] [address] [place] [address] PCP - General 01/24/13 02/04/13 Pilo Cameron [address] [phone] PCP - General Family Practice 02/05/13 Elder Thorpe MD NO INFO AVAILABLE 03/13/2022 PCP - Assigned PCP 03/29/14 06/25/18 Kristel Hull RN Continuity Instructional Coach 10/09/14 11/09/15 Elder Thorpe MD Referring Physician Oncology 10/13/14 08/04/20 Kiran Lee MD 9 [place] [address] Urology 10/13/14 Maggy Lindsey, RN Registered Nurse 11/10/15 03/28/17 Eliecer Aceves, RN Registered Nurse 03/29/17 06/19/18 Elder Thorpe MD NO INFO AVAILABLE 03/13/2022 Assigned PCP 03/29/14 11/09/18 Duyen Santoro PA 9 [facility] [place] [address] Assigned Surgical Provider 02/20/21 08/11/22 documented as of this encounter
--- OUTSIDE RECORDS SUMMARY | 2024-02-20 07:47 | XMS_ITS | Clinical Summary ---
Author Organization [facility] Address [place], [place] [address] Care Team Providers Care Search Coordinator Name Role Phone Sara Laureano PA-C Primary Care Provider [phone] Allergies Active Allergy Reactions Criticality Noted Date Comments Cyclobenzaprine *Unknown 08/30/2023 Menthol Rash Low 08/12/2012 Topical Medications Medication Sig Dispensed Refills Start Date End Date Status cyanocobalamin, vitamin B-12, (VITAMIN B-12 ORAL) Take 1 Tablet by mouth once daily if needed (when remembers). Active sacubitril-valsart an (ENTRESTO) 24-26 mg tabletIndications: [...] times daily. 180 Tablet 1 10/22/2023 Active sotaloL (BETAPACE) 80 mg tabletIndications: Atrial fibrillation with RVR (HC) Take 0.5 Tablets (40 mg) by mouth every 12 hours. 90 Tablet 2 01/28/2024 Active metoprolol succinate (TOPROL XL) 50 mg sustained-release tabletIndications: Persistent atrial fibrillation (HC),Essential hypertension,Chron ic systolic heart failure (HC) Take 1 Tablet (50 mg) by mouth once daily. 90 Tablet 1 10/22/2023 01/25/2024 Discontinued (*Med complete/Reg imen complete/Lev el of care change) sotaloL (BETAPACE) 80 mg tabletIndications: Atrial fibrillation with RVR (HC) Take 0.5 Tablets (40 mg) by mouth every 12 hours. 30 Tablet 01/25/2024 01/28/2024 Discontinued (Reorder (E-cancel not sent)) Active Problems Problem Noted Date Diagnosed Date Atrial fibrillation with RVR 08/30/2023 HFrEF (heart failure with reduced ejection fract ion) 08/30/2023 History of bladder cancer 08/30/2023 Encounters Date Type Department Care Team Description 01/28/2024 Travel 01/25/2024 Travel 01/16/2024 Telephone [facility] [address] [address] Cordell Aceves MD Results (Labs/) 12/25/2023 Telephone [facility] [address] [address] Cordell Aceves MD Results (Amio level) 12/06/2023 Telephone [facility] [address] [address] Cordell Aceves MD Medication Management 11/22/2023 Telephone [facility] [address] [address] Cordell Aceves MD Medication Management (Multaq griffin check.) 11/21/2023 2:00 PM CDT Office Visit [address] Castillo [address] [place] [address] Faye Vasquez PA Follow Up (2 month f/u echo prior) 11/21/2023 1:00 PM CDT Orders Only [address] Castillo [address] [place] [address] 1 scan: (1-Ord) ECHO TTE LIMITED WO CONTRAST W COLOR W LTD DOPPLER ([id number]) 11/21/2023 Orders Only [address] Castillo [address] [place] [address] Raf Shen 1 scan: (1-Ord) [facility] WH: EKG final signed 11/21/23 11/21/2023 Travel from Last 3 Months Family History Medical [...] very rare Social Connections Answer Date Recorded Do you often feel lonely or isolated from those around you? 0 08/30/2023 Financial Resource Strain Answer Date R ecorded Difficulty of Paying Living Expenses 3 08/31/2023 Difficulty of Paying Living Expenses Not on file 08/31/2023 Food Insecurity Answer Date Recorded Do you worry your food will run out before you are able to buy more? 1 08/30/2023 Transportation Needs Answer Date Record ed Does lack of transportation keep you from medica l appointments? 1 08/30/2023 Does lack of transportation keep you from work, meetings or getting things that you need? 1 08/30/2023 Housing Stability Answer Date Recorded What is your housing situation today? 1 08/30/2023 Sex and Gender Information Value [...] 1992 Medicare Wellness for age 65+ 10/14/2007 RSV vaccine for adults or pr egnancy (1 - 1-dose 75+ series) 2017 COVID-19 vaccine series ( season) 2023 03/23/2021, 07/27/2020, 06/30/2020 Influenza for age 65+ 12/23/2023 BMI (ht and wt on same day) for age 18+ 11/20/2024 11/21/2023, 09/13/2023 Procedures Procedure Name Priority Date/Time Associated Diagnosis Comments EKG 12 LEAD Routine 01/28/2024 8:08 AM CDT Atrial fibrillation with RVR (HC) EKG 12 LEAD Routine 01/25/2024 10:10 AM CDT Atrial fibrillation with RVR (HC) ECHO TTE LIMITED WO CONTRAST W COLOR W LTD DOPPLER Routine 11/21/2023 12:56 PM CDT Persistent atrial fibrillation (HC) Essential hypertension Chronic systolic heart failure (HC) EKG 12 LEAD Routine 11/21/2023 Atrial flutter with rapid ventricular response (HC) from Last 3 Months Results * EKG 12 LEAD (01/28/2024 8:08 AM CDT) Only the most recent of3 resultswithin the time period is included. Interpretation Sinus bradycardia with 1st degree A-V block Nonspecific ST and T wave abnormality Abnormal ECG When compared with ECG of 25-Jan-2024 10:10, (Unconfirmed) T wave inversion less evident in Lateral leads Ventricular Rate 58 BPM Atrial Rate 58 BPM P-R Interval 220 ms QRS Duration 82 ms QT 442 ms QTc 433 ms P [place] 92 degrees R [place] -12 degrees T [place] 74 degrees 01/28/2024 8:08 AM CDT 01/29/2024 8:41 AM CDT Cordell Aceves MD EKG ORD * ECHO TTE LIMITED WO CONTRAST W COLOR W LTD DOPPLER (11/21/2023 12:56 PM CDT) EJECTION FRACTION 63 % PEAK TR VELOCITY 2.7 m/s LVEDD 4.4 cm Anatomical Region Laterality Modality Ultrasound 11/21/2023 12:5 2 PM CDT Narrative 11/21/2023 4:29 PM CDT ECHOCARDIOGRAM ARVID Mer MCGUIRE ? Accession#: ?? [id number] : ?1940 83 years Study Date: ?? 11/21/2023 12:52:45 PM Gender: M ?BP: ? 130/80 mmHg Height: 170.00 cm ?BSA: ?1.94 m? ? ? Weight: 82.00 kg ? Tech: ? NWA ? Referring MD: CORDELL ACEVES Site: ? [facility] [place] [facility] [place]: Procedure: Limited 2D , Color [...] . This study was interpreted by an [facility] accredited facility. ??Final ?? Procedure Note Sergei Bryant MD - 11/21/2023 ECHOCARDIOGRAM ALIS MCGUIRE : 1940 83 years Study Date: 11/21/2023 12:52:45 PM Gender: M BP: 130/80 mmHg Height: 170.00 cm BSA: 1.94 m? ? ? Weight: 82.00 kg Tech: NWA Referring MD: CORDELL ACEVES Site: [facility] Reading Location: [facility] Patient Location: Procedure: Limited 2D , Color [...] . This study was interpreted by an [facility] accredited facility. Final Cordell Aceves MD ECHO ORD from Last 3 Months Advance Directives * Full Code (Latest Code Status on File) Date Activated Date Inactivated Comments 08/30/2023 3:14 PM 09/02/2023 3:34 PM Question Answer Comments Code Status Discussion: Reviewed Preferences Care Teams Search Coordinator Relationship Specialty Start Date End Date Sara Laureano PA-C [address] [place] [address] PCP - General Physician Video Coordinator 08/30/23
--- OUTSIDE RECORDS SUMMARY | 2024-02-20 07:47 | XMS_ITS | Encounter Summary ---
Author Organization [place] Address [address] [place] [address] Care Team Providers Care Debt Collection Specialist Name Role Phone [facility], Lupillo Francoiston Primary Care Provider Pilo Cameron Primary Care Provider [phone] Kristel Hull RN Unavailable Unavailable Elder Thorpe MD Unavailable Unavailable Weight, Kiran Valdes MD Unavailable [phone] Maggy Lindsye RN Unavailable [phone] Eliecer Aceves RN Unavailable [phone] Elder Thorpe MD Unavailable Unavailable Elder Thorpe MD Unavailable Unavailable Duyen Santoro Unavailable [phone] Encounter Details Date Type Department Care Team (Late st Contact Info) Description 09/19/2012 External Order Results [address] [place] [address] Abstract, Provider Social History Tobacco Use Types Packs/Day Years Used Date Smoking Tobacco: Every Day Cigarettes 0.5 50 Smokeless Tobacco: Never Alcohol Use Standard Drinks/Week Comments Yes 0 (1 standard drink = 0.6 oz pur e alcohol) 4 beers daily Sex and Gender Information Value Date Recorded Sex Assigned at Not on file Legal Sex Male 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 [address] [place], [place] [phone] PCP - General 01/24/13 02/04/13 Pilo Cameron [address] [address] PCP - General Family Practice 02/05/13 Elder Thorpe MD NO INFO AVAILABLE 03/13/2022 PCP - Assigned PCP 03/29/14 06/25/18 Kristel Hull RN Continuity Pediatric Care Coordinator 10/09/14 11/09/15 Elder Thorpe MD Referring Physician Oncology 10/13/14 08/04/20 Kiran Lee MD [address] [place] [id number] Urology 10/13/14 Maggy Lindsey, RN Registered Nurse 11/10/15 03/28/17 Eliecer Aceves, RN Registered Nurse 03/29/17 06/19/18 Elder Thorpe MD NO INFO AVAILABLE 03/13/2022 Assigned PCP 03/29/14 11/09/18 Duyen Santoro PA 9 [facility] Urology [place], [place] [address] Assigned Surgical Provider 02/20/21 08/11/22 documented as of this encounter
--- OUTSIDE RECORDS SUMMARY | 2024-02-20 07:47 | XMS_ITS | Clinical Summary ---
Author Organization [facility] Address [address] [place] [address] Care Team Providers Care Dish Room Worker Name Role Phone Pilo Cameron Primary Care Provider + [phone] Weight, Kiran Valdes MD Unavailable Allergies Active Allergy Reactions Criticality Noted Date Comments Menthol (Topical Analgesic) Rash Low 08/13/19 13 Medications Cyanocobalamin (VITAMIN B-12) 2500 MCG tabletIndicati ons:Malignant neoplasm of urinary bladder, unspecified site (H),Vitamin B12 deficiency (non anaemic) Place 2,500 mcg under the tongue daily 30 tablet 6 10/08/19 15 Active Additional Information Patient taking differently: 5,000 mcgSublingual DAILY, Reported on 08/07/2016 NO ACTIVE MEDICATIONS 013 Discontinued (Stopped Prior to Admission or erroneus entry) Active [...] on file Legal 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 Gender Identity Not on file Sexual Orientation Not on file Last Filed Vital Signs Vital Sign Reading Time Taken Comments Blood Pressure 165/91 02/10/2021 9:50 AM CDT Pulse 90 02/10/2021 9:50 AM CDT Temperature 36.4 ??C (97.5 ??F) 05/21/2019 10:[address] Respiratory Rate 16 05/21/2019 10:56 AM SOIL SCIENCE PROFESSOR Oxygen Saturation 95% 05/21/2019 10:56 AM SOIL SCIENCE PROFESSOR Inhaled Oxygen Concentration - - Weight 79.4 [...] (Cologuard) Discontinued Medical Devices Implanted Type Area Posting Clerk Device Identifier Shelf Expiration Date Model / Serial / Lot Parietex Composite Parastomal Mesh Implanted:Qty: 1 on 12/02/2015 by Rocky Sands MD at [facility] Mesh N/A: Abdomen COVIDIEN 08/20/2018 [id number] / / [id number] Stent Ureteral Dbl Pigtail Inlay [id number] Implanted:Qty: 1 on 08/14/2012 by Salvador Yoo MD at [facility] Left: Ureter [employer]-UROLOGIC 04/21/2017 [id number] / / [id number] Stent Urinary Diversion Percflex Set [id number] W/Gw Implanted:Qty: 1 on 01/24/2013 by Ana Madrid MD at [facility] Replenish [employer] 10/20/2016 160-210 / / [id number] Mesh Symbotex Composite Stex Round 12cm Sym12 Implanted:Qty: 1 on 12/02/2015 by Rocky Sands MD at [facility] N/A: Abdomen COVIDIEN 01/21/2020 [id number] / / [id number] Description:RInsed mesh impl ant per Covidien Rep recommendations: sterile 0.9% normal saline from 7731-6581 hours. Saline lot: [id number], expiration date: 10/20/2018. This implant is NOT tissue. Procedures Procedure Name Priority Date/Time Associated Diagnosis Comments CT CHEST ABDOMEN PELVIS W/O CONTRAST Routine 02/04/2018 9:22 AM CDT Bladder tumor COLONOSCOPY Routine 03/29/2017 12:52 PM SOIL SCIENCE PROFESSOR from Last 3 Months or Most Recently [...] Stable small lung nodules. ANAM DIAZ MD us Elder Thorpe MD IMG CT ORDERABLES Final Result * COLONOSCOPY (03/29/2017 12:52 PM SOIL SCIENCE PROFESSOR) COLONOSCOPY [facility] Patient Name: Alis Mcguire ?Procedure Date: [...] mg IV, Fentanyl 150 micrograms IV. The ? provided 19 minutes of 1:1 continuous bedside [...] monitored continuously. The ?Olympus Adult Colonoscope Model #CF-BY947D, ?Endora#122, SN#[id number] was introduced through the ?anus and advanced [...] Procedure Code(s): ? --- Professional --- ? 88176, Colonoscopy, flexible; with removal of tumor(s), polyp(s), or ? other lesion(s) by snare technique Diagnosis Code(s): ? --- Professional --- ? 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 Z86.010, Personal history of colonic polyps ? K57.30, Diverticulosis of large intestine without perforation or abscess ? without bleeding CPT copyright 2016 [employer]. All rights reserved. The codes documented in this report are preliminary and upon research animal attendant review may be revised to meet current compliance requirements. _ Ever Motley MD 03/29/2017 2:35:40 PM I was physically present for the entire viewing portion of the exam. Ever Motley MD Number of Addenda: 0 Note Initiated On: 03/29/2017 12:52 PM MRN: ?[id number] Procedure Date: ? 03/29/2017 12:52:56 PM Scope Withdrawal Time: 0 hours 7 minutes 45 seconds Total Procedure Duration: 0 hours 17 minutes 46 seconds Estimated Blood Loss: ? Scope In: 2:06:33 PM Scope Out: 2:24:19 PM RADIOLOGY RESULTS 03/29/2017 12:5 2 PM SOIL SCIENCE PROFESSOR Pilo Cameron PROCEDURES Final Result RADIOLOGY RESULTS from Last 3 Months or Most Recently Relevant to Health Maintenance Insurance [facility] MEDICARE ADVANTAGE [facility] MEDICARE ADVANTAGE Advance Directives For more information, please contact: [phone] * Full Code (Latest Code Status on File) Date Activated Date Inactivated Comments 01/24/2013 7:26 PM 01/30/2013 9:10 PM * Full Code Date Activated Date Inactivated Comments 08/14/2012 6:44 PM 08/16/2012 3:20 PM * Full Code Date Activated Date Inactivated Comments 08/14/2012 5:40 PM 08/14/2012 6:44 PM Care Teams Dish Room Worker Relationship Specialty Start Date End Date Pilo Cameron [address] [address] PCP - General Family Practice 02/05/13 Weight, Kiran Valdes MD [address] [place] [address] Urology 10/13/14
--- OUTSIDE RECORDS SUMMARY | 2024-02-20 07:47 | XMS_ITS | Encounter Summary ---
Author Organization [facility] Address [address] [place] [address] Care Team Providers Care Studio Set Up Worker Name Role Phone [facility], Lupillo Francoiston Primary Care Provider Pilo Cameron Primary Care Provider [phone] Kristel Hull RN Unavailable Unavailable Elder Thorpe MD Unavailable Unavailable Weight, Kiran Valdes MD Unavailable Maggy Lindsey RN Unavailable [phone] Eliecer Aceves RN Unavailable [phone] Elder Thorpe MD Unavailable Unavailable Elder Thorpe MD Unavailable Unavailable Duyen Santoro Unavailable Encounter Details Date Type Department Care Team (Late st Contact Info) Description 09/13/[address] [place] [address] Chris Armstrong MD [address] [place] [address] Social History Tobacco Use Types Packs/Day Years Used Date Smoking Tobacco: Every Day Cigarettes 0.5 50 Smokeless Tobacco: Never Alcohol Use Standard Drinks/Week Comments Yes 0 (1 standard drink = 0.6 oz pur e alcohol) 4 beers daily Sex and Gender Information Value Date Recorded Sex Assigned at Not on file 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 Gender Identity Not on file Sexual Orientation [...] on filedocumented in this encounter Care Teams Studio Set Up Worker Relationship Specialty Start Date End Date Clinic, [facility] [address] [place] [address] PCP - General 01/24/13 02/04/13 Pilo Cameron [address] [id number] PCP - General Family Practice 02/05/13 Elder Thorpe MD NO INFO AVAILABLE 03/13/2022 PCP - Assigned PCP 03/29/14 06/25/18 Kristel Hull RN Continuity Court Usher 10/09/14 11/09/15 Elder Thorpe MD Referring Physician Oncology 10/13/14 08/04/20 Weight, Kiran Valdes MD [address] [place] [address] [id number] Urology 10/13/14 Maggy Lindsey, RN Registered Nurse 11/10/15 03/28/17 Eliecer Aceves, RN Registered Nurse 03/29/17 06/19/18 Elder Thorpe MD NO INFO AVAILABLE 03/13/2022 Assigned PCP 03/29/14 11/09/18 Duyen Santoro PA [address] [facility] [place] [address] Assigned Surgical Provider 02/20/21 08/11/22 documented as of this encounter
--- OUTSIDE RECORDS SUMMARY | 2024-02-20 07:47 | XMS_ITS | Referral Summary ---
Author Organization [facility] Address [address] [place] [address] Care Team Providers Care Rn Endocrinology Name Role Phone Pilo Cameron Primary Care Provider + [phone] Weight, Kiran Valdes MD Unavailable [phone] Allergies Active Allergy Reactions Criticality Noted Date [...] on file Legal Sex Male 3:31 AM LICENSED PRACTICAL VOCATIONAL NURSE Gender Identity Not on file Sexual Orientation Not on file Last Filed Vital Signs Vital Sign Reading Time Taken Comments Blood Pressure 165/91 02/10/2021 9:50 AM CDT Pulse 90 02/10/2021 9:50 AM CDT Temperature 36.4 ??C (97.5 ??F) 05/21/2019 10:[address] Respiratory Rate 16 05/21/2019 10:56 AM LICENSED PRACTICAL VOCATIONAL NURSE Oxygen Saturation 95% 05/21/2019 10:56 AM LICENSED PRACTICAL VOCATIONAL NURSE Inhaled Oxygen Concentration - - Weight 79.4 kg (175 lb) 02/10/2021 9:50 AM CDT Height 170.2 cm (5' 7) 02/10/2021 9:50 AM CDT Body Mass Index 27.41 02/10/2021 9:50 AM CDT Plan of Treatment Not on file Medical Devices Implanted Type Area Research Interviewer Device Identifier Shelf Expiration Date Model / Serial / Lot Parietex Composite Parastomal Mesh Implanted:Qty: 1 on 12/02/2015 by Rocky Sands MD at [facility] Mesh N/A: Abdomen COVIDIEN 08/20/2018 PCOPM20 / / [id number] Stent Ureteral Dbl Pigtail Inlay [id number] Implanted:Qty: 1 on 08/14/2012 by Salvador Yoo MD at [facility] Left: Ureter [employer]-UROLOGIC 04/21/2017 [id number] / / [id number] Stent Urinary Diversion Percflex Set [id number] W/Gw Implanted:Qty: 1 on 01/24/2013 by Ana Madrid MD at [facility] [employer] 10/20/2016 160-210 / / [id number] Mesh Symbotex Composite Stex Round 12cm Sym12 Implanted:Qty: 1 on 12/02/2015 by Rocky Sands MD at [facility] N/A: Abdomen COVIDIEN 01/21/2020 SYM12 / / [id number] Description:RInsed mesh impl ant per Covidien Rep recommendations: sterile 0.9% normal saline from 7583-4826 hours. Saline lot: [id number], expiration date: 10/20/2018. This implant is NOT tissue. Procedures Procedure Name Priority Date/Time Associated Diagnosis Comments CT CHEST ABDOMEN PELVIS W/O CONTRAST Routine 02/04/2018 9:22 AM CDT Bladder tumor COLONOSCOPY Routine 03/29/2017 12:52 PM LICENSED PRACTICAL VOCATIONAL NURSE from Last 3 Months or Most Recently [...] Final Result * COLONOSCOPY (03/29/2017 12:52 PM LICENSED PRACTICAL VOCATIONAL NURSE) [facility] COLONOSCOPY [facility] Patient Name: Alis Mcguire ?Procedure Date: 03/29/2017 12:52 PM ? Date of : 1940 ?Admit Type: Outpatient Age: 76 ? Gender: Male Attending MD: vEer Motley MD ?Total Sedation Time: Instrument Name: 122 ? Procedure: ?Colonoscopy Indications: ?High risk colon cancer surveillance: Personal ?history of colonic polyps Providers: ?Ever Motley MD (Doctor) Referring MD: ? Pilo Camreon MD (Referring MD) Medicines: ?Midazolam 2 mg [...] monitored continuously. The ?Olympus Adult Colonoscope Model #CF-YE207F, ?Endora#122, SN#[id number] was introduced through the ?anus and advanced [...] Procedure Code(s): ? --- Professional --- ? 71711, Colonoscopy, flexible; with removal of tumor(s), polyp(s), or ? other lesion(s) by snare technique Diagnosis Code(s): ? --- Professional --- ? 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 Z86.010, Personal history of colonic polyps ? K57.30, Diverticulosis of large intestine without perforation or abscess ? without bleeding CPT copyright 2016 [employer]. All rights reserved. The codes documented in this report are preliminary and upon termite treater helper review may be revised to meet current compliance requirements. _ Ever Motley MD 03/29/2017 2:35:40 PM I was physically present for the entire viewing portion of the exam. Ever Motley MD Number of Addenda: 0 Note Initiated On: 03/29/2017 12:52 PM MRN: ?[id number] Procedure Date: ? 03/29/2017 12:52:56 PM Scope Withdrawal Time: 0 hours 7 minutes 45 seconds Total Procedure Duration: 0 hours 17 minutes 46 seconds Estimated Blood Loss: ? Scope In: 2:06:33 PM Scope Out: 2:24:19 PM RADIOLOGY RESULTS 03/29/2017 12:5 2 PM LICENSED PRACTICAL VOCATIONAL NURSE Pilo Cameron PROCEDURES Final Result RADIOLOGY RESULTS from Last 3 Months or Most Recently Relevant to Health Maintenance Insurance [facility] MEDICARE ADVANTAGE [employer] MEDICARE ADVANTAGE Advance Directives For more information, please contact: [phone] * Full Code (Latest Code Status on File) Date Activated Date Inactivated Comments 01/24/2013 7:26 PM 01/30/2013 9:10 PM * Full Code Date Activated Date Inactivated Comments 08/14/2012 6:44 PM 08/16/2012 3:20 PM * Full Code Date Activated Date Inactivated Comments 08/14/2012 5:40 PM 08/14/2012 6:44 PM Care Teams Rn Endocrinology Relationship Specialty Start Date End Date Pilo Cameron [address] [address] PCP - General Family Practice 02/05/13 Weight, Kiran Valdes MD [address] [place] [address] Urology 10/13/14
== END 2024-02-18 10:53 | disposition home or self-care (01) ==
LOC: NFLDREF 02-20 07:46
PROVIDERS: PCP Physician Assistant Medical; Referring Provider Physician Assistant Medical; Visit Provider Physician Assistant Medical
DX: R53.83 Other fatigue (principal); G47.33 Obstructive sleep apnea (adult) (pediatric); J43.9 Emphysema, unspecified
CPT/HCPCS: 82306; 82607; 82728; 84443

== ENCOUNTER 2024-03-07 09:58 | Outpatient (CLI) | payer OTHER, SELFPAY ==
--- OUTSIDE RECORDS SUMMARY | 2024-03-07 10:02 | XMS_ITS | Clinical Summary ---
Author Organization [facility] Address [place], [place] [address] Care Team Providers Care Parts Counterman Name Role Phone Sara Laureano PA-C Primary Care Provider [phone] Allergies Active Allergy Reactions Criticality Noted Date Comments Cyclobenzaprine *Unknown 08/30/2023 Menthol Rash Low 08/12/2012 Topical Medications Medication Sig Dispensed Refills Start Date End Date Status cyanocobalamin, vitamin B-12, (VITAMIN B-12 ORAL) Take 1 Tablet by mouth once daily if needed (when remembers). Active sacubitril-valsartan (ENTRESTO) 24-26 mg tabletIndications:HFr EF (heart failure with reduced ejection fraction) (HC) Take 1 Tablet by mouth two times daily. 180 Tablet 1 10/22/2023 Active spironolactone (ALDACTONE) 25 mg tabletIndications:HFr EF (heart failure with reduced ejection fraction) (HC) Take 0.5 Tablets (12.5 mg) by mouth once daily in the morning. 45 Tablet 1 10/22/2023 Active apixaban (Eliquis) 5 mg tabletIndications:Atr ial flutter with rapid ventricular response (HC) Take 1 Tablet (5 mg) by mouth two times daily. 180 Tablet 1 10/22/2023 Active sotaloL (BETAPACE) 80 mg tabletIndications:Atr ial fibrillation with RVR (HC) Take 0.5 Tablets (40 mg) by mouth every 12 hours. 90 Tablet 2 01/28/2024 Active Active Problems Problem Noted Date Diagnosed Date Atrial fibrillation with RVR 08/30/2023 HFrEF (heart failure with reduced ejection fract ion) 08/30/2023 History of bladder cancer 08/30/2023 Encounters Date Type Department Care Team Description 01/28/2024 Travel 01/25/2024 Travel 01/16/2024 Telephone [facility] [address] [facility] [address] [place] [address] Cordell Aceves MD Results (Labs/) 12/25/2023 Telephone [facility] [address] [place] [id number] [place] [address] Cordell Aceves MD Results (Amio level) 12/06/2023 Telephone [facility] [address] [facility] [address] [place] [address] Cordell Aceves MD Medication Management from Last 3 Months Family History Medical [...] AM CDT Atrial fibrillation with RVR (HC) from Last 3 Months Results * EKG 12 LEAD (01/28/2024 8:08 AM CDT) Only the most recent of2 resultswithin the time period is included. Interpretation Sinus bradycardia with 1st degree A-V block Nonspecific ST and T wave abnormality Abnormal ECG When compared with ECG of 25-Jan-2024 10:10, (Unconfirmed) T wave inversion less evident in Lateral leads Ventricular Rate 58 BPM Atrial Rate 58 BPM P-R Interval 220 ms QRS Duration 82 ms QT 442 ms QTc 433 ms P [place] 92 degrees R [place] -12 degrees T [place] 74 degrees 01/28/2024 8:08 AM CDT 01/29/2024 8:41 AM CDT Cordell Aceves MD EKG ORD from Last 3 Months Advance Directives * Full Code (Latest Code Status on File) Date Activated Date Inactivated Comments 08/30/2023 3:14 PM 09/02/2023 3:34 PM Question Answer Comments Code Status Discussion: Reviewed Preferences Care Teams Parts Counterman Relationship Specialty Start Date End Date Sara Laureano PA-C [address] [place] [address] PCP - General Physician Light Equipment Operator 08/30/23
--- OUTSIDE RECORDS SUMMARY | 2024-03-07 10:02 | XMS_ITS | Encounter Summary ---
Author Organization [facility] Address [address] [place] [address] Care Team Providers Care Wood Cabinetmaker Name Role Phone [facility], Lupillo Francoiston Primary Care Provider Pilo Cameron Primary Care Provider [phone] Kristel Hull RN Unavailable Unavailable Elder Thorpe MD Unavailable Unavailable Weight, Kiran Valdes MD Unavailable Maggy Lindsey RN Unavailable [phone] Eliecer Aceves RN Unavailable [phone] Elder Thorpe MD Unavailable Unavailable Elder Thorpe MD Unavailable Unavailable Duyen Santoro Unavailable [phone] Encounter Details Date Type Department Care Team (Late st Contact Info) Description 10/02/2012 External Order Results [address] [place] [address] Abstract, Provider Social History Tobacco Use Types Packs/Day Years Used Date Smoking Tobacco: Every Day Cigarettes 0.5 50 Smokeless Tobacco: Never Alcohol Use Standard Drinks/Week Comments Yes 0 (1 standard drink = 0.6 oz pur e alcohol) 4 beers daily Sex and Gender Information Value Date Recorded Sex Assigned at Not on file Legal Sex Male 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 Gender Identity Not on file Sexual Orientation [...] on filedocumented in this encounter Care Teams Wood Cabinetmaker Relationship Specialty Start Date End Date Clinic, [facility] [address] [place] [address] PCP - General 01/24/13 02/04/13 Pilo Cameron [address] [id number] PCP - General Family Practice 02/05/13 Elder Thorpe MD NO INFO AVAILABLE 03/13/2022 PCP - Assigned PCP 03/29/14 06/25/18 Kristel Hull RN Continuity Parking Attendant 10/09/14 11/09/15 Elder Thorpe MD Referring Physician Oncology 10/13/14 08/04/20 Kiran Lee MD [address] [place] [address] Urology 10/13/14 Maggy Lindsey, RN Registered Nurse 11/10/15 03/28/17 Eliecer Aceves, RN Registered Nurse 03/29/17 06/19/18 Elder Thorpe MD NO INFO AVAILABLE 03/13/2022 Assigned PCP 03/29/14 11/09/18 Duyen Santoro PA [address] [facility] [place] [address] Assigned Surgical Provider 02/20/21 08/11/22 documented as of this encounter
--- OUTSIDE RECORDS SUMMARY | 2024-03-07 10:02 | XMS_ITS | Referral Summary ---
Author Organization [facility] Address [address] [place] [address] Care Team Providers Care Metal Stamper Name Role Phone Pilo Cameron Primary Care Provider + [phone] Weight, Kiran Valdes MD Unavailable Allergies Active [...] on file Legal Sex Male 3:31 AM OPERATIONS MANAGEMENT TRAINEE Gender Identity Not on file Sexual Orientation Not on file Last Filed Vital Signs Vital Sign Reading Time Taken Comments Blood Pressure 165/91 02/10/2021 9:50 AM CDT Pulse 90 02/10/2021 9:50 AM CDT Temperature 36.4 ??C (97.5 ??F) 05/21/2019 10:[address] Respiratory Rate 16 05/21/2019 10:56 AM OPERATIONS MANAGEMENT TRAINEE Oxygen Saturation 95% 05/21/2019 10:56 AM OPERATIONS MANAGEMENT TRAINEE Inhaled Oxygen Concentration - - Weight 79.4 kg (175 lb) 02/10/2021 9:50 AM CDT Height 170.2 cm (5' 7) 02/10/2021 9:50 AM CDT Body Mass Index 27.41 02/10/2021 9:50 AM CDT Plan of Treatment Not on file Medical Devices Implanted Type Area Lease Purchase Driver Device Identifier Shelf Expiration Date Model / Serial / Lot Parietex Composite Parastomal Mesh Implanted:Qty: 1 on 12/02/2015 by Rocky Sands MD at [facility] Mesh N/A: Abdomen COVIDIEN 08/20/2018 PCOPM20 / / [id number] Stent Ureteral Dbl Pigtail Inlay [id number] Implanted:Qty: 1 on 08/14/2012 by Salvador Yoo MD at [facility] Left: Ureter [employer]-UROLOGIC 04/21/2017 [id number] / / [id number] Stent Urinary Diversion Percflex Set [id number] W/Gw Implanted:Qty: 1 on 01/24/2013 by Ana Madrid MD at [facility] [employer] 10/20/2016 160-210 / / [id number] Mesh Symbotex Composite Stex Round 12cm Sym12 Implanted:Qty: 1 on 12/02/2015 by Rocky Sands MD at [facility] N/A: Abdomen COVIDIEN 01/21/2020 SYM12 / / [id number] Description:RInsed mesh impl ant per Covidien Rep recommendations: sterile 0.9% normal saline from 8075-4261 hours. Saline lot: [id number], expiration date: 10/20/2018. This implant is NOT tissue. Procedures Procedure Name Priority Date/Time Associated Diagnosis Comments CT CHEST ABDOMEN PELVIS W/O CONTRAST Routine 02/04/2018 9:22 AM CDT Bladder tumor COLONOSCOPY Routine 03/29/2017 12:52 PM OPERATIONS MANAGEMENT TRAINEE from Last 3 Months or Most Recently [...] Final Result * COLONOSCOPY (03/29/2017 12:52 PM OPERATIONS MANAGEMENT TRAINEE) [facility] COLONOSCOPY [facility] Patient Name: Alis Mcguire ?Procedure Date: 03/29/2017 [...] monitored continuously. The ?Olympus Adult Colonoscope Model #CF-QR979K, ?Endora#122, SN#[id number] was introduced through the ?anus and advanced [...] Procedure Code(s): ? --- Professional --- ? 20426, Colonoscopy, flexible; with removal of tumor(s), polyp(s), or ? other lesion(s) by snare technique Diagnosis Code(s): ? --- Professional --- ? 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 Z86.010, Personal history of colonic polyps ? K57.30, Diverticulosis of large intestine without perforation or abscess ? without bleeding CPT copyright 2016 [employer]. All rights reserved. The codes documented in this report are preliminary and upon boiler room operator review may be revised to meet current compliance requirements. _ Ever Motley MD 03/29/2017 2:35:40 PM I was physically present for the entire viewing portion of the exam. Ever Motley MD Number of Addenda: 0 Note Initiated On: 03/29/2017 12:52 PM MRN: ?[id number] Procedure Date: ? 03/29/2017 12:52:56 PM Scope Withdrawal Time: 0 hours 7 minutes 45 seconds Total Procedure Duration: 0 hours 17 minutes 46 seconds Estimated Blood Loss: ? Scope In: 2:06:33 PM Scope Out: 2:24:19 PM RADIOLOGY RESULTS 03/29/2017 12:5 2 PM OPERATIONS MANAGEMENT TRAINEE Pilo Cameron PROCEDURES Final Result RADIOLOGY RESULTS from Last 3 Months or Most Recently Relevant to Health Maintenance Insurance [facility] MEDICARE ADVANTAGE [employer] MEDICARE ADVANTAGE Advance Directives For more information, please contact: [phone] * Full Code (Latest Code Status on File) Date Activated Date Inactivated Comments 01/24/2013 7:26 PM 01/30/2013 9:10 PM * Full Code Date Activated Date Inactivated Comments 08/14/2012 6:44 PM 08/16/2012 3:20 PM * Full Code Date Activated Date Inactivated Comments 08/14/2012 5:40 PM 08/14/2012 6:44 PM Care Teams Metal Stamper Relationship Specialty Start Date End Date Pilo Cameron [address] [address] PCP - General Family Practice 02/05/13 Weight, Kiran Valdes MD [address] [place] [address] Urology 10/13/14
--- OUTSIDE RECORDS SUMMARY | 2024-03-07 10:02 | XMS_ITS | Encounter Summary ---
Author Organization [place] Address [address] [place] [address] Care Team Providers Care Rug Hooker Hand Name Role Phone [facility], Lupillo Francoiston Primary Care Provider Pilo Cameron Primary Care Provider [phone] Kristel Hull RN Unavailable Unavailable Elder Thorpe MD Unavailable Unavailable Weight, Kiran Valdes MD Unavailable Maggy Lindsey RN Unavailable Eliecer Aceves RN Unavailable Elder Thorpe MD Unavailable Unavailable Elder Thorpe MD Unavailable Unavailable Duyen Santoro Unavailable [phone] Encounter Details Date Type Department Care Team (Late st Contact Info) Description 09/13/[address] [place] [address] Chris Armstrong MD [address] [place] [address] Social History Tobacco Use Types Packs/Day Years Used Date Smoking Tobacco: Every Day Cigarettes 0.5 50 Smokeless Tobacco: Never Alcohol Use Standard Drinks/Week Comments Yes 0 (1 standard drink = 0.6 oz pur e alcohol) 4 beers daily Sex and Gender Information Value Date Recorded Sex Assigned at Not on file Legal Sex Male 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 CLIP ON SUNGLASSES Gender Identity Not on file Sexual Orientation [...] on filedocumented in this encounter Care Teams Rug Hooker Hand Relationship Specialty Start Date End Date Clinic, [facility] [address] [place] [address] PCP - General 01/24/13 02/04/13 Pilo Cameron [address] [id number] PCP - General Family Practice 02/05/13 Elder Thorpe MD NO INFO AVAILABLE 03/13/2022 PCP - Assigned PCP 03/29/14 06/25/18 Kristel Hull RN Continuity Senior Laboratory Technician 10/09/14 11/09/15 Elder Thorpe MD Referring Physician Oncology 10/13/14 08/04/20 Weight, Kiran Valdes MD [address] [place] [id number] Urology 10/13/14 Maggy Lindsey, RN Registered Nurse 11/10/15 03/28/17 Eliecer Aceves, RN Registered Nurse 03/29/17 06/19/18 Elder Thorpe MD NO INFO AVAILABLE 03/13/2022 Assigned PCP 03/29/14 11/09/18 Duyen Santoro PA [address] [facility] [place] [address] Assigned Surgical Provider 02/20/21 08/11/22 documented as of this encounter
--- OUTSIDE RECORDS SUMMARY | 2024-03-07 10:02 | XMS_ITS ---
Author Organization [place] Address [address] [place] [address] Care Team Providers Care Gunner'S Mate G Name Role Phone Pilo Cameron Primary Care Provider + [phone] Weight, Kiran Valdes MD Unavailable Active Problems [...] treatments are documented for this patient in [facility]. Treatments may have been administered in another system.
--- OUTSIDE RECORDS SUMMARY | 2024-03-07 10:02 | XMS_ITS | Encounter Summary ---
Author Organization [place] Address [facility] [place] [address] Care Team Providers Care Meat Carver Name Role Phone [facility], Lupillo Francoiston Primary Care Provider Pilo Cameron Primary Care Provider [phone] Kristel Hull RN Unavailable Unavailable Elder Thorpe MD Unavailable Unavailable Weight, Kiran Valdes MD Unavailable [phone] Maggy Lindsey RN Unavailable Eliecer Aceves RN Unavailable Elder Thorpe MD Unavailable Unavailable Elder Thorpe MD Unavailable Unavailable Duyen Santoro Unavailable Reason for Visit * Reason Onset Date Comments Other 09/12/2012 Encounter Details Date Type Department Care Team ([facility] st Contact Info) Description 09/12/2012 Telephone [id number] [facility] Medical Oncology [address] [place] [address] Chris Armstrong MD [address] [place] [address] Other Social History Tobacco Use Types Packs/Day Years Used Date Smoking Tobacco: Every Day Cigarettes 0.5 50 Smokeless Tobacco: Never Alcohol Use Standard Drinks/Week Comments Yes 0 (1 standard drink = 0.6 oz pur e alcohol) 4 beers daily Sex and Gender Information Value Date Recorded Sex Assigned at Not on file Legal Sex Male 3:31 AM ROLLER EMBOSSER Gender Identity Not on file Sexual Orientation [...] would like to talk to her about [phone] documented in this encounter Plan of Treatment Not on file documented as of this encounter Visit Diagnoses Not on filedocumented in this encounter Care Teams Meat Carver Relationship Specialty Start Date End Date [facility], [facility] [address] [place] [address] PCP - General 01/24/13 02/04/13 Pilo Cameron [address] [address] PCP - General Family Practice 02/05/13 Elder Thorpe MD NO INFO AVAILABLE 03/13/2022 PCP - Assigned PCP 03/29/14 06/25/18 Kristel Hull RN Continuity Furniture Dipper 10/09/14 11/09/15 Elder Thorpe MD Referring Physician Oncology 10/13/14 08/04/20 Kiran Lee MD 9 [place], [place] [address] Urology 10/13/14 Maggy Lindsey, RN Registered Nurse 11/10/15 03/28/17 Eliecer Aceves, RN Registered Nurse 03/29/17 06/19/18 Elder Thorpe MD NO INFO AVAILABLE 03/13/2022 Assigned PCP 03/29/14 11/09/18 Duyen Santoro PA [address] [place] [address] Urology [place], [place] [address] Assigned Surgical Provider 02/20/21 08/11/22 documented as of this encounter
--- OUTSIDE RECORDS SUMMARY | 2024-03-07 10:02 | XMS_ITS | Clinical Summary ---
Author Organization [place] Address [address] [place] [address] Care Team Providers Care Waiter/Waitress Club Name Role Phone Pilo Cameron Primary Care Provider [phone] Weight, Kiran Valdes MD Unavailable Allergies Active [...] on file Legal Sex Male 3:31 AM CRIMINAL PSYCHOLOGIST Gender Identity Not on file Sexual Orientation Not on file Last Filed Vital Signs Vital Sign Reading Time Taken Comments Blood Pressure 165/91 02/10/2021 9:50 AM CDT Pulse 90 02/10/2021 9:50 AM CDT Temperature 36.4 ??C (97.5 ??F) 05/21/2019 10:[address] Respiratory Rate 16 05/21/2019 10:56 AM CRIMINAL PSYCHOLOGIST Oxygen Saturation 95% 05/21/2019 10:56 AM CRIMINAL PSYCHOLOGIST Inhaled Oxygen Concentration - - Weight 79.4 [...] (Cologuard) Discontinued Medical Devices Implanted Type Area Accountant Auditor Device Identifier Shelf Expiration Date Model / Serial / Lot Parietex Composite Parastomal Mesh Implanted:Qty: 1 on 12/02/2015 by Rocky Sands MD at [facility] Mesh N/A: Abdomen COVIDIEN 08/20/2018 [id number] / / [id number] Stent Ureteral Dbl Pigtail Inlay [id number] Implanted:Qty: 1 on 08/14/2012 by Salvador Yoo MD at [facility] Left: Ureter [employer]-UROLOGIC 04/21/2017 [id number] / / [id number] Stent Urinary Diversion Percflex Set [id number] W/Gw Implanted:Qty: 1 on 01/24/2013 by Ana Madrid MD at [facility] [employer] 10/20/2016 [id number] / / [id number] Mesh Symbotex Composite Stex Round 12cm Sym12 Implanted:Qty: 1 on 12/02/2015 by Rocky Sands MD at [facility] N/A: Abdomen COVIDIEN 01/21/2020 [id number] / / [id number] Description:RInsed mesh impl ant per Covidien Rep recommendations: sterile 0.9% normal saline from 7344-3364 hours. Saline lot: [id number], expiration date: 10/20/2018. This implant is NOT tissue. Procedures Procedure Name Priority Date/Time Associated Diagnosis Comments CT CHEST ABDOMEN PELVIS W/O CONTRAST Routine 02/04/2018 9:22 AM CDT Bladder tumor COLONOSCOPY Routine 03/29/2017 12:52 PM CRIMINAL PSYCHOLOGIST from Last 3 Months or Most Recently [...] Final Result * COLONOSCOPY (03/29/2017 12:52 PM CRIMINAL PSYCHOLOGIST) COLONOSCOPY [facility] Patient Name: Alis Mcguire ?Procedure Date: [...] monitored continuously. The ?Olympus Adult Colonoscope Model #[id number]-NZ077X, ?[place]#122, SN#[id number] was introduced through the ?anus and advanced [...] Procedure Code(s): ? --- Professional --- ? 95073, Colonoscopy, flexible; with removal of tumor(s), polyp(s), or ? other lesion(s) by snare technique Diagnosis Code(s): ? --- Professional --- ? 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 Z86.010, Personal history of colonic polyps ? K57.30, Diverticulosis of large intestine without perforation or abscess ? without bleeding CPT copyright 2016 [employer]. All rights reserved. The codes documented in this report are preliminary and upon events administrative assistant review may be revised to meet current compliance requirements. _ Ever Motley MD 03/29/2017 2:35:40 PM I was physically present for the entire viewing portion of the exam. Ever Motley MD Number of Addenda: 0 Note Initiated On: 03/29/2017 12:52 PM MRN: ?[id number] Procedure Date: ? 03/29/2017 12:52:56 PM Scope Withdrawal Time: 0 hours 7 minutes 45 seconds Total Procedure Duration: 0 hours 17 minutes 46 seconds Estimated Blood Loss: ? Scope In: 2:06:33 PM Scope Out: 2:24:19 PM RADIOLOGY RESULTS 03/29/2017 12:5 2 PM CRIMINAL PSYCHOLOGIST Pilo Cameron PROCEDURES Final Result RADIOLOGY RESULTS from Last 3 Months or Most Recently Relevant to Health Maintenance Insurance [facility] ADVANTAGE [facility] Advance Directives For more information, please contact: [phone] * Full Code (Latest Code Status on File) Date Activated Date Inactivated Comments 01/24/2013 7:26 PM 01/30/2013 9:10 PM * Full Code Date Activated Date Inactivated Comments 08/14/2012 6:44 PM 08/16/2012 3:20 PM * Full Code Date Activated Date Inactivated Comments 08/14/2012 5:40 PM 08/14/2012 6:44 PM Care Teams Waiter/Waitress Club Relationship Specialty Start Date End Date Pilo Cameron [address] [address] PCP - General Family Practice 02/05/13 Weight, Kiran Valdes MD [address] [place] [address] Urology 10/13/14
--- OUTSIDE RECORDS SUMMARY | 2024-03-07 10:02 | XMS_ITS | Encounter Summary ---
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 Gender Identity Not on file Sexual Orientation Not on file documented as of this encounter Plan of Treatment Not on file documented as of this encounter Visit Diagnoses Not on filedocumented in this encounter Care Teams Sales Merchandising Specialist Relationship Specialty Start Date End Date Pilo Cameron [address] [employer] [place], [place] [id number] PCP - General Family Practice 02/05/13 Elder Thorpe MD [address] [place] [address] [place] [address] Referring Physician Oncology 10/13/14 08/04/20 Weight, Kiran Valdes MD 9 [place] [address] Urology 10/13/14 Duyen Santoro PA 909 [facility] [place] [address] Assigned Surgical Provider 02/20/21 08/11/22 documented as of this encounter
--- OUTSIDE RECORDS SUMMARY | 2024-03-07 10:02 | XMS_ITS | Encounter Summary ---
Author Organization [place] Address [address] [place] [address] Care Team Providers Care Associate Software Engineer Name Role Phone [facility], Lupillo Francoiston Primary Care Provider Pilo Cameron Primary Care Provider [phone] Kristel Hull RN Unavailable Unavailable Elder Thorpe MD Unavailable Unavailable Weight, Kiran Valdes MD Unavailable Maggy Lindsey RN Unavailable [phone] Eliecer Aceves RN Unavailable [phone] Elder Thorpe MD Unavailable Unavailable Elder Thorpe MD Unavailable Unavailable Duyen Santoro Unavailable [phone] Encounter Details Date Type Department Care Team (Late st Contact Info) Description 09/19/2012 External Order Results [address] [place] [address] Abstract, Provider Social History Tobacco Use Types Packs/Day Years Used Date Smoking Tobacco: Every Day Cigarettes 0.5 50 Smokeless Tobacco: Never Alcohol Use Standard Drinks/Week Comments Yes 0 (1 standard drink = 0.6 oz pur e alcohol) 4 beers daily Sex and Gender Information Value Date Recorded Sex Assigned at Not on file 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 Gender Identity Not on file Sexual Orientation [...] on filedocumented in this encounter Care Teams Associate Software Engineer Relationship Specialty Start Date End Date Clinic, [facility] [address] [place], [place] [id number] PCP - General 01/24/13 02/04/13 Pilo Cameron [address] [address] PCP - General Family Practice 02/05/13 Elder Thorpe MD NO INFO AVAILABLE 03/13/2022 PCP - Assigned PCP 03/29/14 06/25/18 Kristel Hull RN Continuity Potato Chip Fryer 10/09/14 11/09/15 Elder Thorpe MD Referring Physician Oncology 10/13/14 08/04/20 Kiran Lee MD [address] [place] [id number] Urology 10/13/14 Maggy Lindsey, RN Registered Nurse 11/10/15 03/28/17 Eliecer Aceves, RN Registered Nurse 03/29/17 06/19/18 Elder Thorpe MD NO INFO AVAILABLE 03/13/2022 Assigned PCP 03/29/14 11/09/18 Duyen Santoro PA 9 [facility] Urology [place], [place] [address] Assigned Surgical Provider 02/20/21 08/11/22 documented as of this encounter
--- OUTSIDE RECORDS SUMMARY | 2024-03-07 10:02 | XMS_ITS | Encounter Summary ---
Author Organization [place] Address [address] [place] [address] Care Team Providers Care Interpretive Program Coordinator Name Role Phone [facility], Lupillo Francoiston Primary Care Provider Pilo Cameron Primary Care Provider [phone] Kristel Hull RN Unavailable Unavailable Elder Thorpe MD Unavailable Unavailable Weight, Kiran Valdes MD Unavailable Maggy Lindsey RN Unavailable [phone] Eliecer Aceves RN Unavailable [phone] Elder Thorpe MD Unavailable Unavailable Elder Thorpe MD Unavailable Unavailable Duyen Santoro Unavailable [phone] Encounter Details Date Type Department Care Team (Late st Contact Info) Description 09/24/2012 External Order Results [address] [place] [address] Abstract, Provider Social History Tobacco Use Types Packs/Day Years Used Date Smoking Tobacco: Every Day Cigarettes 0.5 50 Smokeless Tobacco: Never Alcohol Use Standard Drinks/Week Comments Yes 0 (1 standard drink = 0.6 oz pur e alcohol) 4 beers daily Sex and Gender Information Value Date Recorded Sex Assigned at Not on file 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 Gender Identity Not on file Sexual Orientation Not on file documented as of this encounter Plan of Treatment Not on file documented as of this encounter Procedures Procedure Name Priority Date/Time Associated Diagnosis Comments RUST HEARING SCREENING Routine 09/24/2012 documented in this encounter Results * HEARING SCREENING (09/24/2012) us Provider Abstract PROCEDURES Final Result documented in this encounter Visit Diagnoses Not on filedocumented in this encounter Care Teams Interpretive Program Coordinator Relationship Specialty Start Date End Date Clinic, [facility] [address] [place], [place] [phone] PCP - General 01/24/13 02/04/13 Pilo Cameron [address] [id number] PCP - General Family Practice 02/05/13 Elder Thorpe MD NO INFO AVAILABLE 03/13/2022 PCP - Assigned PCP 03/29/14 06/25/18 Kristel Hull RN Continuity Tip Mender 10/09/14 11/09/15 Elder Thorpe MD Referring Physician Oncology 10/13/14 08/04/20 Kiran Lee MD 9 [place], [place] [address] Urology 10/13/14 Maggy Lindsey, RN Registered Nurse 11/10/15 03/28/17 Eliecer Aceves, RN Registered Nurse 03/29/17 06/19/18 Elder Thorpe MD NO INFO AVAILABLE 03/13/2022 Assigned PCP 03/29/14 11/09/18 Duyen Santoro PA 9 [facility] [place] [address] Assigned Surgical Provider 02/20/21 08/11/22 documented as of this encounter
--- OUTSIDE RECORDS SUMMARY | 2024-03-07 10:02 | XMS_ITS | Encounter Summary ---
Author Organization [place] Address [address] [place] [address]. [place] [address] Care Team Providers Care Bonding Agent Name Role Phone Pilo Cameron Primary Care Provider Kristel Hull RN Unavailable Unavailable Elder Thorpe MD Unavailable Unavailable Weight, Kiran Valdes MD Unavailable Maggy Lindsey RN Unavailable Eliecer Aceves RN Unavailable Elder Thorpe MD Unavailable Unavailable Elder Thorpe MD Unavailable Unavailable Duyen Santoro Unavailable Encounter Details Date Type Department Care Team (Late st Contact Info) Description 09/26/2013 External Order Results [facility] [place] [address], [place] [address] [facility] [place] [phone] Shaista Farr MD [address] [place] [address] Social History Tobacco Use Types Packs/Day Years Used Date Smoking Tobacco: Former Cigarettes 0.5 50 0 10/22/1962 - 10/22/2012 Smokeless Tobacco: Never Alcohol Use Standard Drinks/Week Comments Yes 0 (1 standard drink = 0.6 oz pur e alcohol) 4 beers daily Sex and Gender Information Value Date Recorded Sex Assigned at Not on file 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 Gender Identity Not on file Sexual Orientation Not on file documented as of this encounter Plan of Treatment Not on file documented as of this encounter Visit Diagnoses Not on filedocumented in this encounter Care Teams Bonding Agent Relationship Specialty Start Date End Date Pilo Camerno [address] [id number] PCP - General Family Practice 02/05/13 Elder Thorpe MD NO INFO AVAILABLE 03/13/2022 PCP - Assigned PCP 03/29/14 06/25/18 Kristel Hull RN Continuity Chicken Hanger 10/09/14 11/09/15 Elder Thorpe MD Referring Physician Oncology 10/13/14 08/04/20 Jesus, Kiran Valdes MD [address] [place] [address] Urology 10/13/14 Maggy Lindsey, RN Registered Nurse 11/10/15 03/28/17 Eliecer Aceves, RN Registered Nurse 03/29/17 06/19/18 Elder Thorpe MD NO INFO AVAILABLE 03/13/2022 Assigned PCP 03/29/14 11/09/18 Duyen Santoro PA 9 [facility] Urology [place], [place] [address] Assigned Surgical Provider 02/20/21 08/11/22 documented as of this encounter
--- NOTE | 2024-03-07 11:00 | CRLHL7_ITS ---
For Patients: As a result of the Century Cures Act, medical imaging exams and procedure reports are released immediately into your electronic medical record. You may view this report before your referring provider. If you have questions, please contact your health care provider. INDICATION: Pulmonary nodules, TECHNIQUE: CT chest without contrast. COMPARISON: None. FINDINGS: Lungs and Airways: A few scattered indeterminate pulmonary nodules measuring up to 7 millimeters in the right lower lobe with a triangular shaped appearance, axial image 106. No mass or consolidation. No endoluminal lesion. Heart and Mediastinum: The visualized portions of the thyroid are normal. No axillary or supraclavicular lymphadenopathy. No mediastinal, hilar or retrocrural lymphadenopathy. Normal heart size. Normal caliber aorta. Atherosclerotic and coronary artery calcifications. Pleura: The pleural spaces are normal. Abdomen: Left renal cystic focus. Colonic diverticulosis. Bones and soft tissues: Thoracic spondylosis. IMPRESSION: 1. A few scattered indeterminate pulmonary nodules measuring up to 7 millimeters in the right lower lobe. Notes indicate six-month follow-up from prior lung cancer screening chest CT. No prior exams are available for comparison however. Recommend correlation with prior outside exams. If nodules are stable compared to the prior exam recommendations are return to annual lung cancer screening. 2. No mass or consolidation. Please note that all CT scans at this facility use dose modulation, iterative reconstruction, and/or weight-based dosing when appropriate to reduce radiation dose to as low as reasonably achievable. Dictated by Reinaldo Wayne MD @ 03/08/2024 6:56:07 PM (Electronically Signed)
== END 2024-03-07 09:59 | disposition home or self-care (01) ==
LOC: CT 10:00
PROVIDERS: PCP Physician Assistant Medical; Visit Provider Physician Assistant Medical
DX: R91.1 Solitary pulmonary nodule (principal)
CPT/HCPCS: 71250

== ENCOUNTER 2025-01-21 09:31 | Outpatient (CLI) | payer MEDICARE, SELFPAY | END 2025-01-21 09:32 | disposition home or self-care (01) | LOC: WOUND 09:31 | PROVIDERS: PCP Physician Assistant Medical; Visit Provider Nurse Practitioner Family | DX: B02.9 Zoster without complications (principal) | CPT/HCPCS: G0463 ==

== ENCOUNTER 2025-01-29 10:03 | Outpatient (CLI) | payer MEDICARE, SELFPAY | END 2025-01-29 10:04 | disposition home or self-care (01) | LOC: WOUND 10:03 | PROVIDERS: PCP Physician Assistant Medical; Visit Provider Nurse Practitioner Family | DX: B02.9 Zoster without complications (principal) | CPT/HCPCS: G0463 ==

== ENCOUNTER 2025-02-24 10:22 | Outpatient (CLI) | payer MEDICARE, SELFPAY ==
--- NOTE | 2025-02-24 11:00 | CRLHL7_ITS ---
For Patients: As a result of the Century Cures Act, medical imaging exams and procedure reports are released immediately into your electronic medical record. You may view this report before your referring provider. If you have questions, please contact your health care provider. Indication: Lung nodule Technique: Noncontrast CT chest Please note that all CT scans at this facility use dose modulation, iterative reconstruction, and/or weight-based dosing when appropriate to reduce radiation dose to as low as reasonably achievable. Comparison: 03/07/2024 Findings: The thyroid gland is normal. Atherosclerotic changes are present. No intrathoracic adenopathy. Mild right subareolar gynecomastia is present. Lobular contour of the left adrenal gland is stable as is a simple cyst arising from the upper pole of the left kidney. No pleural or pericardial effusion. There is a new irregular cavitary nodule within the left upper lobe which measures 1.7 cm. Linear scarring in the lingula is present. Emphysema. Stable nodule within the right upper lobe posteriorly measures 5.7 millimeters. Unchanged perifissural scarring on the right. Additional stable perifissural nodule in the right perihilar lung. No acute fracture. Chronic mild wedging of upper thoracic vertebral bodies. Impression: Suspicious cavitary nodule left upper lobe measures [address] PET recommended. Please note that all CT scans at this facility use dose modulation, iterative reconstruction, and/or weight-based dosing when appropriate to reduce radiation dose to as low as reasonably achievable. Dictated by Reinaldo Snider MD @ 02/24/2025 12:57:49 PM (Electronically Signed)
== END 2025-02-24 10:23 | disposition home or self-care (01) ==
LOC: CT 10:23
PROVIDERS: PCP Physician Assistant Medical; Visit Provider Physician Assistant Medical
DX: R91.1 Solitary pulmonary nodule (principal); J43.9 Emphysema, unspecified
CPT/HCPCS: 71250

== ENCOUNTER 2025-03-17 07:44 | Outpatient (CLI) | payer MEDICARE, SELFPAY ==
--- NOTE | 2025-03-17 08:15 | CRLHL7_ITS ---
For Patients: As a result of the 21st Century Cures Act, medical imaging exams and procedure reports are released immediately into your electronic medical record. You may view this report before your referring provider. If you have questions, please contact your health care provider. EXAM: FDG PET-CT Skull Base to Thighs CLINICAL INFORMATION: 84-year-old man with history of lung nodule. PET CT ordered for additional characterization. TECHNIQUE: Radiopharmaceutical: 18F-fluorodeoxyglucose (18F-FDG) Dose: 13.83 MilliCurie. Blood glucose: 78 mg/dL. Image acquisition: At approximately 60 minutes following IV tracer administration via a left antecubital vein, positron emission tomography was performed from the skull base through the mid thigh. Non-contrast low-dose helical CT imaging was performed over the same range without breath-hold for attenuation correction of PET images and anatomic correlation; it is neither sufficient, nor should it be substituted for diagnostic purposes. COMPARISON: CT chest 02/24/2025 FINDINGS: Mediastinal blood pool FDG uptake: SUVMax 2.5 (Image 101) Liver background parenchymal FDG uptake: SUVMax 3.2 (Image 133) PET Findings: Moderately FDG avid 2.3 x 1.5 Cm cavitary lung nodule in the medial left upper lobe SUVMax 7.1 (Image 83). * Mildly FDG avid left suprahilar node SUVmax 2.6, (image 96). * Mildly FDG avid left hilar node SUVmax 3.3, (image 109). No abnormal FDG uptake in the visualized skeleton. Tracer uptake elsewhere is physiologic. Non-PET findings: 0.5 cm lung nodule in the right upper lobe is too small to characterize (image 89). Upper lung predominant centrilobular emphysema. Coronary artery calcifications. Atherosclerotic calcifications of the thoracic and abdominal aorta. Left adrenal gland hyperplasia. Postoperative changes in the small bowel with patent anastomosis in the small bowel in the right lower abdominal quadrant. Colonic diverticulosis. Cystoprostatectomy with diverting ileal conduit. Multilevel degenerative changes in the spine. IMPRESSION: 1. Moderately FDG avid 2.3 x 1.5 Cm cavitary lung nodule in the medial left upper lobe likely represents a primary lung neoplasm. Correlate with tissue sampling pathology. 2. Mildly FDG avid left hilar and left suprahilar nodes may be metastatic. 3. No evidence of FDG avid distant metastatic disease. Dictated by Harshad Sotelo MD @ 03/17/2025 10:28:58 PM (Electronically Signed)
== END 2025-03-17 07:45 | disposition home or self-care (01) ==
LOC: RAD 07:45
PROVIDERS: PCP Physician Assistant Medical; Visit Provider Physician Assistant Medical
DX: R91.1 Solitary pulmonary nodule (principal); R91.8 Other nonspecific abnormal finding of lung field
CPT/HCPCS: 78815; A9552

== ENCOUNTER 2025-04-14 08:56 | Outpatient (CLI) | payer MEDICARE, SELFPAY | END 2025-04-14 08:57 | disposition home or self-care (01) | LOC: NFLDREF 04-19 20:08 | PROVIDERS: PCP Physician Assistant Medical; Referring Provider Physician Assistant Medical; Visit Provider Physician Assistant Medical | DX: R79.89 Other specified abnormal findings of blood chemistry (principal); N17.9 Acute kidney failure, unspecified; R31.0 Gross hematuria | CPT/HCPCS: 80053 ==